=== PATIENT | female | born 1940 | race Caucasian/White ===

== ENCOUNTER 2018-09-08 11:47 | Day surgery (SDC) | payer MEDICARE ==
[~2018-09-08 11:47] MED LIST: Sodium Chloride 0.9% 1000 ML 1,000 ML IV SCH
[2018-09-08] MEDS ORDERED: VERSED 5 MG/5 ML IV ONE (11:48)
[2018-09-08] MEDS ORDERED: DEMEROL 50 MG IV ONE ×2 (11:48)
[2018-09-08] MEDS ORDERED: XYLOCAINE 1% HCL 20 ML MDV ONE (13:13)
--- NOTE | 2018-09-08 14:19 | HP ---
DATE OF SURGERY: 09/08/2018 ADMISSION DIAGNOSIS: Undesired port. ANTICIPATED PROCEDURE: Port removal. HISTORY OF PRESENT ILLNESS: The patient requiring port removal, was placed in [place]. PAST MEDICAL HISTORY: ALLERGIES: NONE. MEDICATIONS: See list. PAST SURGICAL HISTORY: Knee surgery. Elbow surgery. Hysterectomy. SOCIAL HISTORY: Negative. FAMILY HISTORY: Negative. REVIEW OF SYSTEMS: Chronic obstructive pulmonary disease. PHYSICAL EXAMINATION: VITAL SIGNS: Normal. CHEST: Clear. COR: Regular. IMPRESSION: Undesired port. PLAN: Port removal.
[2018-09-08 14:24] VITALS: BP 143/83; PULSE 75; O2SAT 90
--- NOTE | 2018-09-09 08:49 | OP ---
SURGERY DATE/TIME: 09/08/2018 1318 PREOPERATIVE DIAGNOSIS: Undesired port. POSTOPERATIVE DIAGNOSIS: Undesired port. PROCEDURE: Port removal. SURGEON: Ramsey Harp M.D. ANESTHESIA: Local IV sedation. COMPLICATIONS: None. CONDITION: Stable. INDICATION: A patient requiring port removal. DESCRIPTION OF PROCEDURE: Taken to surgery. Routine prep and drape. IV sedation was titrated. Oximetry was kept over 90%. Lidocaine 1%. The catheter port removed in toto, closed with 3-0 Vicryl, 4-0 Vicryl and Steri-Strips. The patient tolerated the procedure satisfactorily.
== END 2018-09-08 14:46 | disposition home or self-care (01) ==
LOC: SDC 11:47
PROVIDERS: ATTEND Surgery
DX: Z45.2 Encounter for adjustment and management of vascular access device (principal); J44.9 Chronic obstructive pulmonary disease, unspecified; Z79.899 Other long term (current) drug therapy
CPT/HCPCS: J2175; J2250

== ENCOUNTER 2024-11-01 12:50 | Observation (INO) | payer MEDICARE ==
[~2024-11-01 12:50] MED LIST changes: +DUONEB 0.5-3 MG/3 ml Neb IH SCH; -Sodium Chloride 0.9% 1000 ML 1,000 ML IV SCH
--- NOTE | 2024-11-01 13:10 | ERPHSYRPT ---
- History of Present Illness Time Seen by Provider: 11/01/24 13:10 Source: patient, family, old records Exam Limitations: clinical condition Physician History: This is a 4-year-old white female patient arrives by private vehicle and is a patient Dr. Ojeda with worsening shortness of breath over this past weekend. Today, the shortness of breath was worse and patient went to the primary care physician's office where her room air oxygen saturation level without oxygen was 80%. Patient arrived to the emergency department with a room air oxygen saturation of 85%. Patient normally wears 3.5 L of oxygen via nasal cannula only at nighttime. However over the weekend she has worn it /. When we placed her on her 3.5 L of oxygen via nasal cannula her oxygen sat duration level increased to 97%. Patient denies chest pain. She has a mild cough. She has not had a fever. Patient has a history of insomnia, hyperlipidemia, gastroesophageal reflux disease, hypothyroidism, coronary disease, COPD, asthma, DVT and is on Xarelto Activities at Onset: none Severity of Dyspnea-Max: moderate Severity of Dyspnea-Current: moderate Possible Cause: occasional episodes Modifying Factors: Improves With: coughing (Mild), exertion (Worsens), oxygen (Improves) Associated Symptoms: No chest pain/discomfort Allergies/Adverse Reactions: No Known Drug Allergies Allergy (Verified 09/08/18 12:00) Home Medications: Albuterol Sulfate 0.63 mg IH Q4HPRN PRN 09/08/18 [History] Ascorbic Acid [Vitamin C] 1,000 mg PO DAILY 09/08/18 [History] Celecoxib [Celebrex] 100 mg PO BID 09/08/18 [History] Cholecalciferol (Vitamin D3) [Vitamin D] 5,000 unit PO DAILY 09/08/18 [History] Escitalopram Oxalate [Lexapro] 10 mg PO DAILY 09/08/18 [History] Levothyroxine Sodium 150 mcg PO DAILY 09/08/18 [History] Multivitamin [Multivitamins] 1 each PO DAILY 09/08/18 [History] Oxybutynin Chloride [Oxybutynin Chloride ER] 10 mg PO DAILY 09/08/18 [History] PANTOPRAZOLE 40 mg Tablet [Protonix 40MG Tablet] 40 mg PO DAILY 09/08/18 [History] Rivaroxaban [Xarelto] 20 mg PO DAILY 09/08/18 [History] Simvastatin 40 mg PO DAILY 09/08/18 [History] Trazodone HCl [Desyrel] 100 mg PO HS 09/08/18 [History] Vitamin B Complex [Super B Complex] 1 each PO DAILY 09/08/18 [History] Travel Risk - International Travel Have you traveled outside of the country in past 3 weeks: No - Emerging Infectious Disease Are you exhibiting symptoms associated with any current EIDs: Yes Symptoms: Cough: New Onset, Shortness of Breath - Review of Systems Constitutional: No Symptoms Eyes: No Symptoms Ears, Nose, & Throat: No Symptoms Respiratory: Dyspnea, Dyspnea on 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) Cardiac: No Symptoms Abdominal/Gastrointestinal: No Symptoms Genitourinary Symptoms: No Symptoms Musculoskeletal: No Symptoms Skin: No Symptoms Neurological: No Symptoms Psychological: No Symptoms Endocrine: No Symptoms Hematologic/Lymphatic: No Symptoms Immunological/Allergic: No Symptoms All Other Systems: Reviewed and Negative - Past Medical History Pertinent Past Medical History: Yes Neurological History: No Pertinent History ENT History: No Pertinent History Cardiac History: Coronary Artery Disease, Deep Vein Thrombosis Respiratory History: Asthma, COPD, Sleep Apnea, Other Endocrine Medical History: No Pertinent History Musculoskeletal History: No Pertinent History GI Medical History: GERD History: No Pertinent History Psycho-Social History: Depression Female Reproductive Disorders: Breast Cancer - Past Surgical History Past Surgical History: Yes Neuro Surgical History: No Pertinent History Cardiac: No Pertinent History Respiratory: No Pertinent History Gastrointestinal: No Pertinent History Genitourinary: No Pertinent History Musculoskeletal: Orthopedic Surgery Female Surgical History: Hysterectomy Other Surgical History: port placement, 2 knee replacements, elbow, veins stripped. - Social History Smoking Status: Former smoker Exposure to second hand smoke: No Drug Use: none - Nursing Vital Signs Nursing Vital Signs: Initial Vital Signs Temperature 98.7 F 11/01/24 12:51 Pulse Rate 98 H 11/01/24 12:51 Respiratory Rate 26 H 11/01/24 12:51 Blood Pressure 147/94 11/01/24 12:51 O2 Sat by Pulse Oximetry 85 L 11/01/24 12:51 Pain Scale Pain Intensity 0 - Physical Exam General Appearance: mild distress, alert, anxiety, obese Eye Exam: PERRL/EOMI, eyes nml inspection Ears, Nose, Throat Exam: hearing grossly normal, normal ENT inspection, normal pharynx Neck Exam: normal inspection, non-tender, supple, full range of motion Respiratory Exam: respiratory distress, diminished breath sounds (I lateral bases), wheezing, No chest tenderness Cardiovascular/Chest Exam: normal heart sounds, regular rate/rhythm Abdominal/Gastrointestinal Exam: soft, normal bowel sounds, No tenderness Rectal Exam: not done Extremity Exam: non-tender, normal range of motion, normal inspection, pelvis stable Neurologic Exam: alert, oriented x 3, cooperative, business development coordinator II-XII nml as tested, nml cerebellar function, nml station & gait, sensation nml Skin Exam: normal color, warm, dry Lymphatic Exam: No adenopathy SpO2 Interpretation: normal O2 Delivery: Room Air - Course Nursing assessment & vital signs reviewed: Yes EKG Interpreted by Me: RATE, Sinus Rhythm, NORMAL AXIS, NORMAL QRS, Other (QTc 450. Prolonged DC interval. No acute ischemia on today's twelve-lead EKG.) Ordered Tests: Active Orders 24 hr Category Date Time Status Motorcycle Sales Associate STAT Care 11/01/24 13:13 Active EKG-ER Only STAT Care 11/01/24 13:12 Active IV Insertion STAT Care 11/01/24 13:12 Active Pulse Oximetry (ED) STAT Care 11/01/24 13:12 Active CHEST 1 VIEW (PORTABLE) Stat Exams 11/01/24 13:13 Completed BLOOD CULTURE Stat Lab 11/01/24 13:35 Received CBC W DIFF Stat Lab 11/01/24 13:35 Completed CMP Stat Lab 11/01/24 13:35 Completed Lactic Acid Stat Lab 11/01/24 13:12 Completed MAGNESIUM Stat Lab 11/01/24 13:35 Completed NT PRO BNPII Stat Lab 11/01/24 13:35 Completed TROPONIN Q4H Lab 11/01/24 13:35 Completed TROPONIN Q4H Lab 11/01/24 17:15 Ordered TROPONIN Q4H Lab 11/01/24 21:15 Ordered VENOUS BLOOD GAS Stat Lab 11/01/24 13:13 Completed Respiratory Therapy Assessment DAILY RT 11/01/24 14:11 Active Medication Summary Discontinued Medications Generic Name Dose Route Start Last Admin Trade Name Freq PRN Reason Stop Dose Admin Albuterol/Ipratropium Confirm 11/01/24 14:05 Ipratropium/Albuterol Sulfate 3 Ml Ampul.Neb Administered 11/01/24 14:06 Dose 3 ml IH .STK-MED ONE Albuterol/Ipratropium 3 ml 11/01/24 14:11 11/01/24 14:11 Ipratropium/Albuterol Sulfate 3 Ml Ampul.Neb IH 11/01/24 14:12 3 ml STAT ONE Administration Ceftriaxone Sodium 1 gm in 100 mls @ 200 mls/hr 11/01/24 13:51 11/01/24 13:56 Rocephin 1 Gm / 100 Ml Nacl IV 11/01/24 14:20 200 mls/hr STAT ONE 200 mls/hr Administration Ceftriaxone Sodium Confirm 11/01/24 13:54 Rocephin 1 Gm / 100 Ml Nacl Administered 11/01/24 13:55 Dose 1 gm in 100 mls @ ud IV .STK-MED ONE Lab/Rad Data: Laboratory Result Diagrams 11/01/24 13:35 11/01/24 13:35 Laboratory Results 11/01/24 11/01/24 11/01/24 Range/Units 13:35 13:35 13:35 WBC 7.7 (3.98-10.04) x10^3/uL RBC 3.77 L (3.93-5.22) x10^6/uL Hgb 12.1 (11.2-15.7) g/dL Hct 37.6 (34.1-44.9) % MCV 99.7 H (79.4-94.8) fL MCH 32.1 (25.6-32.2) pg MCHC 32.2 (32.2-35.5) g/dL RDW 12.5 (11.7-14.4) % Plt Count 239 (182-369) x10^3/uL MPV 9.0 L (9.4-12.3) fL Gran % 57.8 (34.0-71.1) % Immature Gran % (Auto) 0.3 (0.001-0.429) % Nucleat RBC Rel Count 0.0 (0.00-0.2) % Eos # (Auto) 1.18 H (0.04-0.36) x10^3/uL Immature Gran # (Auto) 0.02 (0.001-0.031) x10^3u/L Absolute Lymphs (auto) 1.24 (1.18-3.74) x10^3/uL Absolute Monos (auto) 0.69 (0.24-0.86) x10^3/uL Absolute Nucleated RBC 0.00 (0.00-0.012) x10^3u/L Lymphocytes % 16.0 L (19.3-51.7) % Monocytes % 8.9 (4.7-12.5) % Eosinophils % 15.3 H (0.7-5.8) % Basophils % 1.7 H (0.1-1.2) % Absolute Granulocytes 4.47 (1.56-6.13) x10^3/uL Basophils # 0.13 H (0.01-0.08) x10^3/uL pO2/FiO2 Ratio % VBG pH (7.32-7.42) VBG pCO2 at Pat Temp (42-55) mm/Hg VBG pO2 at Pat Temp (25-40) mm/Hg VBG HCO3 (22-28) meq/L VBG O2 Sat (Dominic) (95-100) VBG Base Excess (-2.0-2.0) VBG Hemoglobin VBG Carboxyhemoglobin (0.0-6.9) % T HGB POC Potassium (3.5-5.1) Sodium 138 (135-145) mmol/L Potassium 4.2 (3.5-5.1) mmol/L Chloride 99 (98-107) mmol/L Carbon Dioxide 30 (22-30) mmol/L Anion Gap 13.2 (5-15) MEQ/L BUN 23 H (7-17) mg/dL Creatinine 1.87 H (0.52-1.04) mg/dL Estimated GFR 26.5 ML/MIN Glucose 102 (74-106) mg/dL Lactic Acid (0.4-2.0) Calcium 11.1 H (8.4-10.2) mg/dL Magnesium 2.2 (1.6-2.3) mg/dL Total Bilirubin 0.30 (0.2-1.3) mg/dL AST 44 H (14-36) U/L ALT 37 H (0-35) U/L Alkaline Phosphatase 83 (38-126) U/L Troponin I < 0.012 (0.000-0.033) ng/mL NT-Pro-B Natriuret Pep 189 (<300) pg/mL Serum Total Protein 6.7 (6.3-8.2) g/dL Albumin 4.3 (3.5-5.0) g/dL Influenza Type A Ag (NEGATIVE) Influenza Type B Ag (NEGATIVE) RSV (PCR) (NEGATIVE) SARS-CoV-2 (PCR) (NEGATIVE) 11/01/24 11/01/24 11/01/24 Range/Units 13:30 13:13 13:12 WBC (3.98-10.04) x10^3/uL RBC (3.93-5.22) x10^6/uL Hgb (11.2-15.7) g/dL Hct (34.1-44.9) % MCV (79.4-94.8) fL MCH (25.6-32.2) pg MCHC (32.2-35.5) g/dL RDW (11.7-14.4) % Plt Count (182-369) x10^3/uL MPV (9.4-12.3) fL Gran % (34.0-71.1) % Immature Gran % (Auto) (0.001-0.429) % Nucleat RBC Rel Count (0.00-0.2) % Eos # (Auto) (0.04-0.36) x10^3/uL Immature Gran # (Auto) (0.001-0.031) x10^3u/L Absolute Lymphs (auto) (1.18-3.74) x10^3/uL Absolute Monos (auto) (0.24-0.86) x10^3/uL Absolute Nucleated RBC (0.00-0.012) x10^3u/L Lymphocytes % (19.3-51.7) % Monocytes % (4.7-12.5) % Eosinophils % (0.7-5.8) % Basophils % (0.1-1.2) % Absolute Granulocytes (1.56-6.13) x10^3/uL Basophils # (0.01-0.08) x10^3/uL pO2/FiO2 Ratio 21.0 % VBG pH 7.43 H (7.32-7.42) VBG pCO2 at Pat Temp 50 (42-55) mm/Hg VBG pO2 at Pat Temp 43 H (25-40) mm/Hg VBG HCO3 33.2 H* (22-28) meq/L VBG O2 Sat (Dominic) 77.6 L (95-100) VBG Base Excess 7.5 H (-2.0-2.0) VBG Hemoglobin 13.3 VBG Carboxyhemoglobin 6.6 (0.0-6.9) % T HGB POC Potassium 4.2 (3.5-5.1) Sodium (135-145) mmol/L Potassium (3.5-5.1) mmol/L Chloride (98-107) mmol/L Carbon Dioxide (22-30) mmol/L Anion Gap (5-15) MEQ/L BUN (7-17) mg/dL Creatinine (0.52-1.04) mg/dL Estimated GFR ML/MIN Glucose (74-106) mg/dL Lactic Acid 1.7 (0.4-2.0) Calcium (8.4-10.2) mg/dL Magnesium (1.6-2.3) mg/dL Total Bilirubin (0.2-1.3) mg/dL AST (14-36) U/L ALT (0-35) U/L Alkaline Phosphatase (38-126) U/L Troponin I (0.000-0.033) ng/mL NT-Pro-B Natriuret Pep (<300) pg/mL Serum Total Protein (6.3-8.2) g/dL Albumin (3.5-5.0) g/dL Influenza Type A Ag NEGATIVE (NEGATIVE) Influenza Type B Ag NEGATIVE (NEGATIVE) RSV (PCR) NEGATIVE (NEGATIVE) SARS-CoV-2 (PCR) NEGATIVE (NEGATIVE) - Progress Progress: improved, re-examined Air Movement: fair Progress Note: 11/01/24 14:26 My medical decision making and the assignment of high complexity of this patient's medical issue today is based on review of the patient's past medical history, review the patient's medication list, reviewed the patient's drug allergy list, history present notes and physical findings on examination. The workup in this patient includes placement of intravenous line, blood culture, CBC, CMP, lactic acid level, twelve-lead EKG, chest x-ray, BNP level, troponin level, PT/INR level. Differential diagnosis includes but is not limited to viral illness, pneumonia, upper respiratory infection, congestive heart failure, myocardial infarction, arrhythmia 11/01/24 14:52 Interpreted the patient's laboratory data results. Based on laboratory data results, the patient does have a GFR of 26. This is a chronic finding. She has mildly elevated transaminase levels. 11/01/24 14:53 I interpreted the patient's preliminary chest x-ray report. Patient has a right lower lobe infiltrate. No other significant findings present. The radiologist interpreted the patient's final chest x-ray report. The impression states bilateral lower lung interstitial opacities. Possible pneumonia/pneumonitis 11/01/24 15:[address] Justice, the telehospitalist on at this time. I reviewed the patient history, presenting complaint, workup performed and the results of the workup. He accepts the patient to be placed in observation. Will continue monitoring this patient and repeat twelve-lead EKG, provide the patient with oxygen, RT evaluation and intravenous antibiotics Blood Culture(s) Obtained: Yes Antibiotics given: Yes Counseled pt/family regarding: lab results, diagnosis, rad results Medical Desision Making - Independent Historian Additional History obtained from: Family - Diagnostic Testing Diagnostic test were ordered, analyzed, and reviewed by me: Yes Radiological Interpretation: Interpreted by me, Reviewed by me, Teleradiologist Report - Risk of complications The pt has a high risk of morbidity or mortality based on: Decision regarding hospitilization or escalation of hosp level of care - Departure Departure Disposition: Observation Clinical Impression: Shortness of breath, Hypoxia, Bilateral pneumonia Condition: Fair Critical Care Time: Yes Critical Care Time(excluding separately billable procedures): Critical 30-74 mins (65) Referrals: CLAIRE MAY MD [Primary Care Provider, [facility]] - Follow up/PCP as directed
--- NOTE | 2024-11-01 13:49 | XRAY ---
Indication: Short of breath. Comparison: None Portable chest demonstrates bilateral lower lung interstitial alveolar opacities, possible pneumonia/pneumonitis in right clinical setting. No consolidation/large effusion. Heart not enlarged with large hiatal hernia and intrathoracic stomach occupying left lung base. Bony thorax intact with osteopenia and degenerative changes.
[2024-11-01] MEDS ORDERED: ROCEPHIN 1 GM / 100 ML NaCl 1 GM/100 ML IVPB IV ONE (13:54)
[2024-11-01 13:56] LABS: BASOPHIL % 1.7 % (0.1-1.2); Basophil (Absolute #) 0.13 x10^3/uL (0.01-0.08); Eosinophil (Absolute #) 1.18 x10^3/uL (0.04-0.36); Hematocrit 37.6 % (34.1-44.9); Hemoglobin 12.1 g/dL (11.2-15.7); IMMATURE GRAN # 0.02 x10^3u/L (0.001-0.031); IMMATURE GRAN % 0.3 % (0.001-0.429); Lymphocyte (Absolute #) 1.24 x10^3/uL (1.18-3.74); Mean Corpuscular Hemoglobin 32.1 pg (25.6-32.2); Mean Corpuscular Hgb Concent. 32.2 g/dL (32.2-35.5); Monocyte (Absolute #) 0.69 x10^3/uL (0.24-0.86); NUCLEATED RBC # 0.00 x10^3u/L (0.00-0.012); NUCLEATED RBC % 0.0 % (0.00-0.2); Platelet Count 239 x10^3/uL (182-369); Red Blood Count 3.77 x10^6/uL (3.93-5.22); White Blood Count 7.7 x10^3/uL (3.98-10.04)
[2024-11-01] MEDS: ROCEPHIN 1 GM / 100 ML NaCl 1 GM/100 ML IVPB IV ONE (13:56)
[2024-11-01 14:05] LABS: VBG BASE EXCESS 7.5 (-2.0-2.0); VBG CARBOXYHEMOGLOBIN 6.6 % T HGB (0.0-6.9); VBG FIO2 21.0 %; VBG HCO3- 33.2 meq/L (22-28); VBG HEMOGLOBIN 13.3; VBG O2 SATURATION 77.6 (95-100); VBG PCO2 50.0 mm/Hg (42-55); VBG PO2 43.0 mm/Hg (25-40); VBG POTASSIUM 4.2 (3.5-5.1)
[2024-11-01] MEDS ORDERED: DUONEB 0.5-3 MG/3 ml Neb IH ONE (14:05)
[2024-11-01] MEDS: DUONEB 0.5-3 MG/3 ml Neb IH ONE (14:11)
[2024-11-01 14:24] LABS: Calcium 11.1 mg/dL (8.4-10.2); Carbon Dioxide 30.0 mmol/L (22-30); Creatinine 1 1.87 mg/dL (0.52-1.04); EST GLOMERULAR FILTRATION RATE 26.5 ML/MIN; Glucose 102.0 mg/dL (74-106); NT PRO BNPII 189.0 pg/mL (<300); Potassium 4.2 mmol/L (3.5-5.1); SGOT/AST 44.0 U/L (14-36); SGPT/ALT 37.0 U/L (0-35); Total Protein 6.7 g/dL (6.3-8.2)
[2024-11-01 14:46] LABS: INFLUENZA A NEGATIVE (NEGATIVE); INFLUENZA B NEGATIVE (NEGATIVE); RESPIRATORY SYNCTIAL VIRUS NEGATIVE (NEGATIVE); SARS-CoV-2 Xpert Express NEGATIVE (NEGATIVE)
[2024-11-01] MEDS ORDERED: Zofran 4 MG/2 ML VIAL IV PRN (16:47)
[2024-11-01] MEDS ORDERED: DUONEB 0.5-3 MG/3 ml Neb IH PRN (17:11)
--- NOTE | 2024-11-01 17:25 | PCM.HP ---
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 She presented to the emergency department on 11/01/24 with complaints of worsening shortness of breath that began over the weekend and acutely worsened on the day of presentation, when her primary care provider noted a room air oxygen saturation of 80%. She reports a productive cough with yellow/brown production and wheezing. She denies fever, CP, abdominal pain, N/V/D, headache or recent sick contacts. On arrival to the ED, she was hypoxic, tachycardic, and tachypneic, with room air oxygen saturation of 85%. She was placed on oxygen at 2L with spo2 recovered at 94% . EKG showed sinus rhythm without ischemic changes. Labs revealed creatinine 1.87 mg/dL (baseline1.38), AST 44 U/L and ALT 37 U/L (mild elevation from baseline), negative troponin on initial draw, and negative respiratory viral panel. Venous blood gas demonstrated pH 7.43, PO? 43 mmHg, NAK415.2 mmol/L, O? saturation 77.6%, and base excess +7.5, consistent with compensated metabolic alkalosis and hypoxemia. Chest X-ray revealed bilateral lower lung interstitial-alveolar opacities concerning for pneumonia, without kelly consolidation or effusion. The heart was not enlarged. Additional findings included a large hiatal hernia with intrathoracic stomach occupying the left lung base, contributing to reduced lung expansion. No acute pleural effusion was seen. In the ED, she received DuoNebs, ceftriaxone, and azithromycin. She was admitted for further management. - Review of Systems Constitutional: Weakness Eyes: No Symptoms Ears, Nose, & Throat: No Symptoms Respiratory: Cough, Short Of Breath, Wheezing Cardiac: No Symptoms Abdominal/Gastrointestinal: No Symptoms Genitourinary Symptoms: No Symptoms Musculoskeletal: No Symptoms Skin: No Symptoms Neurological: No Symptoms Psychological: No Symptoms Endocrine: No Symptoms Hematologic/Lymphatic: No Symptoms Immunological/Allergic: No Symptoms Medications & Allergies Home Medications: Home Medication List Allopurinol 300 mg [Zyloprim 300 mg] 300 mg PO DAILY 11/01/24 [History Confirmed 11/01/24] Amlodipine Besylate 5 mg [Norvasc 5 mg] 5 mg PO DAILY 11/01/24 [History Confirmed 11/01/24] Levothyroxine Sodium 112 Mcg [Synthroid 112 Mcg] 112 mcg PO DAILY 11/01/24 [History Confirmed 11/01/24] Multivit-Min/Iron/Folic/Lutein [Centrum Silver Women Tablet] 1 each PO DAILY 11/01/24 [History Confirmed 11/01/24] Pantoprazole Sodium [Protonix] 40 mg PO DAILY 11/01/24 [History Confirmed 11/01/24] Rivaroxaban [Xarelto] 20 mg PO HS 11/01/24 [History Confirmed 11/01/24] Simvastatin 40 mg PO HS 11/01/24 [History Confirmed 11/01/24] Spironolactone 25 mg PO DAILY 11/01/24 [History Confirmed 11/01/24] Torsemide 20 mg [Demadex 20 mg] 20 mg PO DAILY 11/01/24 [History Confirmed 11/01/24] Tramadol HCl 25 mg PO DAILY 11/01/24 [History Confirmed 11/01/24] Tramadol HCl 50 mg [Ultram 50 mg] 50 mg PO HS 11/01/24 [History Confirmed 11/01/24] Vilazodone HCl 20 mg PO DAILY 11/01/24 [History Confirmed 11/01/24] Allergies/Adverse Reactions: Allergies Allergy/AdvReac Type Severity Reaction Status Date / Time No Known Drug Allergies Allergy Verified 09/08/18 12:00 - Past Medical History Past Medical History: Yes Neurological History: No Pertinent History ENT History: No Pertinent History Cardiac History: Coronary Artery Disease, Deep Vein Thrombosis Respiratory History: Asthma, COPD, Sleep Apnea, Other Endocrine Medical History: No Pertinent History Musculoskelatal History: No Pertinent History GI Medical History: GERD History: No Pertinent History Pyscho-Social History: Depression Reproductive Disorders: Breast Cancer - Past Surgical History Past Surgical History: Yes Neuro Surgical History: No Pertinent History Cardiac History: No Pertinent History Respiratory Surgery: No Pertinent History GI Surgical History: No Pertinent History Genitourinary Surgical Hx: No Pertinent History Musculskeletal Surgical Hx: Orthopedic Surgery Female Surgical History: Hysterectomy Other Surgical History: Patient states. 2 knee replacements and veins stripped in legs - Social History Smoking Status: Former smoker Exposure to second hand smoke: No Alcohol: None Drug Use: none - Social Determinants of Health Will the patient participate in the screening: Declined to provide - Physical Exam Vital Signs: Vital Signs - 24 hr Temp Pulse Resp BP BP Pulse Ox 11/01/24 16:00 74 19 121/72 94 L 11/01/24 15:33 74 14 97/47 94 L 11/01/24 15:32 77 17 75/60 92 L 11/01/24 15:00 83 16 101/70 93 L 11/01/24 14:30 77 18 107/83 91 L 11/01/24 14:12 81 20 98 11/01/24 14:00 72 14 106/73 95 11/01/24 13:53 74 18 98/71 98 11/01/24 13:52 71 17 97 11/01/24 13:51 71 21 96 11/01/24 13:40 0 L 11 L 11/01/24 13:31 0 L 15 98 11/01/24 13:12 97 11/01/24 13:00 0 L 17 134/98 97 11/01/24 12:53 100 H 12 147/94 11/01/24 12:51 98.7 F 98 H 26 H 147/94 85 L General Appearance: no apparent distress Neurologic Exam: alert, oriented x 3, cooperative Eye Exam: PERRL/EOMI Ears, Nose, Throat Exam: normal ENT inspection Neck Exam: normal inspection Respiratory Exam: crackles/rales, wheezing Cardiovascular Exam: regular rate/rhythm, normal heart sounds Pelvic Exam: not done Rectal Exam: deferred Back Exam: normal inspection Extremity Exam: normal inspection Skin Exam: normal color Results - Labs Lab/Micro Results: Lab Results-Last 24 Hours 11/01/24 11/01/24 11/01/24 Range/Units 13:12 13:13 13:30 WBC (3.98-10.04) x10^3/uL RBC (3.93-5.22) x10^6/uL Hgb (11.2-15.7) g/dL Hct (34.1-44.9) % MCV (79.4-94.8) fL MCH (25.6-32.2) pg MCHC (32.2-35.5) g/dL RDW (11.7-14.4) % Plt Count (182-369) x10^3/uL MPV (9.4-12.3) fL Gran % (34.0-71.1) % Immature Gran % (Auto) (0.001-0.429) % Nucleat RBC Rel Count (0.00-0.2) % Eos # (Auto) (0.04-0.36) x10^3/uL Immature Gran # (Auto) (0.001-0.031) x10^3u/L Absolute Lymphs (auto) (1.18-3.74) x10^3/uL Absolute Monos (auto) (0.24-0.86) x10^3/uL Absolute Nucleated RBC (0.00-0.012) x10^3u/L Lymphocytes % (19.3-51.7) % Monocytes % (4.7-12.5) % Eosinophils % (0.7-5.8) % Basophils % (0.1-1.2) % Absolute Granulocytes (1.56-6.13) x10^3/uL Basophils # (0.01-0.08) x10^3/uL pO2/FiO2 Ratio 21.0 % VBG pH 7.43 H (7.32-7.42) VBG pCO2 at Pat Temp 50 (42-55) mm/Hg VBG pO2 at Pat Temp 43 H (25-40) mm/Hg VBG HCO3 33.2 H* (22-28) meq/L VBG O2 Sat (Dominic) 77.6 L (95-100) VBG Base Excess 7.5 H (-2.0-2.0) VBG Hemoglobin 13.3 VBG Carboxyhemoglobin 6.6 (0.0-6.9) % T HGB POC Potassium 4.2 (3.5-5.1) Sodium (135-145) mmol/L Potassium (3.5-5.1) mmol/L Chloride (98-107) mmol/L Carbon Dioxide (22-30) mmol/L Anion Gap (5-15) MEQ/L BUN (7-17) mg/dL Creatinine (0.52-1.04) mg/dL Estimated GFR ML/MIN Glucose (74-106) mg/dL Lactic Acid 1.7 (0.4-2.0) Calcium (8.4-10.2) mg/dL Magnesium (1.6-2.3) mg/dL Total Bilirubin (0.2-1.3) mg/dL AST (14-36) U/L ALT (0-35) U/L Alkaline Phosphatase (38-126) U/L Troponin I (0.000-0.033) ng/mL NT-Pro-B Natriuret Pep (<300) pg/mL Serum Total Protein (6.3-8.2) g/dL Albumin (3.5-5.0) g/dL Influenza Type A Ag NEGATIVE (NEGATIVE) Influenza Type B Ag NEGATIVE (NEGATIVE) RSV (PCR) NEGATIVE (NEGATIVE) SARS-CoV-2 (PCR) NEGATIVE (NEGATIVE) 11/01/24 11/01/24 11/01/24 Range/Units 13:35 13:35 13:35 WBC 7.7 (3.98-10.04) x10^3/uL RBC 3.77 L (3.93-5.22) x10^6/uL Hgb 12.1 (11.2-15.7) g/dL Hct 37.6 (34.1-44.9) % MCV 99.7 H (79.4-94.8) fL MCH 32.1 (25.6-32.2) pg MCHC 32.2 (32.2-35.5) g/dL RDW 12.5 (11.7-14.4) % Plt Count 239 (182-369) x10^3/uL MPV 9.0 L (9.4-12.3) fL Gran % 57.8 (34.0-71.1) % Immature Gran % (Auto) 0.3 (0.001-0.429) % Nucleat RBC Rel Count 0.0 (0.00-0.2) % Eos # (Auto) 1.18 H (0.04-0.36) x10^3/uL Immature Gran # (Auto) 0.02 (0.001-0.031) x10^3u/L Absolute Lymphs (auto) 1.24 (1.18-3.74) x10^3/uL Absolute Monos (auto) 0.69 (0.24-0.86) x10^3/uL Absolute Nucleated RBC 0.00 (0.00-0.012) x10^3u/L Lymphocytes % 16.0 L (19.3-51.7) % Monocytes % 8.9 (4.7-12.5) % Eosinophils % 15.3 H (0.7-5.8) % Basophils % 1.7 H (0.1-1.2) % Absolute Granulocytes 4.47 (1.56-6.13) x10^3/uL Basophils # 0.13 H (0.01-0.08) x10^3/uL pO2/FiO2 Ratio % VBG pH (7.32-7.42) VBG pCO2 at Pat Temp (42-55) mm/Hg VBG pO2 at Pat Temp (25-40) mm/Hg VBG HCO3 (22-28) meq/L VBG O2 Sat (Dominic) (95-100) VBG Base Excess (-2.0-2.0) VBG Hemoglobin VBG Carboxyhemoglobin (0.0-6.9) % T HGB POC Potassium (3.5-5.1) Sodium 138 (135-145) mmol/L Potassium 4.2 (3.5-5.1) mmol/L Chloride 99 (98-107) mmol/L Carbon Dioxide 30 (22-30) mmol/L Anion Gap 13.2 (5-15) MEQ/L BUN 23 H (7-17) mg/dL Creatinine 1.87 H (0.52-1.04) mg/dL Estimated GFR 26.5 ML/MIN Glucose 102 (74-106) mg/dL Lactic Acid (0.4-2.0) Calcium 11.1 H (8.4-10.2) mg/dL Magnesium 2.2 (1.6-2.3) mg/dL Total Bilirubin 0.30 (0.2-1.3) mg/dL AST 44 H (14-36) U/L ALT 37 H (0-35) U/L Alkaline Phosphatase 83 (38-126) U/L Troponin I < 0.012 (0.000-0.033) ng/mL NT-Pro-B Natriuret Pep 189 (<300) pg/mL Serum Total Protein 6.7 (6.3-8.2) g/dL Albumin 4.3 (3.5-5.0) g/dL Influenza Type A Ag (NEGATIVE) Influenza Type B Ag (NEGATIVE) RSV (PCR) (NEGATIVE) SARS-CoV-2 (PCR) (NEGATIVE) - Radiology Impressions Radiology Exams & Impressions: Radiology Procedures Category Date Time Status CHEST 1 VIEW (PORTABLE) Stat Exams 11/01/24 13:13 Completed - Other Procedures and Tests Respiratory Therapy 11/01/24 16:47 EKG REPEAT IN AM Oxygen Nasal Cannula 3.5 lpm Respiratory Therapy Consult ONCE 11/01/24 17:11 Respiratory MDI UD 11/01/24 17:12 BiPap/CPAP ROUTINE Respiratory Therapy Assessment DAILY Assessment/Plan (1) Acute respiratory failure with hypoxia Current Visit: Yes Status: Acute Assessment & Plan: -secondary to community-acquired pneumonia in the setting of COPD - CXR demonstrating pneumonia -Continue ceftriaxone and azithromycin -Add Solu-Medrol 40 mg IV q12h -Continue DuoNebs scheduled and PRN -Continue home inhalers -CPAP at night with 3 L O2 -Supplemental oxygen to maintain SpO2> 90% -Flutter therapy and incentive spirometer for pulmonary hygiene -RT evaluation for ongoing therapy and optimization of airway clearance -Monitor for clinical improvement and repeat imaging if deterioration occurs -check DDimer- CTA if elevated with h/o multiple clots and previous failure of anticoag Code(s): J96.01 - ACUTE RESPIRATORY FAILURE WITH HYPOXIA (2) MALIK (acute kidney injury) Current Visit: Yes Status: Acute Assessment & Plan: -Monitor renal function and electrolytes -Avoid nephrotoxic agents -Adjust antibiotic dosing if renal function worsens -baseline creat at 1.38 - reviewed at 1.87 -gentle hydration Code(s): N17.9 - ACUTE KIDNEY FAILURE, UNSPECIFIED (3) Pneumonia Current Visit: Yes Status: Acute Assessment & Plan: -see ARF Code(s): J18.9 - PNEUMONIA, UNSPECIFIED ORGANISM (4) COPD exacerbation Current Visit: Yes Status: Acute Assessment & Plan: -see ARF Code(s): J44.1 - CHRONIC OBSTRUCTIVE PULMONARY DISEASE W (ACUTE) EXACERBATION (5) Hypothyroid Current Visit: Yes Status: Acute Assessment & Plan: -Continue levothyroxine Code(s): E03.9 - HYPOTHYROIDISM, UNSPECIFIED (6) History of pulmonary embolism Current Visit: Yes Status: Acute Assessment & Plan: -continue xarelto Code(s): Z86.711 - PERSONAL HISTORY OF PULMONARY EMBOLISM (7) History of DVT (deep vein thrombosis) Current Visit: Yes Status: Acute Assessment & Plan: -continue xarelto Code(s): Z86.718 - PERSONAL HISTORY OF OTHER VENOUS THROMBOSIS AND EMBOLISM (8) CAD (coronary artery disease) Current Visit: Yes Status: Acute Assessment & Plan: -continue home meds Code(s): I25.10 - ATHSCL HEART DISEASE OF [place] CORONARY ARTERY W/O ANG PCTRS (9) HLD (hyperlipidemia) Current Visit: Yes Status: Acute Assessment & Plan: -continue statin Code(s): E78.5 - HYPERLIPIDEMIA, UNSPECIFIED (10) History of breast cancer Current Visit: Yes Status: Acute Assessment & Plan: -s/p chemo/radiation/lumpectomy - 8 years ago VTE: Xarelto PPI: protonix Dispo: 1-3 days Code status: Full Code Plan of care time spent 45 minutes Code(s): Z85.3 - PERSONAL HISTORY OF MALIGNANT NEOPLASM OF BREAST Telemedicine Encounter - Telemedicine Encounter Telemedicine Encounter: "The entirety of this encounter was performed via Telemedicine" This visit was performed using real-time audio and video connection between my location and thepatients locationwith the assistance of a surrogateat the patients location. Written or verbal consent was obtained from the patient/guardian to perform this [facility]. Any patient questions regarding the telemedicine interaction were answered.
[2024-11-01] MEDS: Advair Hfa 115/21 Common canister IH SCH (17:40)
[2024-11-01] MEDS: DUONEB 0.5-3 MG/3 ml Neb IH SCH (17:41)
[2024-11-01] MEDS: ZITHROMAX IV*** 500 MG in Sodium Chloride 0.9% 250 ML 250 ML IV SCH (19:04)
[2024-11-01] MEDS ORDERED: XARELTO 10 MG TABLET ONE (22:30)
[2024-11-01] MEDS ORDERED: ZOCOR 20MG ONE (22:31)
[2024-11-01] MEDS ORDERED: Sterile H2O 10 ml IJ ONE (22:31)
[2024-11-01] MEDS: solu-MEDROL 40 MG, Sterile H2O 10 ml 1 ML IV SCH (22:43)
[2024-11-01] MEDS: NON-FORMULARY ITEM (Rivaroxaban [Xarelto] 20 MG Tablet) PO SCH (22:44)
[2024-11-01] MEDS: TYLENOL EXTRA STRENGTH 500 MG PO SCH (22:44)
[2024-11-01] MEDS: ULTRAM 50 MG PO SCH (22:45)
[2024-11-01] MEDS: NON-FORMULARY ITEM (Simvastatin [Simvastatin] 40 MG Tablet) PO SCH (22:45)
[2024-11-01] MEDS: BENADRYL 25 MG CAPSULE PO PRN (22:45)
--- NOTE | 2024-11-02 05:17 | PCM.NOTE ---
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 She presented to the emergency department on 11/01/24 with complaints of worsening shortness of breath that began over the weekend and acutely worsened on the day of presentation, when her primary care provider noted a room air oxygen saturation of 80%. She reports a productive cough with yellow/brown production and wheezing. She denies fever, CP, abdominal pain, N/V/D, headache or recent sick contacts. On arrival to the ED, she was hypoxic, tachycardic, and tachypneic, with room air oxygen saturation of 85%. She was placed on oxygen at 2L with spo2 recovered at 94% . EKG showed sinus rhythm without ischemic changes. Labs revealed creatinine 1.87 mg/dL (baseline1.38), AST 44 U/L and ALT 37 U/L (mild elevation from baseline), negative troponin on initial draw, and negative respiratory viral panel. Venous blood gas demonstrated pH 7.43, PO? 43 mmHg, NLU139.2 mmol/L, O? saturation 77.6%, and base excess +7.5, consistent with compensated metabolic alkalosis and hypoxemia. Chest X-ray revealed bilateral lower lung interstitial-alveolar opacities concerning for pneumonia, without kelly consolidation or effusion. The heart was not enlarged. Additional findings included a large hiatal hernia with intrathoracic stomach occupying the left lung base, contributing to reduced lung expansion. No acute pleural effusion was seen. In the ED, she received DuoNebs, ceftriaxone, and azithromycin. She was admitted for further management. 11/02/24: Met with patient bedside. Endorses significant improvement in dyspnea. Lung sounds with wheezing throughout and remains at 3L oxygen. Labs with noted improvement to creat now at 1.78 from 1.87 with 1.4 baseline. Plan for continued abx/steroids/ IVF. Most likely can dc home tomorrow pending clinical response. Will attempt to titrate oxygen. - Review of Systems Constitutional: No Symptoms Eyes: No Symptoms Ears, Nose, & Throat: No Symptoms Respiratory: Cough, Short Of Breath, Wheezing Cardiac: No Symptoms Abdominal/Gastrointestinal: No Symptoms Genitourinary Symptoms: No Symptoms Musculoskeletal: No Symptoms Skin: No Symptoms Neurological: No Symptoms Psychological: No Symptoms Endocrine: No Symptoms Hematologic/Lymphatic: No Symptoms Immunological/Allergic: No Symptoms Objective Exam General Appearance: no apparent distress Neurologic Exam: alert, oriented x 3, cooperative Skin Exam: normal color Eye Exam: PERRL Ears, Nose, Throat Exam: TM abnormal (R) Neck Exam: normal inspection Respiratory Exam: diminished breath sounds, wheezing Cardiovascular Exam: regular rate/rhythm, normal heart sounds Gastrointestinal/Abdomen Exam: soft, normal bowel sounds Extremity Exam: normal inspection Back Exam: normal inspection Pelvic Exam: deferred Rectal Exam: deferred Objective Data Vital Signs: Vital Signs - 24 hr Temp Pulse Resp BP BP Pulse Ox 11/02/24 03:00 97.8 F 78 20 139/66 93 L 11/02/24 01:04 68 20 91 L 11/01/24 23:00 98.3 F 72 18 104/61 94 L 11/01/24 19:00 97.7 F 69 20 111/56 95 11/01/24 17:52 96 11/01/24 17:44 81 20 96 11/01/24 16:00 74 19 121/72 94 L 11/01/24 15:33 74 14 97/47 94 L 11/01/24 15:32 77 17 75/60 92 L 11/01/24 15:00 83 16 101/70 93 L 11/01/24 14:30 77 18 107/83 91 L 11/01/24 14:12 81 20 98 11/01/24 14:00 72 14 106/73 95 11/01/24 13:53 74 18 98/71 98 11/01/24 13:52 71 17 97 11/01/24 13:51 71 21 96 11/01/24 13:40 0 L 11 L 11/01/24 13:31 0 L 15 98 11/01/24 13:12 97 11/01/24 13:00 0 L 17 134/98 97 11/01/24 12:53 100 H 12 147/94 11/01/24 12:51 98.7 F 98 H 26 H 147/94 85 L Pain Assessment - Last Documented Pain Intensity 0 Intake and Output: Intake & Output 10/30/24 10/31/24 11/01/24 11/02/24 11:59 11:59 11:59 11:59 Intake Total 100 Balance 100 Weight 120.8 kg Lab Results: Lab Results-Last 24 Hours 11/01/24 11/01/24 11/01/24 Range/Units 13:12 13:13 13:30 WBC (3.98-10.04) x10^3/uL RBC (3.93-5.22) x10^6/uL Hgb (11.2-15.7) g/dL Hct (34.1-44.9) % MCV (79.4-94.8) fL MCH (25.6-32.2) pg MCHC (32.2-35.5) g/dL RDW (11.7-14.4) % Plt Count (182-369) x10^3/uL MPV (9.4-12.3) fL Gran % (34.0-71.1) % Immature Gran % (Auto) (0.001-0.429) % Nucleat RBC Rel Count (0.00-0.2) % Eos # (Auto) (0.04-0.36) x10^3/uL Immature Gran # (Auto) (0.001-0.031) x10^3u/L Absolute Lymphs (auto) (1.18-3.74) x10^3/uL Absolute Monos (auto) (0.24-0.86) x10^3/uL Absolute Nucleated RBC (0.00-0.012) x10^3u/L Lymphocytes % (19.3-51.7) % Monocytes % (4.7-12.5) % Eosinophils % (0.7-5.8) % Basophils % (0.1-1.2) % Absolute Granulocytes (1.56-6.13) x10^3/uL Basophils # (0.01-0.08) x10^3/uL D-Dimer (0.0-0.50) mg/L pO2/FiO2 Ratio 21.0 % VBG pH 7.43 H (7.32-7.42) VBG pCO2 at Pat Temp 50 (42-55) mm/Hg VBG pO2 at Pat Temp 43 H (25-40) mm/Hg VBG HCO3 33.2 H* (22-28) meq/L VBG O2 Sat (Dominic) 77.6 L (95-100) VBG Base Excess 7.5 H (-2.0-2.0) VBG Hemoglobin 13.3 VBG Carboxyhemoglobin 6.6 (0.0-6.9) % T HGB POC Potassium 4.2 (3.5-5.1) Sodium (135-145) mmol/L Potassium (3.5-5.1) mmol/L Chloride (98-107) mmol/L Carbon Dioxide (22-30) mmol/L Anion Gap (5-15) MEQ/L BUN (7-17) mg/dL Creatinine (0.52-1.04) mg/dL Estimated GFR ML/MIN Glucose (74-106) mg/dL Lactic Acid 1.7 (0.4-2.0) Calcium (8.4-10.2) mg/dL Magnesium (1.6-2.3) mg/dL Total Bilirubin (0.2-1.3) mg/dL AST (14-36) U/L ALT (0-35) U/L Alkaline Phosphatase (38-126) U/L Troponin I (0.000-0.033) ng/mL NT-Pro-B Natriuret Pep (<300) pg/mL Serum Total Protein (6.3-8.2) g/dL Albumin (3.5-5.0) g/dL Influenza Type A Ag NEGATIVE (NEGATIVE) Influenza Type B Ag NEGATIVE (NEGATIVE) RSV (PCR) NEGATIVE (NEGATIVE) SARS-CoV-2 (PCR) NEGATIVE (NEGATIVE) 11/01/24 11/01/24 11/01/24 Range/Units 13:35 13:35 13:35 WBC 7.7 (3.98-10.04) x10^3/uL RBC 3.77 L (3.93-5.22) x10^6/uL Hgb 12.1 (11.2-15.7) g/dL Hct 37.6 (34.1-44.9) % MCV 99.7 H (79.4-94.8) fL MCH 32.1 (25.6-32.2) pg MCHC 32.2 (32.2-35.5) g/dL RDW 12.5 (11.7-14.4) % Plt Count 239 (182-369) x10^3/uL MPV 9.0 L (9.4-12.3) fL Gran % 57.8 (34.0-71.1) % Immature Gran % (Auto) 0.3 (0.001-0.429) % Nucleat RBC Rel Count 0.0 (0.00-0.2) % Eos # (Auto) 1.18 H (0.04-0.36) x10^3/uL Immature Gran # (Auto) 0.02 (0.001-0.031) x10^3u/L Absolute Lymphs (auto) 1.24 (1.18-3.74) x10^3/uL Absolute Monos (auto) 0.69 (0.24-0.86) x10^3/uL Absolute Nucleated RBC 0.00 (0.00-0.012) x10^3u/L Lymphocytes % 16.0 L (19.3-51.7) % Monocytes % 8.9 (4.7-12.5) % Eosinophils % 15.3 H (0.7-5.8) % Basophils % 1.7 H (0.1-1.2) % Absolute Granulocytes 4.47 (1.56-6.13) x10^3/uL Basophils # 0.13 H (0.01-0.08) x10^3/uL D-Dimer (0.0-0.50) mg/L pO2/FiO2 Ratio % VBG pH (7.32-7.42) VBG pCO2 at Pat Temp (42-55) mm/Hg VBG pO2 at Pat Temp (25-40) mm/Hg VBG HCO3 (22-28) meq/L VBG O2 Sat (Dominic) (95-100) VBG Base Excess (-2.0-2.0) VBG Hemoglobin VBG Carboxyhemoglobin (0.0-6.9) % T HGB POC Potassium (3.5-5.1) Sodium 138 (135-145) mmol/L Potassium 4.2 (3.5-5.1) mmol/L Chloride 99 (98-107) mmol/L Carbon Dioxide 30 (22-30) mmol/L Anion Gap 13.2 (5-15) MEQ/L BUN 23 H (7-17) mg/dL Creatinine 1.87 H (0.52-1.04) mg/dL Estimated GFR 26.5 ML/MIN Glucose 102 (74-106) mg/dL Lactic Acid (0.4-2.0) Calcium 11.1 H (8.4-10.2) mg/dL Magnesium 2.2 (1.6-2.3) mg/dL Total Bilirubin 0.30 (0.2-1.3) mg/dL AST 44 H (14-36) U/L ALT 37 H (0-35) U/L Alkaline Phosphatase 83 (38-126) U/L Troponin I < 0.012 (0.000-0.033) ng/mL NT-Pro-B Natriuret Pep 189 (<300) pg/mL Serum Total Protein 6.7 (6.3-8.2) g/dL Albumin 4.3 (3.5-5.0) g/dL Influenza Type A Ag (NEGATIVE) Influenza Type B Ag (NEGATIVE) RSV (PCR) (NEGATIVE) SARS-CoV-2 (PCR) (NEGATIVE) 11/01/24 11/01/24 11/01/24 Range/Units 17:01 21:45 21:45 WBC (3.98-10.04) x10^3/uL RBC (3.93-5.22) x10^6/uL Hgb (11.2-15.7) g/dL Hct (34.1-44.9) % MCV (79.4-94.8) fL MCH (25.6-32.2) pg MCHC (32.2-35.5) g/dL RDW (11.7-14.4) % Plt Count (182-369) x10^3/uL MPV (9.4-12.3) fL Gran % (34.0-71.1) % Immature Gran % (Auto) (0.001-0.429) % Nucleat RBC Rel Count (0.00-0.2) % Eos # (Auto) (0.04-0.36) x10^3/uL Immature Gran # (Auto) (0.001-0.031) x10^3u/L Absolute Lymphs (auto) (1.18-3.74) x10^3/uL Absolute Monos (auto) (0.24-0.86) x10^3/uL Absolute Nucleated RBC (0.00-0.012) x10^3u/L Lymphocytes % (19.3-51.7) % Monocytes % (4.7-12.5) % Eosinophils % (0.7-5.8) % Basophils % (0.1-1.2) % Absolute Granulocytes (1.56-6.13) x10^3/uL Basophils # (0.01-0.08) x10^3/uL D-Dimer < 0.19 (0.0-0.50) mg/L pO2/FiO2 Ratio % VBG pH (7.32-7.42) VBG pCO2 at Pat Temp (42-55) mm/Hg VBG pO2 at Pat Temp (25-40) mm/Hg VBG HCO3 (22-28) meq/L VBG O2 Sat (Dominic) (95-100) VBG Base Excess (-2.0-2.0) VBG Hemoglobin VBG Carboxyhemoglobin (0.0-6.9) % T HGB POC Potassium (3.5-5.1) Sodium (135-145) mmol/L Potassium (3.5-5.1) mmol/L Chloride (98-107) mmol/L Carbon Dioxide (22-30) mmol/L Anion Gap (5-15) MEQ/L BUN (7-17) mg/dL Creatinine (0.52-1.04) mg/dL Estimated GFR ML/MIN Glucose (74-106) mg/dL Lactic Acid (0.4-2.0) Calcium (8.4-10.2) mg/dL Magnesium (1.6-2.3) mg/dL Total Bilirubin (0.2-1.3) mg/dL AST (14-36) U/L ALT (0-35) U/L Alkaline Phosphatase (38-126) U/L Troponin I < 0.012 < 0.012 (0.000-0.033) ng/mL NT-Pro-B Natriuret Pep (<300) pg/mL Serum Total Protein (6.3-8.2) g/dL Albumin (3.5-5.0) g/dL Influenza Type A Ag (NEGATIVE) Influenza Type B Ag (NEGATIVE) RSV (PCR) (NEGATIVE) SARS-CoV-2 (PCR) (NEGATIVE) Radiology Exams: Radiology Procedures Category Date Time Status CHEST 1 VIEW (PORTABLE) Stat Exams 11/01/24 13:13 Completed Medications: Medications Generic Name Dose Route Start Last Admin Trade Name Freq PRN Reason Stop Dose Admin Acetaminophen 650 mg 11/01/24 16:47 Acetaminophen 325 Mg Tablet PO 12/01/24 16:46 Q4H PRN PRN PAIN, FEVER, HEADACHE Acetaminophen 500 mg 11/01/24 22:00 11/01/24 22:44 Acetaminophen 500 Mg Tablet PO 12/01/24 21:59 500 mg HS THI Administration Albuterol/Ipratropium 3 ml 11/01/24 17:11 Ipratropium/Albuterol Sulfate 3 Ml Ampul.[facility] 12/01/24 17:10 Q4HPRN PRN SHORTNESS OF BREATH/WHEEZING Albuterol/Ipratropium 3 ml 11/01/24 19:00 11/02/24 01:04 Ipratropium/Albuterol Sulfate 3 Ml Ampul.[facility] 12/01/24 18:59 3 ml Q6HRT THI Administration Amlodipine Besylate 5 mg 11/02/24 10:00 Amlodipine Besylate 5 Mg Tablet PO 12/02/24 09:59 DAILY THI Methylprednisolone Sodium 0 mg 11/01/24 22:00 11/01/24 22:43 Succinate 40 mg/ Sterile Water IV 12/01/24 21:59 40 mg 1 ml Q8HT THI Administration Diphenhydramine HCl 25 mg 11/01/24 22:22 11/01/24 22:45 Diphenhydramine Hcl 25 Mg Capsule PO 12/01/24 22:21 25 mg HS PRN PRN Administration INSOMNIA Ceftriaxone Sodium 1 gm in 100 mls @ 200 mls/hr 11/02/24 10:00 Rocephin 1 Gm / 100 Ml Nacl IV 12/02/24 09:59 Q24H10 THI Azithromycin 500 mg/ Sodium 250 mls @ 250 mls/hr 11/01/24 18:00 11/01/24 19:04 Chloride IV 12/01/24 17:59 250 mls/hr Q24H10 THI Administration Sodium Chloride 1,000 mls @ 50 mls/hr 11/01/24 17:45 11/01/24 19:02 Sodium Chloride 0.9% 1000 Ml IV 12/01/24 17:44 50 mls/hr .Q20H THI Administration Levothyroxine Sodium 112 mcg 11/02/24 10:00 Levothyroxine Sodium 112 Mcg Tablet PO 12/02/24 09:59 DAILY THI Non-Formulary Medication 1 each 11/02/24 10:00 Multivit-Min/Iron/Folic/Lutein [Centrum Silver Women Tablet] PO 12/02/24 09:59 DAILY THI Non-Formulary Medication 40 mg 11/01/24 22:00 11/01/24 22:45 Simvastatin [Simvastatin] PO 12/01/24 21:59 40 mg HS THI Administration Non-Formulary Medication 25 mg 11/02/24 10:00 Tramadol Hcl [Tramadol Hcl] PO 12/02/24 09:59 DAILY THI Non-Formulary Medication 20 mg 11/02/24 10:00 Vilazodone Hcl [Vilazodone Hcl] PO 12/02/24 09:59 DAILY THI Non-Formulary Medication 20 mg 11/01/24 22:00 11/01/24 22:44 Rivaroxaban [Xarelto] PO 12/01/24 21:59 20 mg HS THI Administration Ondansetron HCl 4 mg 11/01/24 16:47 Ondansetron Hcl 4 Mg/2 Ml Vial IV 12/01/24 16:46 Q6H PRN PRN NAUSEA/VOMITING Pantoprazole Sodium 40 mg 11/02/24 10:00 Protonix (Pantoprazole) 40 Mg Tablet PO 12/02/24 09:59 DAILY THI Fluticasone/Salmeterol 2 puff 11/01/24 19:00 11/01/24 17:40 Fluticasone/Salmeterol 115/21 60 Puff Aer.W.Adap IH 12/01/24 18:59 2 puff BIDRT THI Administration Tramadol HCl 50 mg 11/01/24 22:00 11/01/24 22:45 Tramadol Hcl 50 Mg Tablet PO 12/01/24 21:59 50 mg HS THI Administration Discontinued Medications Generic Name Dose Route Start Last Admin Trade Name Freq PRN Reason Stop Dose Admin Albuterol/Ipratropium Confirm 11/01/24 14:05 Ipratropium/Albuterol Sulfate 3 Ml Ampul.Neb Administered 11/01/24 14:06 Dose 3 ml IH .STK-MED ONE Albuterol/Ipratropium 3 ml 11/01/24 14:11 11/01/24 14:11 Ipratropium/Albuterol Sulfate 3 Ml Ampul.Neb IH 11/01/24 14:12 3 ml STAT ONE Administration Ceftriaxone Sodium 1 gm in 100 mls @ 200 mls/hr 11/01/24 13:51 11/01/24 14:40 Rocephin 1 Gm / 100 Ml Nacl IV 11/01/24 14:20 Infused STAT ONE Infusion Ceftriaxone Sodium Confirm 11/01/24 13:54 Rocephin 1 Gm / 100 Ml Nacl Administered 11/01/24 13:55 Dose 1 gm in 100 mls @ ud IV .STK-MED ONE Methylprednisolone Sodium Succinate Confirm 11/01/24 22:29 Methylprednisolone Sod Suc 40m 40 Mg/Ml Vial Administered 11/01/24 22:30 Dose 40 mg .ROUTE .STK-MED ONE Rivaroxaban Confirm 11/01/24 22:30 Rivaroxaban 10 Mg Tablet Administered 11/01/24 22:31 Dose 20 mg .ROUTE .STK-MED ONE Simvastatin Confirm 11/01/24 22:31 Simvastatin 20 Mg Tablet Administered 11/01/24 22:32 Dose 40 mg .ROUTE .STK-MED ONE Sterile Water Confirm 11/01/24 22:31 Water For Injection,Sterile 10 Ml Vial Administered 11/01/24 22:32 Dose 10 ml IJ .STK-MED ONE Assessment/Plan (1) Acute respiratory failure with hypoxia Current Visit: Yes Status: Acute Assessment & Plan: -secondary to community-acquired pneumonia in the setting of COPD - CXR demonstrating pneumonia -Continue ceftriaxone and azithromycin -Add Solu-Medrol 40 mg IV q12h -Continue DuoNebs scheduled and PRN -Continue home inhalers -CPAP at night with 3 L O2 -Supplemental oxygen to maintain SpO2> 90% -Flutter therapy and incentive spirometer for pulmonary hygiene -RT evaluation for ongoing therapy and optimization of airway clearance -Monitor for clinical improvement and repeat imaging if deterioration occurs -check DDimer- CTA if elevated with h/o multiple clots and previous failure of anticoag 11/02: -DDimer WNL -Continue ceftriaxone/azithromycin/solumedrol/nebs/INH -Titrate oxygen as tolerated Code(s): J96.01 - ACUTE RESPIRATORY FAILURE WITH HYPOXIA (2) MALIK (acute kidney injury) Current Visit: Yes Status: Acute Assessment & Plan: -Monitor renal function and electrolytes -Avoid nephrotoxic agents -Adjust antibiotic dosing if renal function worsens -baseline creat at 1.38 - reviewed at 1.87 -gentle hydration 11/02: -Creat improved at 1.78- baseline around 1.38- continue IVF Code(s): N17.9 - ACUTE KIDNEY FAILURE, UNSPECIFIED (3) Pneumonia Current Visit: Yes Status: Acute Assessment & Plan: -see ARF Code(s): J18.9 - PNEUMONIA, UNSPECIFIED ORGANISM (4) COPD exacerbation Current Visit: Yes Status: Acute Assessment & Plan: -see ARF Code(s): J44.1 - CHRONIC OBSTRUCTIVE PULMONARY DISEASE W (ACUTE) EXACERBATION (5) Hypothyroid Current Visit: Yes Status: Acute Assessment & Plan: -Continue levothyroxine Code(s): E03.9 - HYPOTHYROIDISM, UNSPECIFIED (6) History of pulmonary embolism Current Visit: Yes Status: Acute Assessment & Plan: -continue xarelto Code(s): Z86.711 - PERSONAL HISTORY OF PULMONARY EMBOLISM (7) History of DVT (deep vein thrombosis) Current Visit: Yes Status: Acute Assessment & Plan: -continue xarelto Code(s): Z86.718 - PERSONAL HISTORY OF OTHER VENOUS THROMBOSIS AND EMBOLISM (8) CAD (coronary artery disease) Current Visit: Yes Status: Acute Assessment & Plan: -continue home meds Code(s): I25.10 - ATHSCL HEART DISEASE OF [place] CORONARY ARTERY W/O ANG PCTRS (9) HLD (hyperlipidemia) Current Visit: Yes Status: Acute Assessment & Plan: -continue statin Code(s): E78.5 - HYPERLIPIDEMIA, UNSPECIFIED (10) History of breast cancer Current Visit: Yes Status: Acute Assessment & Plan: -s/p chemo/radiation/lumpectomy - 8 years ago VTE: Xarelto PPI: protonix Dispo: 1-3 days Code status: Full Code Plan of care time spent 40 minutes Code(s): J96.01 - ACUTE RESPIRATORY FAILURE WITH HYPOXIA (2) MALIK (acute kidney injury) Current Visit: Yes Status: Acute Code(s): N17.9 - ACUTE KIDNEY FAILURE, UNSPECIFIED (3) Pneumonia Current Visit: Yes Status: Acute Code(s): J18.9 - PNEUMONIA, UNSPECIFIED ORGANISM (4) COPD exacerbation Current Visit: Yes Status: Acute Code(s): J44.1 - CHRONIC OBSTRUCTIVE PULMONARY DISEASE W (ACUTE) EXACERBATION (5) Hypothyroid Current Visit: Yes Status: Acute Code(s): E03.9 - HYPOTHYROIDISM, UNSPECIFIED (6) History of pulmonary embolism Current Visit: Yes Status: Acute Code(s): Z86.711 - PERSONAL HISTORY OF PULMONARY EMBOLISM (7) History of DVT (deep vein thrombosis) Current Visit: Yes Status: Acute Code(s): Z86.718 - PERSONAL HISTORY OF OTHER VENOUS THROMBOSIS AND EMBOLISM (8) CAD (coronary artery disease) Current Visit: Yes Status: Acute Code(s): I25.10 - ATHSCL HEART DISEASE OF [place] CORONARY ARTERY W/O ANG PCTRS (9) HLD (hyperlipidemia) Current Visit: Yes Status: Acute Code(s): E78.5 - HYPERLIPIDEMIA, UNSPECIFIED (10) History of breast cancer Current Visit: Yes Status: Acute Code(s): Z85.3 - PERSONAL HISTORY OF MALIGNANT NEOPLASM OF BREAST
[2024-11-02 05:28] LABS: BASOPHIL % 1.0 % (0.1-1.2); Basophil (Absolute #) 0.05 x10^3/uL (0.01-0.08); Eosinophil (Absolute #) 0.05 x10^3/uL (0.04-0.36); Hematocrit 35.4 % (34.1-44.9); Hemoglobin 11.4 g/dL (11.2-15.7); IMMATURE GRAN # 0.02 x10^3u/L (0.001-0.031); IMMATURE GRAN % 0.4 % (0.001-0.429); Lymphocyte (Absolute #) 0.82 x10^3/uL (1.18-3.74); Mean Corpuscular Hemoglobin 32.1 pg (25.6-32.2); Mean Corpuscular Hgb Concent. 32.2 g/dL (32.2-35.5); Monocyte (Absolute #) 0.09 x10^3/uL (0.24-0.86); NUCLEATED RBC # 0.00 x10^3u/L (0.00-0.012); NUCLEATED RBC % 0.0 % (0.00-0.2); Platelet Count 220 x10^3/uL (182-369); Red Blood Count 3.55 x10^6/uL (3.93-5.22); White Blood Count 5.0 x10^3/uL (3.98-10.04)
[2024-11-02 06:11] LABS: Calcium 10.6 mg/dL (8.4-10.2); Carbon Dioxide 28.0 mmol/L (22-30); Creatinine 1 1.78 mg/dL (0.52-1.04); EST GLOMERULAR FILTRATION RATE 28.2 ML/MIN; Glucose 170.0 mg/dL (74-106); NT PRO BNPII 273.0 pg/mL (<300); Potassium 4.4 mmol/L (3.5-5.1); SGOT/AST 45.0 U/L (14-36); SGPT/ALT 39.0 U/L (0-35); Total Protein 6.8 g/dL (6.3-8.2)
[2024-11-02] MEDS ORDERED: MEDICATION INTERVENTION MC SCH (08:15)
[2024-11-02] MEDS: NORVASC 5 MG PO SCH (08:51)
[2024-11-02] MEDS: Protonix 40MG Tablet PO SCH (08:51)
[2024-11-02] MEDS: ULTRAM 50 MG PO SCH (08:51)
[2024-11-02] MEDS: THERAGRAN MULTIVITAMIN PO SCH (08:51)
[2024-11-02] MEDS: SYNTHROID 112 MCG PO SCH (08:52)
[2024-11-02] MEDS: ROCEPHIN 1 GM / 100 ML NaCl 1 GM/100 ML IVPB IV SCH (08:54)
[2024-11-02] MEDS ORDERED: TRAMADOL HCL 25 MG PO SCH (10:00)
[2024-11-02] MEDS ORDERED: NON-FORMULARY ITEM (Multivit-Min/Iron/Folic/Lutein [Centrum Silver Women Tablet] 1 EACH Ta PO SCH (10:00)
[2024-11-02] MEDS ORDERED: NON-FORMULARY ITEM (Vilazodone Hcl [Vilazodone Hcl] 20 MG Tablet) PO SCH (10:00)
[2024-11-02] MEDS: TYLENOL 325 MG PO PRN (18:17)
[2024-11-02] MEDS: ZOCOR 20MG PO SCH (21:30)
[2024-11-02] MEDS: XARELTO 10 MG TABLET PO SCH (21:30)
[2024-11-03 05:23] LABS: BASOPHIL % 0.2 % (0.1-1.2); Basophil (Absolute #) 0.02 x10^3/uL (0.01-0.08); Eosinophil (Absolute #) 0 x10^3/uL (0.04-0.36); Hematocrit 32.5 % (34.1-44.9); Hemoglobin 10.3 g/dL (11.2-15.7); IMMATURE GRAN # 0.06 x10^3u/L (0.001-0.031); IMMATURE GRAN % 0.6 % (0.001-0.429); Lymphocyte (Absolute #) 0.82 x10^3/uL (1.18-3.74); Mean Corpuscular Hemoglobin 31.7 pg (25.6-32.2); Mean Corpuscular Hgb Concent. 31.7 g/dL (32.2-35.5); Monocyte (Absolute #) 0.28 x10^3/uL (0.24-0.86); NUCLEATED RBC # 0.00 x10^3u/L (0.00-0.012); NUCLEATED RBC % 0.0 % (0.00-0.2); Platelet Count 208 x10^3/uL (182-369); Red Blood Count 3.25 x10^6/uL (3.93-5.22); White Blood Count 9.3 x10^3/uL (3.98-10.04)
--- NOTE | 2024-11-03 05:33 | PCM.NOTE ---
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 She presented to the emergency department on 11/01/24 with complaints of worsening shortness of breath that began over the weekend and acutely worsened on the day of presentation, when her primary care provider noted a room air oxygen saturation of 80%. She reports a productive cough with yellow/brown production and wheezing. She denies fever, CP, abdominal pain, N/V/D, headache or recent sick contacts. On arrival to the ED, she was hypoxic, tachycardic, and tachypneic, with room air oxygen saturation of 85%. She was placed on oxygen at 2L with spo2 recovered at 94% . EKG showed sinus rhythm without ischemic changes. Labs revealed creatinine 1.87 mg/dL (baseline1.38), AST 44 U/L and ALT 37 U/L (mild elevation from baseline), negative troponin on initial draw, and negative respiratory viral panel. Venous blood gas demonstrated pH 7.43, PO? 43 mmHg, XTL038.2 mmol/L, O? saturation 77.6%, and base excess +7.5, consistent with compensated metabolic alkalosis and hypoxemia. Chest X-ray revealed bilateral lower lung interstitial-alveolar opacities concerning for pneumonia, without kelly consolidation or effusion. The heart was not enlarged. Additional findings included a large hiatal hernia with intrathoracic stomach occupying the left lung base, contributing to reduced lung expansion. No acute pleural effusion was seen. In the ED, she received DuoNebs, ceftriaxone, and azithromycin. She was admitted for further management. 11/02/24: Met with patient bedside. Endorses significant improvement in dyspnea. Lung sounds with wheezing throughout and remains at 3L oxygen. Labs with noted improvement to creat now at 1.78 from 1.87 with 1.4 baseline. Plan for continued abx/steroids/ IVF. Most likely can dc home tomorrow pending clinical response. Will attempt to titrate oxygen. Objective Data Vital Signs: Vital Signs - 24 hr Temp Pulse Resp BP Pulse Ox 11/03/24 03:00 97.7 F 71 18 111/55 91 L 11/03/24 01:18 65 18 95 11/02/24 23:00 97.9 F 78 18 112/55 94 L 11/02/24 19:18 77 20 95 11/02/24 19:00 98 F 77 18 123/60 91 L 11/02/24 15:00 98 F 75 20 127/60 93 L 11/02/24 13:05 78 16 95 11/02/24 11:00 97.2 F 94 H 18 122/69 97 11/02/24 07:20 69 18 96 11/02/24 07:00 97.9 F 69 16 101/50 94 L 11/02/24 05:48 66 14 94 L Pain Assessment - Last Documented Pain Intensity 9 Pain Scale Used 0-10 Pain Scale Intake and Output: Intake & Output 10/31/24 11/01/24 11/02/24 11/03/24 11:59 11:59 11:59 11:59 Intake Total 340 3475 Output Total 400 Balance 340 3075 Weight 121.2 kg Lab Results: Lab Results-Last 24 Hours 11/02/24 11/02/24 11/03/24 Range/Units 05:10 05:10 04:37 WBC 5.0 9.3 (3.98-10.04) x10^3/uL RBC 3.55 L 3.25 L (3.93-5.22) x10^6/uL Hgb 11.4 10.3 L (11.2-15.7) g/dL Hct 35.4 32.5 L (34.1-44.9) % MCV 99.7 H 100.0 H (79.4-94.8) fL MCH 32.1 31.7 (25.6-32.2) pg MCHC 32.2 31.7 L (32.2-35.5) g/dL RDW 12.6 12.6 (11.7-14.4) % Plt Count 220 208 (182-369) x10^3/uL MPV 9.2 L 9.7 (9.4-12.3) fL Gran % 79.5 H 87.3 H (34.0-71.1) % Immature Gran % (Auto) 0.4 0.6 H (0.001-0.429) % Nucleat RBC Rel Count 0.0 0.0 (0.00-0.2) % Eos # (Auto) 0.05 0 L (0.04-0.36) x10^3/uL Immature Gran # (Auto) 0.02 0.06 H (0.001-0.031) x10^3u/L Absolute Lymphs (auto) 0.82 L 0.82 L (1.18-3.74) x10^3/uL Absolute Monos (auto) 0.09 L 0.28 (0.24-0.86) x10^3/uL Absolute Nucleated RBC 0.00 0.00 (0.00-0.012) x10^3u/L Lymphocytes % 16.3 L 8.9 L (19.3-51.7) % Monocytes % 1.8 L 3.0 L (4.7-12.5) % Eosinophils % 1.0 0.0 L (0.7-5.8) % Basophils % 1.0 0.2 (0.1-1.2) % Absolute Granulocytes 4.00 8.08 H (1.56-6.13) x10^3/uL Basophils # 0.05 0.02 (0.01-0.08) x10^3/uL Sodium 139 (135-145) mmol/L Potassium 4.4 (3.5-5.1) mmol/L Chloride 100 (98-107) mmol/L Carbon Dioxide 28 (22-30) mmol/L Anion Gap 14.5 (5-15) MEQ/L BUN 23 H (7-17) mg/dL Creatinine 1.78 H (0.52-1.04) mg/dL Estimated GFR 28.2 ML/MIN Glucose 170 H (74-106) mg/dL Calcium 10.6 H (8.4-10.2) mg/dL Total Bilirubin 0.10 L (0.2-1.3) mg/dL AST 45 H (14-36) U/L ALT 39 H (0-35) U/L Alkaline Phosphatase 74 (38-126) U/L NT-Pro-B Natriuret Pep 273 (<300) pg/mL Serum Total Protein 6.8 (6.3-8.2) g/dL Albumin 4.2 (3.5-5.0) g/dL Radiology Exams: Radiology Procedures Category Date Time Status CHEST 1 VIEW (PORTABLE) Stat Exams 11/01/24 13:13 Completed Medications: Medications Generic Name Dose Route Start Last Admin Trade Name Freq PRN Reason Stop Dose Admin Acetaminophen 650 mg 11/01/24 16:47 11/02/24 18:17 Acetaminophen 325 Mg Tablet PO 12/01/24 16:46 650 mg Q4H PRN PRN Administration PAIN, FEVER, HEADACHE Acetaminophen 500 mg 11/01/24 22:00 11/02/24 21:30 Acetaminophen 500 Mg Tablet PO 12/01/24 21:59 500 mg HS THI Administration Albuterol/Ipratropium 3 ml 11/01/24 17:11 Ipratropium/Albuterol Sulfate 3 Ml Ampul.[facility] 12/01/24 17:10 Q4HPRN PRN SHORTNESS OF BREATH/WHEEZING Albuterol/Ipratropium 3 ml 11/01/24 19:00 11/03/24 01:18 Ipratropium/Albuterol Sulfate 3 Ml Ampul.[facility] 12/01/24 18:59 3 ml Q6HRT THI Administration Amlodipine Besylate 5 mg 11/02/24 10:00 11/02/24 08:51 Amlodipine Besylate 5 Mg Tablet PO 12/02/24 09:59 5 mg DAILY THI Administration Methylprednisolone Sodium 0 mg 11/01/24 22:00 11/02/24 21:30 Succinate 40 mg/ Sterile Water IV 12/01/24 21:59 40 mg 1 ml Q8HT THI Administration Diphenhydramine HCl 25 mg 11/01/24 22:22 11/02/24 21:29 Diphenhydramine Hcl 25 Mg Capsule PO 12/01/24 22:21 25 mg HS PRN PRN Administration INSOMNIA Ceftriaxone Sodium 1 gm in 100 mls @ 200 mls/hr 11/02/24 10:00 11/02/24 08:54 Rocephin 1 Gm / 100 Ml Nacl IV 12/02/24 09:59 200 mls/hr Q24H10 HTI Administration Azithromycin 500 mg/ Sodium 250 mls @ 250 mls/hr 11/01/24 18:00 11/02/24 09:23 Chloride IV 12/01/24 17:59 250 mls/hr Q24H10 THI Administration Sodium Chloride 1,000 mls @ 100 mls/hr 11/01/24 17:45 11/02/24 22:11 Sodium Chloride 0.9% 1000 Ml IV 12/01/24 17:44 100 mls/hr .Q10H THI Administration Levothyroxine Sodium 112 mcg 11/02/24 10:00 11/02/24 08:52 Levothyroxine Sodium 112 Mcg Tablet PO 12/02/24 09:59 112 mcg DAILY THI Administration Miscellaneous Information 1 each 11/02/24 08:15 Medication Intervention 1 Each Each 12/02/24 08:14 .RN TO CHECK THI Multivitamins Therapeutic 1 tab 11/02/24 10:00 11/02/24 08:51 Multivitamins,Therapeutic 1 Tab Tab PO 12/02/24 09:59 1 tab DAILY THI Administration Ondansetron HCl 4 mg 11/01/24 16:47 Ondansetron Hcl 4 Mg/2 Ml Vial IV 12/01/24 16:46 Q6H PRN PRN NAUSEA/VOMITING Pantoprazole Sodium 40 mg 11/02/24 10:00 11/02/24 08:51 Protonix (Pantoprazole) 40 Mg Tablet PO 12/02/24 09:59 40 mg DAILY THI Administration Rivaroxaban 20 mg 11/02/24 22:00 11/02/24 21:30 Rivaroxaban 10 Mg Tablet PO 12/02/24 21:59 20 mg HS THI Administration Fluticasone/Salmeterol 2 puff 11/01/24 19:00 11/02/24 19:17 Fluticasone/Salmeterol 115/21 60 Puff Aer.W.Adap IH 12/01/24 18:59 2 puff BIDRT THI Administration Simvastatin 40 mg 11/02/24 22:00 11/02/24 21:30 Simvastatin 20 Mg Tablet PO 12/02/24 21:59 40 mg HS THI Administration Tramadol HCl 50 mg 11/01/24 22:00 11/02/24 21:29 Tramadol Hcl 50 Mg Tablet PO 12/01/24 21:59 50 mg HS THI Administration Tramadol HCl 25 mg 11/02/24 10:00 11/02/24 08:51 Tramadol Hcl 50 Mg Tablet PO 12/02/24 09:59 25 mg DAILY THI Administration Discontinued Medications Generic Name Dose Route Start Last Admin Trade Name Marley PRN Reason Stop Dose Admin Albuterol/Ipratropium Confirm 11/01/24 14:05 Ipratropium/Albuterol Sulfate 3 Ml Ampul.Neb Administered 11/01/24 14:06 Dose 3 ml IH .STK-MED ONE Albuterol/Ipratropium 3 ml 11/01/24 14:11 11/01/24 14:11 Ipratropium/Albuterol Sulfate 3 Ml Ampul.Neb IH 11/01/24 14:12 3 ml STAT ONE Administration Ceftriaxone Sodium 1 gm in 100 mls @ 200 mls/hr 11/01/24 13:51 11/01/24 14:40 Rocephin 1 Gm / 100 Ml Nacl IV 11/01/24 14:20 Infused STAT ONE Infusion Ceftriaxone Sodium Confirm 11/01/24 13:54 Rocephin 1 Gm / 100 Ml Nacl Administered 11/01/24 13:55 Dose 1 gm in 100 mls @ ud IV .STK-MED ONE Methylprednisolone Sodium Succinate Confirm 11/01/24 22:29 Methylprednisolone Sod Suc 40m 40 Mg/Ml Vial Administered 11/01/24 22:30 Dose 40 mg .ROUTE .STK-MED ONE Methylprednisolone Sodium Succinate Confirm 11/02/24 06:27 Methylprednisolone Sod Suc 40m 40 Mg/Ml Vial Administered 11/02/24 06:28 Dose 40 mg .ROUTE .STK-MED ONE Non-Formulary Medication 40 mg 11/01/24 22:00 11/01/24 22:45 Simvastatin [Simvastatin] PO 12/01/24 21:59 40 mg HS THI Administration Non-Formulary Medication 20 mg 11/01/24 22:00 11/01/24 22:44 Rivaroxaban [Xarelto] PO 12/01/24 21:59 20 mg HS THI Administration Rivaroxaban Confirm 11/01/24 22:30 Rivaroxaban 10 Mg Tablet Administered 11/01/24 22:31 Dose 20 mg .ROUTE .STK-MED ONE Simvastatin Confirm 11/01/24 22:31 Simvastatin 20 Mg Tablet Administered 11/01/24 22:32 Dose 40 mg .ROUTE .STK-MED ONE Sterile Water Confirm 11/01/24 22:31 Water For Injection,Sterile 10 Ml Vial Administered 11/01/24 22:32 Dose 10 ml IJ .STK-MED ONE Assessment/Plan (1) Acute respiratory failure with hypoxia Current Visit: Yes Status: Acute Assessment & Plan: -secondary to community-acquired pneumonia in the setting of COPD - CXR demonstrating pneumonia -Continue ceftriaxone and azithromycin -Add Solu-Medrol 40 mg IV q12h -Continue DuoNebs scheduled and PRN -Continue home inhalers -CPAP at night with 3 L O2 -Supplemental oxygen to maintain SpO2> 90% -Flutter therapy and incentive spirometer for pulmonary hygiene -RT evaluation for ongoing therapy and optimization of airway clearance -Monitor for clinical improvement and repeat imaging if deterioration occurs -check DDimer- CTA if elevated with h/o multiple clots and previous failure of anticoag 11/02: -DDimer WNL -Continue ceftriaxone/azithromycin/solumedrol/nebs/INH -Titrate oxygen as tolerated Code(s): J96.01 - ACUTE RESPIRATORY FAILURE WITH HYPOXIA (2) MALIK (acute kidney injury) Current Visit: Yes Status: Acute Assessment & Plan: -Monitor renal function and electrolytes -Avoid nephrotoxic agents -Adjust antibiotic dosing if renal function worsens -baseline creat at 1.38 - reviewed at 1.87 -gentle hydration 11/02: -Creat improved at 1.78- baseline around 1.38- continue IVF 11/03: -creat 1.29 (baseline around 1.38) Code(s): N17.9 - ACUTE KIDNEY FAILURE, UNSPECIFIED (3) Pneumonia Current Visit: Yes Status: Acute Assessment & Plan: -see ARF Code(s): J18.9 - PNEUMONIA, UNSPECIFIED ORGANISM (4) COPD exacerbation Current Visit: Yes Status: Acute Assessment & Plan: -see ARF Code(s): J44.1 - CHRONIC OBSTRUCTIVE PULMONARY DISEASE W (ACUTE) EXACERBATION (5) Hypothyroid Current Visit: Yes Status: Acute Assessment & Plan: -Continue levothyroxine Code(s): E03.9 - HYPOTHYROIDISM, UNSPECIFIED (6) History of pulmonary embolism Current Visit: Yes Status: Acute Assessment & Plan: -continue xarelto Code(s): Z86.711 - PERSONAL HISTORY OF PULMONARY EMBOLISM (7) History of DVT (deep vein thrombosis) Current Visit: Yes Status: Acute Assessment & Plan: -continue xarelto Code(s): Z86.718 - PERSONAL HISTORY OF OTHER VENOUS THROMBOSIS AND EMBOLISM (8) CAD (coronary artery disease) Current Visit: Yes Status: Acute Assessment & Plan: -continue home meds Code(s): I25.10 - ATHSCL HEART DISEASE OF [place] CORONARY ARTERY W/O ANG PCTRS (9) HLD (hyperlipidemia) Current Visit: Yes Status: Acute Assessment & Plan: -continue statin Code(s): E78.5 - HYPERLIPIDEMIA, UNSPECIFIED (10) History of breast cancer Current Visit: Yes Status: Acute Assessment & Plan: -s/p chemo/radiation/lumpectomy - 8 years ago VTE: Xarelto PPI: protonix Dispo: 1-3 days Code status: Full Code Plan of care time spent 35 minutes Code(s): J96.01 - ACUTE RESPIRATORY FAILURE WITH HYPOXIA (2) MALIK (acute kidney injury) Current Visit: Yes Status: Acute Code(s): N17.9 - ACUTE KIDNEY FAILURE, UNSPECIFIED (3) Pneumonia Current Visit: Yes Status: Acute Code(s): J18.9 - PNEUMONIA, UNSPECIFIED ORGANISM (4) COPD exacerbation Current Visit: Yes Status: Acute Code(s): J44.1 - CHRONIC OBSTRUCTIVE PULMONARY DISEASE W (ACUTE) EXACERBATION (5) Hypothyroid Current Visit: Yes Status: Acute Code(s): E03.9 - HYPOTHYROIDISM, UNSPECIFIED (6) History of pulmonary embolism Current Visit: Yes Status: Acute Code(s): Z86.711 - PERSONAL HISTORY OF PULMONARY EMBOLISM (7) History of DVT (deep vein thrombosis) Current Visit: Yes Status: Acute Code(s): Z86.718 - PERSONAL HISTORY OF OTHER VENOUS THROMBOSIS AND EMBOLISM (8) CAD (coronary artery disease) Current Visit: Yes Status: Acute Code(s): I25.10 - ATHSCL HEART DISEASE OF [place] CORONARY ARTERY W/O ANG PCTRS (9) HLD (hyperlipidemia) Current Visit: Yes Status: Acute Code(s): E78.5 - HYPERLIPIDEMIA, UNSPECIFIED (10) History of breast cancer Current Visit: Yes Status: Acute Code(s): Z85.3 - PERSONAL HISTORY OF MALIGNANT NEOPLASM OF BREAST
[2024-11-03 05:41] LABS: Calcium 10.2 mg/dL (8.4-10.2); Carbon Dioxide 27 mmol/L (22-30); Creatinine 1 1.29 mg/dL (0.52-1.04); EST GLOMERULAR FILTRATION RATE 41.4 ML/MIN; Glucose 159 mg/dL (74-106); Potassium 4.5 mmol/L (3.5-5.1); SGOT/AST 32 U/L (14-36); SGPT/ALT 33 U/L (0-35); Total Protein 6.3 g/dL (6.3-8.2)
[2024-11-03] MEDS: DELTASONE 20 MG PO SCH (09:38)
[2024-11-03 11:38] VITALS: BP 107/55; PULSE 77; RESP 18; TEMP 98.6; O2SAT 98
--- NOTE | 2024-11-03 12:26 | PCM.DS ---
Discharge Summary Date of Admission: 11/01/24 16:42 Date of Discharge: 11/03/24 Admitting Physician: MANAN MELÉNDEZ MD Primary Care Provider: CLAIRE MAY MD Allergies Allergies No Known Drug Allergies Allergy (Verified 09/08/18 12:00) Hospital Summary - Hospital Course Hospital Course: Ms. 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 She presented on 11/01/24 with progressive shortness of breath that worsened acutely on the day of presentation, at which time her PCP recorded a room air oxygen saturation of 80%. She also endorsed productive cough with yellow-brown sputum and wheezing. She denied fever, chest pain, gastrointestinal or neurological symptoms, or sick contacts. On arrival to the ED, she was hypoxic (SpO2 85% RA), tachycardic, and tachypneic. Her saturation improved to 94% on 2 L oxygen. EKG demonstrated sinus rhythm without ischemic changes. Initial labs were notable for creatinine 1.87 mg/dL (baseline 1.38), AST 44 / ALT 37 U/L, negative troponin, and negative respiratory viral panel. Venous blood gas showed pH 7.43, PO2 43 mmHg, HCO? 33.2 mmol/L, O2 saturation 77.6%, and base excess +7.5, consistent with compensated metabolic alkalosis with hypoxemia. Chest X-ray revealed bilateral interstitial-alveolar opacities concerning for pneumonia, large hiatal hernia with intrathoracic stomach limiting lung expansion, but no kelly consolidation or effusion. She was initiated on DuoNebs, ceftriaxone, and azithromycin in the ED and admitted for further management. During hospitalization, she received antibiotics, steroids, nebulizer therapy, and supplemental oxygen. Creatinine improved to 1.29 mg/dL, returning to baseline with gentle IV hydration. By 11/02, she reported significant improvement in dyspnea, and by 11/03 she was stable at her baseline oxygen requirement of 3 L via CPAP at night and daytime supplementation as needed. She remained clinically stable for discharge. - Vitals & Intake/Output Vital Signs: Vital Signs Temperature 98.6 F 11/03/24 11:00 Pulse Rate 77 11/03/24 11:00 Respiratory Rate 18 11/03/24 11:00 Blood Pressure 107/55 11/03/24 11:00 O2 Sat by Pulse Oximetry 98 11/03/24 11:00 Intake & Output: Intake & Output 11/01/24 11/02/24 11/03/24 11/04/24 11:59 11:59 11:59 11:59 Intake Total 340 3715 Output Total 400 Balance 340 3315 Weight 121.2 kg - Lab Result Diagrams: 11/03/24 04:37 11/03/24 04:37 Lab Results-Last 24 Hrs: Lab Results-Last 24 Hours 11/03/24 11/03/24 Range/Units 04:37 04:37 WBC 9.3 (3.98-10.04) x10^3/uL RBC 3.25 L (3.93-5.22) x10^6/uL Hgb 10.3 L (11.2-15.7) g/dL Hct 32.5 L (34.1-44.9) % MCV 100.0 H (79.4-94.8) fL MCH 31.7 (25.6-32.2) pg MCHC 31.7 L (32.2-35.5) g/dL RDW 12.6 (11.7-14.4) % Plt Count 208 (182-369) x10^3/uL MPV 9.7 (9.4-12.3) fL Gran % 87.3 H (34.0-71.1) % Immature Gran % (Auto) 0.6 H (0.001-0.429) % Nucleat RBC Rel Count 0.0 (0.00-0.2) % Eos # (Auto) 0 L (0.04-0.36) x10^3/uL Immature Gran # (Auto) 0.06 H (0.001-0.031) x10^3u/L Absolute Lymphs (auto) 0.82 L (1.18-3.74) x10^3/uL Absolute Monos (auto) 0.28 (0.24-0.86) x10^3/uL Absolute Nucleated RBC 0.00 (0.00-0.012) x10^3u/L Lymphocytes % 8.9 L (19.3-51.7) % Monocytes % 3.0 L (4.7-12.5) % Eosinophils % 0.0 L (0.7-5.8) % Basophils % 0.2 (0.1-1.2) % Absolute Granulocytes 8.08 H (1.56-6.13) x10^3/uL Basophils # 0.02 (0.01-0.08) x10^3/uL Sodium 137 (135-145) mmol/L Potassium 4.5 (3.5-5.1) mmol/L Chloride 102 (98-107) mmol/L Carbon Dioxide 27 (22-30) mmol/L Anion Gap 13.1 (5-15) MEQ/L BUN 25 H (7-17) mg/dL Creatinine 1.29 H (0.52-1.04) mg/dL Estimated GFR 41.4 ML/MIN Glucose 159 H (74-106) mg/dL Calcium 10.2 (8.4-10.2) mg/dL Total Bilirubin < 0.10 L (0.2-1.3) mg/dL AST 32 (14-36) U/L ALT 33 (0-35) U/L Alkaline Phosphatase 61 (38-126) U/L Serum Total Protein 6.3 (6.3-8.2) g/dL Albumin 3.8 (3.5-5.0) g/dL Micro Results-Entire Visit: Microbiology 11/01/24 13:50 Blood Culture - Preliminary Blood 11/01/24 13:35 Blood Culture - Preliminary Blood - Radiology Exams Ordered Rad Exams-Entire Visit: Radiology Procedures Category Date Time Status CHEST 1 VIEW (PORTABLE) Stat Exams 11/01/24 13:13 Completed - Procedures and Test Procedures and Tests throughout Hospitalization: Therapy Orders & Screens 11/01/24 14:11 Respiratory Therapy Assessment DAILY Comment: 11/01/24 16:47 EKG REPEAT IN AM Comment: Oxygen Nasal Cannula 3.5 lpm Comment: Respiratory Therapy Consult ONCE Comment: Reason For Exam: 11/01/24 17:11 Respiratory MDI UD Comment: 11/01/24 17:12 BiPap/CPAP ROUTINE Comment: Respiratory Therapy Assessment DAILY Comment: 11/01/24 17:33 Incentive Spirometry UD Comment: Diagnosis: pneumonia copd exac 11/03/24 07:43 Qualify for Home Oxygen TODAY Comment: Diagnosis: pneumonia copd exac Discharge Exam General Appearance: no apparent distress Neurologic Exam: alert, oriented x 3, cooperative Eye Exam: PERRL Ears, Nose, Throat Exam: normal ENT inspection Neck Exam: normal inspection Respiratory Exam: wheezing Cardiovascular Exam: regular rate/rhythm, normal heart sounds Gastrointestinal/Abdomen Exam: soft, normal bowel sounds Pelvic Exam: deferred Rectal Exam: deferred Back Exam: normal inspection Extremity Exam: normal inspection Skin Exam: normal color Final Diagnosis/Problem List - Final Discharge Diagnosis/Problem (1) Acute respiratory failure with hypoxia Current Visit: Yes Status: Acute Assessment & Plan: Secondary to community-acquired pneumonia in the setting of COPD exacerbation Discharge on cefuroxime 500 mg BID x 7 days Prednisone 20 mg PO BID x 5 days Continue DuoNebs (scheduled and PRN) Continue home inhalers as prescribed CPAP with 3 L O2 nightly; supplemental O2 PRN to maintain SpO2 >90% Flutter valve and incentive spirometer for pulmonary hygiene Outpatient follow-up with PCP within 1 week Repeat imaging or evaluation if symptoms worsen Code(s): J96.01 - ACUTE RESPIRATORY FAILURE WITH HYPOXIA (2) MALIK (acute kidney injury) Current Visit: Yes Status: Acute Assessment & Plan: Likely prerenal from hypovolemia/illness; resolved with hydration Monitor renal function as outpatient Encourage adequate hydration Avoid nephrotoxic medications Adjust medications for renal dosing if needed Code(s): N17.9 - ACUTE KIDNEY FAILURE, UNSPECIFIED (3) Pneumonia Current Visit: Yes Status: Acute Assessment & Plan: Continue cefuroxime as above Close monitoring for worsening symptoms Outpatient chest X-ray in 68 weeks to ensure resolution Code(s): J18.9 - PNEUMONIA, UNSPECIFIED ORGANISM (4) COPD exacerbation Current Visit: Yes Status: Acute Assessment & Plan: see above Code(s): J44.1 - CHRONIC OBSTRUCTIVE PULMONARY DISEASE W (ACUTE) EXACERBATION (5) Hypothyroid Current Visit: Yes Status: Acute Code(s): E03.9 - HYPOTHYROIDISM, UNSPECIFIED (6) History of pulmonary embolism Current Visit: Yes Status: Acute Code(s): Z86.711 - PERSONAL HISTORY OF PULMONARY EMBOLISM (7) History of DVT (deep vein thrombosis) Current Visit: Yes Status: Acute Code(s): Z86.718 - PERSONAL HISTORY OF OTHER VENOUS THROMBOSIS AND EMBOLISM (8) CAD (coronary artery disease) Current Visit: Yes Status: Acute Code(s): I25.10 - ATHSCL HEART DISEASE OF [place] CORONARY ARTERY W/O ANG PCTRS (9) HLD (hyperlipidemia) Current Visit: Yes Status: Acute Code(s): E78.5 - HYPERLIPIDEMIA, UNSPECIFIED (10) History of breast cancer Current Visit: Yes Status: Acute Code(s): Z85.3 - PERSONAL HISTORY OF MALIGNANT NEOPLASM OF BREAST - Discharge Discharge Date: 11/03/24 Disposition: Home, Self-Care Condition: Stable Prescriptions: New cefuroxime axetiL [Cefuroxime] 500 mg PO BID 7 Days #14 tablet Prednisone 20 mg [Deltasone 20 mg] 20 mg PO BID 5 Days #10 tablet Continue Levothyroxine Sodium 112 Mcg [Synthroid 112 Mcg] 112 mcg PO DAILY Amlodipine Besylate 5 mg [Norvasc 5 mg] 5 mg PO DAILY Torsemide 20 mg [Demadex 20 mg] 20 mg PO DAILY Allopurinol 300 mg [Zyloprim 300 mg] 300 mg PO DAILY Vilazodone HCl 20 mg PO DAILY Tramadol HCl 50 mg [Ultram 50 mg] 50 mg PO HS Tramadol HCl 25 mg PO DAILY Spironolactone 25 mg PO DAILY Simvastatin 40 mg PO HS Rivaroxaban [Xarelto] 20 mg PO HS Pantoprazole Sodium [Protonix] 40 mg PO DAILY Multivit-Min/Iron/Folic/Lutein [Centrum Silver Women Tablet] 1 each PO DAILY Instructions: Pneumonia in adults - Discharge instructions Follow up with: CLAIRE MAY MD [Primary Care Provider, [facility]] Forms: Discharge Instructions
== END 2024-11-03 13:15 | disposition home or self-care (01) ==
LOC: ED 12:50 → MED SURG 16:42
PROVIDERS: ADMIT Internal Medicine; ATTEND Internal Medicine
DX: J96.01 Acute respiratory failure with hypoxia (principal); N17.9 Acute kidney failure, unspecified; J18.9 Pneumonia, unspecified organism; J44.1 Chronic obstructive pulmonary disease with (acute) exacerbation; E03.9 Hypothyroidism, unspecified; Z86.711 Personal history of pulmonary embolism; Z86.718 Personal history of other venous thrombosis and embolism; I25.10 Atherosclerotic heart disease of native coronary artery without angina pectoris; E78.5 Hyperlipidemia, unspecified; Z85.3 Personal history of malignant neoplasm of breast; Z79.01 Long term (current) use of anticoagulants; Z79.899 Other long term (current) drug therapy
CPT/HCPCS: 36415; 71045; 80053; 82805; 83605; 83735; 83880; 84484; 85025; 85379; 87040; 87637; 93005; 93041; 93268; 94640; 94660; 94760; 96365; 99291; G0378; Q3014

== ENCOUNTER 2024-11-22 16:41 | Observation (INO) | payer MEDICARE ==
--- NOTE | 2024-11-22 17:03 | ERPHSYRPT ---
- History of Present Illness Time Seen by Provider: 11/22/24 16:48 Source: patient Physician History: 10-year-old female history of DVT recent admission for bilateral pneumonia and COPD exacerbation presents for 5 days of recurrent cough with productive phlegm. She states that she felt well after the steroid and antibiotic treatment. She reports 5 days ago she started coughing up yellow to brown phlegm. Denies chest pain. Denies fever. Reports cough is thick and productive. States that she is short of breath with activity and wheezing. Reports her breathing feels worse than her last admission. Allergies/Adverse Reactions: No Known Drug Allergies Allergy (Verified 09/08/18 12:00) Home Medications: Allopurinol 300 mg [Zyloprim 300 mg] 300 mg PO DAILY 11/01/24 [History] Amlodipine Besylate 5 mg [Norvasc 5 mg] 5 mg PO DAILY 11/01/24 [History] Levothyroxine Sodium 112 Mcg [Synthroid 112 Mcg] 112 mcg PO DAILY 11/01/24 [History] Multivit-Min/Iron/Folic/Lutein [Centrum Silver Women Tablet] 1 each PO DAILY 11/01/24 [History] Pantoprazole Sodium [Protonix] 40 mg PO DAILY 11/01/24 [History] Rivaroxaban [Xarelto] 20 mg PO HS 11/01/24 [History] Simvastatin 40 mg PO HS 11/01/24 [History] Spironolactone 25 mg PO DAILY 11/01/24 [History] Torsemide 20 mg [Demadex 20 mg] 20 mg PO DAILY 11/01/24 [History] Tramadol HCl 25 mg PO DAILY 11/01/24 [History] Tramadol HCl 50 mg [Ultram 50 mg] 50 mg PO HS 11/01/24 [History] Vilazodone HCl 20 mg PO DAILY 11/01/24 [History] Hx Tetanus, Diphtheria Vaccination/Date Given: Yes Hx Influenza Vaccination/Date Given: Yes Hx Pneumococcal Vaccination/Date Given: Yes Travel Risk - Emerging Infectious Disease Are you exhibiting symptoms associated with any current EIDs: Yes Symptoms: Cough: New Onset, Shortness of Breath - Review of Systems Constitutional: No Fever, No Chills Eyes: No Symptoms Ears, Nose, & Throat: No Symptoms Respiratory: Cough, Wheezing, No Dyspnea Cardiac: No Chest Pain, No Edema, No Syncope Abdominal/Gastrointestinal: No Abdominal Pain, No Nausea, No Vomiting, No Diarrhea Genitourinary Symptoms: No Dysuria Musculoskeletal: No Back Pain, No Neck Pain Skin: No Rash Neurological: No Dizziness, No Focal Weakness, No Sensory Changes Psychological: No Symptoms Endocrine: No Symptoms All Other Systems: Reviewed and Negative - Past Medical History Pertinent Past Medical History: Yes Neurological History: No Pertinent History ENT History: No Pertinent History Cardiac History: Coronary Artery Disease, Deep Vein Thrombosis Respiratory History: Asthma, COPD, Sleep Apnea, Other Endocrine Medical History: No Pertinent History Musculoskeletal History: No Pertinent History GI Medical History: GERD History: No Pertinent History Psycho-Social History: Depression Female Reproductive Disorders: Breast Cancer - Past Surgical History Past Surgical History: Yes Neuro Surgical History: No Pertinent History Cardiac: No Pertinent History Respiratory: No Pertinent History Gastrointestinal: No Pertinent History Genitourinary: No Pertinent History Musculoskeletal: Orthopedic Surgery Female Surgical History: Hysterectomy Other Surgical History: Patient states. 2 knee replacements and veins stripped in legs - Social History Smoking Status: Former smoker Exposure to second hand smoke: No Drug Use: none - Social Determinants of Health Will the patient participate in the screening: Declined to provide - Nursing Vital Signs Nursing Vital Signs: Initial Vital Signs Temperature 97.6 F 11/22/24 16:42 Pulse Rate 72 11/22/24 16:42 Respiratory Rate 23 11/22/24 16:42 Blood Pressure 145/63 11/22/24 16:42 O2 Sat by Pulse Oximetry 94 L 11/22/24 16:42 Pain Scale Pain Intensity 0 - Physical Exam General Appearance: alert, other (Slightly tachypneic at rest, mild retractions, bilateral wheezing) Neck Exam: normal inspection Respiratory Exam: other (Bilateral wheezing, mild retraction, minimally labored) Cardiovascular Exam: regular rate/rhythm, normal heart sounds Gastrointestinal/Abdomen Exam: soft, No tenderness Extremity Exam: normal inspection Neurologic Exam: alert, oriented x 3 Skin Exam: normal color SpO2 Interpretation: normal O2 Delivery: Room Air Ordered Tests: Active Orders 24 hr Category Date Time Status Bisque Grader STAT Care 11/22/24 16:52 Active EKG-ER Only STAT Care 11/22/24 16:51 Active CHEST 1 VIEW (PORTABLE) Stat Exams 11/22/24 16:52 Taken BLOOD CULTURE Stat Lab 11/22/24 17:21 Received BMP Stat Lab 11/22/24 17:28 Completed CBC W DIFF Stat Lab 11/22/24 17:28 Completed Lactic Acid Stat Lab 11/22/24 16:51 Completed NT PRO BNPII Stat Lab 11/22/24 17:28 Completed TROPONIN Q4H Lab 11/22/24 17:28 Completed TROPONIN Q4H Lab 11/22/24 21:00 Ordered TROPONIN Q4H Lab 11/23/24 01:00 Ordered Respiratory Therapy Assessment DAILY RT 11/22/24 17:09 Active Transfer Order Routine Transfer 11/22/24 Ordered Medication Summary Discontinued Medications Generic Name Dose Route Start Last Admin Trade Name Freq PRN Reason Stop Dose Admin Albuterol/Ipratropium 6 ml 11/22/24 16:58 11/22/24 17:05 Ipratropium/Albuterol Sulfate 3 Ml Ampul.Neb IH 11/22/24 16:59 6 ml STAT ONE Administration Albuterol/Ipratropium Confirm 11/22/24 17:04 Ipratropium/Albuterol Sulfate 3 Ml Ampul.Neb Administered 11/22/24 17:05 Dose 3 ml IH .STK-MED ONE Albuterol/Ipratropium Confirm 11/22/24 17:06 Ipratropium/Albuterol Sulfate 3 Ml Ampul.Neb Administered 11/22/24 17:07 Dose 3 ml IH .STK-MED ONE Methylprednisolone Sodium 0 mg 11/22/24 16:58 11/22/24 17:15 Succinate 125 mg/ Sterile IV 11/22/24 16:59 125 mg Water 2 ml STAT ONE Administration Methylprednisolone Sodium Succinate Confirm 11/22/24 17:11 Methylprednis Sod Succ 125 Mg/2 Ml Vial Administered 11/22/24 17:12 Dose 125 mg .ROUTE .STK-MED ONE Sterile Water Confirm 11/22/24 17:10 Water For Injection,Sterile 10 Ml Vial Administered 11/22/24 17:11 Dose 10 ml IJ .STK-MED ONE Lab/Rad Data: Laboratory Result Diagrams 11/22/24 17:28 11/22/24 17:28 Laboratory Results 11/22/24 11/22/24 11/22/24 Range/Units 17:28 17:28 17:28 WBC 7.6 (3.98-10.04) x10^3/uL RBC 3.65 L (3.93-5.22) x10^6/uL Hgb 11.5 (11.2-15.7) g/dL Hct 36.6 (34.1-44.9) % MCV 100.3 H (79.4-94.8) fL MCH 31.5 (25.6-32.2) pg MCHC 31.4 L (32.2-35.5) g/dL RDW 13.0 (11.7-14.4) % Plt Count 206 (182-369) x10^3/uL MPV 9.3 L (9.4-12.3) fL Gran % 57.8 (34.0-71.1) % Immature Gran % (Auto) 0.3 (0.001-0.429) % Nucleat RBC Rel Count 0.0 (0.00-0.2) % Eos # (Auto) 1.08 H (0.04-0.36) x10^3/uL Immature Gran # (Auto) 0.02 (0.001-0.031) x10^3u/L Absolute Lymphs (auto) 1.43 (1.18-3.74) x10^3/uL Absolute Monos (auto) 0.59 (0.24-0.86) x10^3/uL Absolute Nucleated RBC 0.00 (0.00-0.012) x10^3u/L Lymphocytes % 18.8 L (19.3-51.7) % Monocytes % 7.8 (4.7-12.5) % Eosinophils % 14.2 H (0.7-5.8) % Basophils % 1.1 (0.1-1.2) % Absolute Granulocytes 4.41 (1.56-6.13) x10^3/uL Basophils # 0.08 (0.01-0.08) x10^3/uL Sodium 139 (135-145) mmol/L Potassium 4.3 (3.5-5.1) mmol/L Chloride 101 (98-107) mmol/L Carbon Dioxide 32 H (22-30) mmol/L Anion Gap 10.3 (5-15) MEQ/L BUN 21 H (7-17) mg/dL Creatinine 2.11 H (0.52-1.04) mg/dL Estimated GFR 23.0 ML/MIN Glucose 94 (74-106) mg/dL Lactic Acid (0.4-2.0) Calcium 10.6 H (8.4-10.2) mg/dL Troponin I < 0.012 (0.000-0.033) ng/mL NT-Pro-B Natriuret Pep 276 (<300) pg/mL 11/22/24 Range/Units 16:51 WBC (3.98-10.04) x10^3/uL RBC (3.93-5.22) x10^6/uL Hgb (11.2-15.7) g/dL Hct (34.1-44.9) % MCV (79.4-94.8) fL MCH (25.6-32.2) pg MCHC (32.2-35.5) g/dL RDW (11.7-14.4) % Plt Count (182-369) x10^3/uL MPV (9.4-12.3) fL Gran % (34.0-71.1) % Immature Gran % (Auto) (0.001-0.429) % Nucleat RBC Rel Count (0.00-0.2) % Eos # (Auto) (0.04-0.36) x10^3/uL Immature Gran # (Auto) (0.001-0.031) x10^3u/L Absolute Lymphs (auto) (1.18-3.74) x10^3/uL Absolute Monos (auto) (0.24-0.86) x10^3/uL Absolute Nucleated RBC (0.00-0.012) x10^3u/L Lymphocytes % (19.3-51.7) % Monocytes % (4.7-12.5) % Eosinophils % (0.7-5.8) % Basophils % (0.1-1.2) % Absolute Granulocytes (1.56-6.13) x10^3/uL Basophils # (0.01-0.08) x10^3/uL Sodium (135-145) mmol/L Potassium (3.5-5.1) mmol/L Chloride (98-107) mmol/L Carbon Dioxide (22-30) mmol/L Anion Gap (5-15) MEQ/L BUN (7-17) mg/dL Creatinine (0.52-1.04) mg/dL Estimated GFR ML/MIN Glucose (74-106) mg/dL Lactic Acid 1.2 (0.4-2.0) Calcium (8.4-10.2) mg/dL Troponin I (0.000-0.033) ng/mL NT-Pro-B Natriuret Pep (<300) pg/mL - Progress Progress: improved Progress Note: 11/22/24 17:02 EKG independently reviewed sinus rhythm no ST or T wave abnormality rate 76 Patient with wheezing on exam increased productive cough after recent admission. Symptomatic at rest. DuoNebs and IV steroids ordered. EKG chest x-ray cardiac markers electrolytes. 11/22/24 18:54 The patient. Her respiratory rate and work of breathing is improved but she still has wheezing and some mild tachypnea at rest. She has bilateral infiltrates. I am not sure the etiology of these. She also has worsening renal function with a creatinine is bumped to 2.1. Discussed the case with the hospitalist will be admitted by Dr. Pagan for further management Discussed with Dr.: Leonel Will see patient in: hospital (observation), hospital (full admit) - Departure Departure Disposition: Observation Clinical Impression: Acute kidney injury, COPD with exacerbation, Pulmonary infiltrate on chest x- ray Condition: Stable Critical Care Time: No Referrals: CLAIRE MAY MD [Primary Care Provider, [facility]] - Follow up/PCP as directed Instructions: Chronic Obstructive Pulmonary Disease
[2024-11-22] MEDS ORDERED: DUONEB 0.5-3 MG/3 ml Neb IH ONE ×2 (17:04→17:06)
[2024-11-22] MEDS: DUONEB 0.5-3 MG/3 ml Neb IH ONE (17:05)
[2024-11-22] MEDS ORDERED: Sterile H2O 10 ml IJ ONE ×2 (17:10→22:26)
[2024-11-22] MEDS: solu-MEDROL 125 MG, Sterile H2O 10 ml 2 ML IV ONE (17:15)
[2024-11-22 18:06] LABS: NT PRO BNPII 276 pg/mL (<300); TROPONIN < 0.012 ng/mL (0.000-0.033)
[2024-11-22 18:07] LABS: BASOPHIL % 1.1 % (0.1-1.2); Basophil (Absolute #) 0.08 x10^3/uL (0.01-0.08); Eosinophil (Absolute #) 1.08 x10^3/uL (0.04-0.36); Hematocrit 36.6 % (34.1-44.9); Hemoglobin 11.5 g/dL (11.2-15.7); IMMATURE GRAN # 0.02 x10^3u/L (0.001-0.031); IMMATURE GRAN % 0.3 % (0.001-0.429); Lymphocyte (Absolute #) 1.43 x10^3/uL (1.18-3.74); Mean Corpuscular Hemoglobin 31.5 pg (25.6-32.2); Mean Corpuscular Hgb Concent. 31.4 g/dL (32.2-35.5); Monocyte (Absolute #) 0.59 x10^3/uL (0.24-0.86); NUCLEATED RBC # 0.00 x10^3u/L (0.00-0.012); NUCLEATED RBC % 0.0 % (0.00-0.2); Platelet Count 206 x10^3/uL (182-369); Red Blood Count 3.65 x10^6/uL (3.93-5.22); White Blood Count 7.6 x10^3/uL (3.98-10.04)
[2024-11-22 18:16] LABS: Calcium 10.6 mg/dL (8.4-10.2); Carbon Dioxide 32.0 mmol/L (22-30); Creatinine 1 2.11 mg/dL (0.52-1.04); EST GLOMERULAR FILTRATION RATE 23.0 ML/MIN; Glucose 94.0 mg/dL (74-106); Potassium 4.3 mmol/L (3.5-5.1)
[2024-11-22] MEDS ORDERED: PHARMACY RENAL DOSING MC ONE (20:22)
[2024-11-22] MEDS ORDERED: Zofran 4 MG/2 ML VIAL IV PRN (20:24)
[2024-11-22] MEDS ORDERED: PROVENTIL 2.5 MG/3 ML NEB IH PRN (20:29)
--- NOTE | 2024-11-22 20:43 | PCM.HP ---
History of Present Illness - Chief Complaint Chief Complaint: dyspnea Date: 11/22/24 History of Present Illness: is a 84 year old female with a history of DVT, mild CKD, COPD, HTN, and a recent admission for bilateral pneumonia and COPD exacerbation, who prese nted to the ED for 5 days of recurrent cough with productive phlegm. She states that she felt well after the steroid and antibiotic treatment, but then 5 days ago she started coughing up yellow to brown phlegm. Denies chest pain and fever. She has been short of breath with activity with wheezing. In fact, she reports that her breathing feels worse than her last admission. The patient's granddaughter is at bedside during my assessment. - Review of Systems Constitutional: No Symptoms Eyes: No Symptoms Ears, Nose, & Throat: No Symptoms Respiratory: Cough, Short Of Breath, Wheezing, No Orthopnea, No Stridor Cardiac: No Symptoms Abdominal/Gastrointestinal: No Symptoms Genitourinary Symptoms: No Symptoms Musculoskeletal: No Symptoms Skin: No Symptoms Neurological: No Symptoms Psychological: No Symptoms Endocrine: No Symptoms Hematologic/Lymphatic: No Symptoms Immunological/Allergic: No Symptoms All Other Systems: Reviewed and Negative Medications & Allergies Home Medications: Home Medication List Allopurinol 300 mg [Zyloprim 300 mg] 300 mg PO DAILY 11/01/24 [History Confirmed 11/22/24] Amlodipine Besylate 5 mg [Norvasc 5 mg] 5 mg PO DAILY 11/01/24 [History Confirmed 11/22/24] Levothyroxine Sodium 112 Mcg [Synthroid 112 Mcg] 112 mcg PO DAILY 11/01/24 [History Confirmed 11/22/24] Multivit-Min/Iron/Folic/Lutein [Centrum Silver Women Tablet] 1 each PO DAILY 11/01/24 [History Confirmed 11/22/24] Pantoprazole Sodium [Protonix] 40 mg PO DAILY 11/01/24 [History Confirmed 11/22/24] Rivaroxaban [Xarelto] 20 mg PO HS 11/01/24 [History Confirmed 11/22/24] Simvastatin 40 mg PO HS 11/01/24 [History Confirmed 11/22/24] Spironolactone 25 mg PO DAILY 11/01/24 [History Confirmed 11/22/24] Torsemide 20 mg [Demadex 20 mg] 20 mg PO DAILY 11/01/24 [History Confirmed 11/22/24] Tramadol HCl 25 mg PO DAILY 11/01/24 [History Confirmed 11/22/24] Tramadol HCl 50 mg [Ultram 50 mg] 50 mg PO HS 11/01/24 [History Confirmed 11/22/24] Vilazodone HCl 20 mg PO DAILY 11/01/24 [History Confirmed 11/22/24] Prednisone 20 mg [Deltasone 20 mg] 20 mg PO BID 5 Days #10 tablet 11/03/24 [Rx Confirmed 11/22/24] Allergies/Adverse Reactions: Allergies Allergy/AdvReac Type Severity Reaction Status Date / Time No Known Drug Allergies Allergy Verified 09/08/18 12:00 - Past Medical History Past Medical History: Yes Neurological History: No Pertinent History ENT History: No Pertinent History Cardiac History: Coronary Artery Disease, Deep Vein Thrombosis Respiratory History: Asthma, COPD, Sleep Apnea, Other Endocrine Medical History: No Pertinent History Musculoskelatal History: No Pertinent History GI Medical History: GERD History: No Pertinent History Pyscho-Social History: Depression Reproductive Disorders: Breast Cancer - Past Surgical History Past Surgical History: Yes Neuro Surgical History: No Pertinent History Cardiac History: No Pertinent History Respiratory Surgery: No Pertinent History GI Surgical History: No Pertinent History Genitourinary Surgical Hx: No Pertinent History Musculskeletal Surgical Hx: Orthopedic Surgery Female Surgical History: Hysterectomy Other Surgical History: Patient states. 2 knee replacements and veins stripped in legs Significant Family History: no pertinent family hx - Social History Smoking Status: Former smoker Exposure to second hand smoke: No Alcohol: None Drug Use: none - Social Determinants of Health Will the patient participate in the screening: Declined to provide - Physical Exam Vital Signs: Vital Signs - 24 hr Temp Pulse Resp BP BP Pulse Ox 11/22/24 19:32 90 155/90 93 L 11/22/24 19:00 98 H 19 107/56 93 L 11/22/24 18:30 76 18 106/65 93 L 11/22/24 18:01 87 18 126/79 92 L 11/22/24 18:00 94 H 22 91 L 11/22/24 17:50 78 23 94 L 11/22/24 17:40 91 H 21 09/24/25 17:32 85 19 94 L 11/22/24 17:10 72 18 93 L 11/22/24 17:00 86 19 126/74 98 11/22/24 16:52 79 22 145/63 93 L 11/22/24 16:42 97.6 F 72 21 145/63 94 L General Appearance: mild distress, alert Neurologic Exam: alert, oriented x 3, cooperative, 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 tested, normal mood/affect, nml cerebellar function, sensation nml, No motor deficits, No sensory deficit Eye Exam: PERRL/EOMI, eyes nml inspection, No scleral icterus, No pale conjun ctivae, No photophobia Ears, Nose, Throat Exam: normal ENT inspection Neck Exam: normal inspection, non-tender, supple, full range of motion, No menin gismus Respiratory Exam: respiratory distress, airway intact, diminished breath sounds, accessory muscle use (patient had just ambulated to the restroom prior to my evaluation.), prolonged expirations, wheezing, No chest tenderness Cardiovascular Exam: regular rate/rhythm, normal heart sounds, No murmur, No friction rub, No gallop Gastrointestinal/Abdomen Exam: soft, normal bowel sounds, No tenderness, No distention, No mass, No guarding Back Exam: normal range of motion Extremity Exam: normal range of motion, pedal edema (trace bilateral ankle edema (nonpitting)), No rodas, No contusions, No calf tenderness, No deformities, No lacerations Skin Exam: normal color, No rash, No petechiae, No jaundice, No abrasion Results - Labs Lab/Micro Results: Lab Results-Last 24 Hours 11/22/24 11/22/24 11/22/24 Range/Units 16:51 17:28 17:28 WBC 7.6 (3.98-10.04) x10^3/uL RBC 3.65 L (3.93-5.22) x10^6/uL Hgb 11.5 (11.2-15.7) g/dL Hct 36.6 (34.1-44.9) % MCV 100.3 H (79.4-94.8) fL MCH 31.5 (25.6-32.2) pg MCHC 31.4 L (32.2-35.5) g/dL RDW 13.0 (11.7-14.4) % Plt Count 206 (182-369) x10^3/uL MPV 9.3 L (9.4-12.3) fL Gran % 57.8 (34.0-71.1) % Immature Gran % (Auto) 0.3 (0.001-0.429) % Nucleat RBC Rel Count 0.0 (0.00-0.2) % Eos # (Auto) 1.08 H (0.04-0.36) x10^3/uL Immature Gran # (Auto) 0.02 (0.001-0.031) x10^3u/L Absolute Lymphs (auto) 1.43 (1.18-3.74) x10^3/uL Absolute Monos (auto) 0.59 (0.24-0.86) x10^3/uL Absolute Nucleated RBC 0.00 (0.00-0.012) x10^3u/L Lymphocytes % 18.8 L (19.3-51.7) % Monocytes % 7.8 (4.7-12.5) % Eosinophils % 14.2 H (0.7-5.8) % Basophils % 1.1 (0.1-1.2) % Absolute Granulocytes 4.41 (1.56-6.13) x10^3/uL Basophils # 0.08 (0.01-0.08) x10^3/uL Sodium 139 (135-145) mmol/L Potassium 4.3 (3.5-5.1) mmol/L Chloride 101 (98-107) mmol/L Carbon Dioxide 32 H (22-30) mmol/L Anion Gap 10.3 (5-15) MEQ/L BUN 21 H (7-17) mg/dL Creatinine 2.11 H (0.52-1.04) mg/dL Estimated GFR 23.0 ML/MIN Glucose 94 (74-106) mg/dL Lactic Acid 1.2 (0.4-2.0) Calcium 10.6 H (8.4-10.2) mg/dL Troponin I (0.000-0.033) ng/mL NT-Pro-B Natriuret Pep (<300) pg/mL 11/22/ Range/Units 17:28 WBC (3.98-10.04) x10^3/uL RBC (3.93-5.22) x10^6/uL Hgb (11.2-15.7) g/dL Hct (34.1-44.9) % MCV (79.4-94.8) fL MCH (25.6-32.2) pg MCHC (32.2-35.5) g/dL RDW (11.7-14.4) % Plt Count (182-369) x10^3/uL MPV (9.4-12.3) fL Gran % (34.0-71.1) % Immature Gran % (Auto) (0.001-0.429) % Nucleat RBC Rel Count (0.00-0.2) % Eos # (Auto) (0.04-0.36) x10^3/uL Immature Gran # (Auto) (0.001-0.031) x10^3u/L Absolute Lymphs (auto) (1.18-3.74) x10^3/uL Absolute Monos (auto) (0.24-0.86) x10^3/uL Absolute Nucleated RBC (0.00-0.012) x10^3u/L Lymphocytes % (19.3-51.7) % Monocytes % (4.7-12.5) % Eosinophils % (0.7-5.8) % Basophils % (0.1-1.2) % Absolute Granulocytes (1.56-6.13) x10^3/uL Basophils # (0.01-0.08) x10^3/uL Sodium (135-145) mmol/L Potassium (3.5-5.1) mmol/L Chloride (98-107) mmol/L Carbon Dioxide (22-30) mmol/L Anion Gap (5-15) MEQ/L BUN (7-17) mg/dL Creatinine (0.52-1.04) mg/dL Estimated GFR ML/MIN Glucose (74-106) mg/dL Lactic Acid (0.4-2.0) Calcium (8.4-10.2) mg/dL Troponin I < 0.012 (0.000-0.033) ng/mL NT-Pro-B Natriuret Pep 276 (<300) pg/mL - Radiology Impressions Radiology Exams & Impressions: Radiology Procedures Category Date Time Status CHEST 1 VIEW (PORTABLE) Stat Exams 11/22/24 16:52 Taken - Other Procedures and Tests Respiratory Therapy 11/22/24 17:09 Respiratory Therapy Assessment DAILY 11/22/24 20:19 BiPap/CPAP ROUTINE Oxygen Nasal Cannula 3 lpm 11/22/24 20:31 Respiratory Therapy Consult ONCE Assessment/Plan (1) COPD exacerbation Current Visit: No Status: Acute Assessment & Plan: IV steroids, nebs, wean O2 as tolerated. May need to contact Dr. Lr's office for recommendations (may need longer steroid taper at discharge). Code(s): J44.1 - CHRONIC OBSTRUCTIVE PULMONARY DISEASE W (ACUTE) EXACERBATION (2) Hypoxia Current Visit: No Status: Acute Assessment & Plan: PT eval for ambulatory O2 assessment. Code(s): R09.02 - HYPOXEMIA (3) Bilateral pneumonia Current Visit: No Status: Acute Assessment & Plan: Unclear if infiltrates are simply unresolved from recent pneumonia, but clinically the infection is persistent due to the mucopurulent productive cough. Will placed on IV Zosyn for now. Mucinex. Request sputum collection. Code(s): J18.9 - PNEUMONIA, UNSPECIFIED ORGANISM (4) MALIK (acute kidney injury) Current Visit: Yes Status: Acute Assessment & Plan: Hold diuretics and will administer gentle IV fluids and monitor. 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 Code(s): N17.9 - ACUTE KIDNEY FAILURE, UNSPECIFIED Telemedicine Encounter - Telemedicine Encounter Telemedicine Encounter: "The entirety of this encounter was performed via Telemedicine" This visit was performed using real-time audio and video connection between my location and thepatients locationwith the assistance of a surrogateat the patients location. Written or verbal consent was obtained from the patient/guardian to perform this visit [email or web address] technology. Any patient questions regarding the telemedicine interaction were answered. Please note that this admission required 49 minutes to complete.
[2024-11-22] MEDS: DUONEB 0.5-3 MG/3 ml Neb IH SCH (22:23)
[2024-11-22] MEDS ORDERED: XARELTO 10 MG TABLET ONE (22:26)
[2024-11-22] MEDS ORDERED: ZOCOR 20MG ONE (22:26)
[2024-11-22] MEDS: solu-MEDROL 40 MG, Sterile H2O 10 ml 1 ML IV SCH (22:35)
[2024-11-22] MEDS: XARELTO 10 MG TABLET PO SCH (22:35)
[2024-11-22] MEDS: MELATONIN PO PRN (22:36)
[2024-11-22] MEDS: ZOCOR 20MG PO SCH (22:36)
[2024-11-22] MEDS: ULTRAM 50 MG PO SCH (22:37)
[2024-11-22] MEDS: Mucinex 600MG ER Tabs PO SCH (22:37)
[2024-11-22] MEDS ORDERED: PIPERACILLIN/TAZOBACTAM IV ONE (22:47)
[2024-11-23 01:42] LABS: BASOPHIL % 0.3 % (0.1-1.2); Basophil (Absolute #) 0.02 x10^3/uL (0.01-0.08); Eosinophil (Absolute #) 0.01 x10^3/uL (0.04-0.36); Hematocrit 33.5 % (34.1-44.9); Hemoglobin 10.8 g/dL (11.2-15.7); IMMATURE GRAN # 0.03 x10^3u/L (0.001-0.031); IMMATURE GRAN % 0.5 % (0.001-0.429); Lymphocyte (Absolute #) 0.50 x10^3/uL (1.18-3.74); Mean Corpuscular Hemoglobin 31.5 pg (25.6-32.2); Mean Corpuscular Hgb Concent. 32.2 g/dL (32.2-35.5); Monocyte (Absolute #) 0.04 x10^3/uL (0.24-0.86); NUCLEATED RBC # 0.00 x10^3u/L (0.00-0.012); NUCLEATED RBC % 0.0 % (0.00-0.2); Platelet Count 178 x10^3/uL (182-369); Red Blood Count 3.43 x10^6/uL (3.93-5.22); White Blood Count 6.3 x10^3/uL (3.98-10.04)
[2024-11-23 02:05] LABS: Calcium 10.3 mg/dL (8.4-10.2); Carbon Dioxide 29.0 mmol/L (22-30); Creatinine 1 2.06 mg/dL (0.52-1.04); EST GLOMERULAR FILTRATION RATE 23.6 ML/MIN; Glucose 213.0 mg/dL (74-106); Potassium 4.2 mmol/L (3.5-5.1)
[2024-11-23 03:08] LABS: Slide Review 1 YES
[2024-11-23] MEDS ORDERED: PIPERACILLIN/TAZOBACTAM IV ONE (05:17)
[2024-11-23] MEDS ORDERED: Sterile H2O 10 ml IJ ONE (05:17)
[2024-11-23] MEDS ORDERED: MEDICATION INTERVENTION MC SCH (07:30)
[2024-11-23] MEDS: NON-FORMULARY ITEM (Simvastatin [Simvastatin] 40 MG Tablet) PO SCH (07:39)
[2024-11-23] MEDS: NON-FORMULARY ITEM (Rivaroxaban [Xarelto] 20 MG Tablet) PO SCH (07:39)
--- NOTE | 2024-11-23 08:43 | XRAY ---
Indication: Dyspnea. Comparison: November 01, 2024 Portable chest unchanged again demonstrating bilateral lower lung interstitial alveolar opacities again without consolidation/large effusion. Heart not enlarged again with large hiatal hernia and intrathoracic stomach. No new cardiopulmonary abnormalities.
[2024-11-23] MEDS ORDERED: HUMALOG SQ PRN (09:48)
--- NOTE | 2024-11-23 09:58 | PCM.NOTE ---
Date and Time: 11/23/24 0945 Subjective Assessment: is a 84-year-old female with a past medical history of deep vein thrombosis, mild chronic kidney disease, chronic obstructive pulmonary disease, hypertension, and a recent admission for bilateral pneumonia with COPD exacerbation presented to the ED on 11/23 with a 5-day history of recurrent cough productive of yellow to brown sputum. She reported initially improving after prior steroid and antibiotic therapy but noted worsening shortness of breath with wheezing, describing her breathing as worse than during her last admission. She denied chest pain or fever. On 11/23, she reported some improvement in symptoms overall, though she continued to experience shortness of breath following meals. Sputum culture is pending. Morning glucose was elevated, and hemoglobin A1C was 5.72, consistent with a new diagnosis of prediabetes; sliding scale Humalog with AC/HS accuchecks was initiated. Her acute kidney injury is improving, and IV fluids were increased to 75 mL/hr. She remains on IV antibiotics for COPD exacerbation with close monitoring of respiratory status. - Review of Systems Constitutional: No Fever, No Chills Eyes: No Symptoms Ears, Nose, & Throat: No Symptoms Respiratory: Cough, Short Of Breath Cardiac: No Chest Pain, No Edema, No Syncope Abdominal/Gastrointestinal: No Abdominal Pain, No Nausea, No Vomiting, No Nehal rrhea Genitourinary Symptoms: No Dysuria Musculoskeletal: No Back Pain, No Neck Pain Skin: No Rash Neurological: No Dizziness, No Focal Weakness, No Sensory Changes Psychological: No Symptoms Endocrine: No Symptoms Hematologic/Lymphatic: No Symptoms Immunological/Allergic: No Symptoms Objective Exam General Appearance: no apparent distress, alert, obese Neurologic Exam: alert, oriented x 3, cooperative, normal mood/affect, nml cerebellar function, sensation nml, No motor deficits Skin Exam: normal color, warm, dry Eye Exam: PERRL, EOMI, eyes nml inspection Ears, Nose, Throat Exam: normal ENT inspection, pharynx normal, moist mucous membranes Neck Exam: normal inspection, non-tender, supple, full range of motion Respiratory Exam: normal breath sounds, lungs clear, No respiratory distress Cardiovascular Exam: regular rate/rhythm, normal heart sounds Gastrointestinal/Abdomen Exam: soft, No tenderness, No mass Extremity Exam: normal inspection, normal range of motion Back Exam: normal inspection, normal range of motion, No CVA tenderness, No vertebral tenderness Pelvic Exam: deferred Rectal Exam: deferred Objective Data Vital Signs: Vital Signs - 24 hr Temp Pulse Resp BP BP BP Pulse Ox 11/23/24 07:18 97.6 F 86 18 142/83 93 L 11/23/24 04:00 98.1 F 87 20 112/57 96 11/22/24 23:29 96.9 F 106 H 22 114/51 97 11/22/24 22:23 90 20 92 L 11/22/24 20:49 98.3 F 102 H 20 119/55 92 L 11/22/24 20:17 98.3 F 92 H 20 119/55 119/55 99 11/22/24 19:32 90 155/90 93 L 11/22/24 19:00 98 H 19 107/56 93 L 11/22/24 18:30 76 18 106/65 93 L 11/22/24 18:01 87 18 126/79 92 L 11/22/24 18:00 94 H 22 91 L 11/22/24 17:50 78 23 94 L 11/22/24 17:40 91 H 21 11/22/24 17:32 85 19 94 L 11/22/24 17:10 72 18 93 L 11/22/24 17:00 86 19 126/74 98 11/22/24 16:52 79 22 145/63 93 L 11/22/24 16:42 97.6 F 72 21 145/63 94 L Pain Assessment - Last Documented Pain Intensity 0 Intake and Output: Intake & Output 11/20/24 11/21/24 11/22/24 11/23/24 11:59 11:59 11:59 11:59 Intake Total 1012 Output Total 800 Balance 212 Weight 120.6 kg Lab Results: Lab Results-Last 24 Hours 11/22/24 11/22/24 11/22/24 Range/Units 16:51 17:28 17:28 WBC 7.6 (3.98-10.04) x10^3/uL RBC 3.65 L (3.93-5.22) x10^6/uL Hgb 11.5 (11.2-15.7) g/dL Hct 36.6 (34.1-44.9) % MCV 100.3 H (79.4-94.8) fL MCH 31.5 (25.6-32.2) pg MCHC 31.4 L (32.2-35.5) g/dL RDW 13.0 (11.7-14.4) % Plt Count 206 (182-369) x10^3/uL MPV 9.3 L (9.4-12.3) fL Gran % 57.8 (34.0-71.1) % Immature Gran % (Auto) 0.3 (0.001-0.429) % Nucleat RBC Rel Count 0.0 (0.00-0.2) % Eos # (Auto) 1.08 H (0.04-0.36) x10^3/uL Immature Gran # (Auto) 0.02 (0.001-0.031) x10^3u/L Absolute Lymphs (auto) 1.43 (1.18-3.74) x10^3/uL Absolute Monos (auto) 0.59 (0.24-0.86) x10^3/uL Absolute Nucleated RBC 0.00 (0.00-0.012) x10^3u/L Lymphocytes % 18.8 L (19.3-51.7) % Monocytes % 7.8 (4.7-12.5) % Eosinophils % 14.2 H (0.7-5.8) % Basophils % 1.1 (0.1-1.2) % Absolute Granulocytes 4.41 (1.56-6.13) x10^3/uL Basophils # 0.08 (0.01-0.08) x10^3/uL Sodium 139 (135-145) mmol/L Potassium 4.3 (3.5-5.1) mmol/L Chloride 101 (98-107) mmol/L Carbon Dioxide 32 H (22-30) mmol/L Anion Gap 10.3 (5-15) MEQ/L BUN 21 H (7-17) mg/dL Creatinine 2.11 H (0.52-1.04) mg/dL Estimated GFR 23.0 ML/MIN Glucose 94 (74-106) mg/dL Hemoglobin A1c (4.5-6.0) % Lactic Acid 1.2 (0.4-2.0) Calcium 10.6 H (8.4-10.2) mg/dL Troponin I (0.000-0.033) ng/mL NT-Pro-B Natriuret Pep (<300) pg/mL Slides for Path Review 11/22/24 11/22/24 11/23/24 Range/Units 17:28 21:00 01:35 WBC (3.98-10.04) x10^3/uL RBC (3.93-5.22) x10^6/uL Hgb (11.2-15.7) g/dL Hct (34.1-44.9) % MCV (79.4-94.8) fL MCH (25.6-32.2) pg MCHC (32.2-35.5) g/dL RDW (11.7-14.4) % Plt Count (182-369) x10^3/uL MPV (9.4-12.3) fL Gran % (34.0-71.1) % Immature Gran % (Auto) (0.001-0.429) % Nucleat RBC Rel Count (0.00-0.2) % Eos # (Auto) (0.04-0.36) x10^3/uL Immature Gran # (Auto) (0.001-0.031) x10^3u/L Absolute Lymphs (auto) (1.18-3.74) x10^3/uL Absolute Monos (auto) (0.24-0.86) x10^3/uL Absolute Nucleated RBC (0.00-0.012) x10^3u/L Lymphocytes % (19.3-51.7) % Monocytes % (4.7-12.5) % Eosinophils % (0.7-5.8) % Basophils % (0.1-1.2) % Absolute Granulocytes (1.56-6.13) x10^3/uL Basophils # (0.01-0.08) x10^3/uL Sodium (135-145) mmol/L Potassium (3.5-5.1) mmol/L Chloride (98-107) mmol/L Carbon Dioxide (22-30) mmol/L Anion Gap (5-15) MEQ/L BUN (7-17) mg/dL Creatinine (0.52-1.04) mg/dL Estimated GFR ML/MIN Glucose (74-106) mg/dL Hemoglobin A1c (4.5-6.0) % Lactic Acid (0.4-2.0) Calcium (8.4-10.2) mg/dL Troponin I < 0.012 < 0.012 < 0.012 (0.000-0.033) ng/mL NT-Pro-B Natriuret Pep 276 (<300) pg/mL Slides for Path Review 11/23/24 11/23/24 11/23/24 Range/Units 01:35 01:35 05:20 WBC 6.3 (3.98-10.04) x10^3/uL RBC 3.43 L (3.93-5.22) x10^6/uL Hgb 10.8 L (11.2-15.7) g/dL Hct 33.5 L (34.1-44.9) % MCV 97.7 H (79.4-94.8) fL MCH 31.5 (25.6-32.2) pg MCHC 32.2 (32.2-35.5) g/dL RDW 13.0 (11.7-14.4) % Plt Count 178 L (182-369) x10^3/uL MPV 9.1 L (9.4-12.3) fL Gran % 90.5 H (34.0-71.1) % Immature Gran % (Auto) 0.5 H (0.001-0.429) % Nucleat RBC Rel Count 0.0 (0.00-0.2) % Eos # (Auto) 0.01 L (0.04-0.36) x10^3/uL Immature Gran # (Auto) 0.03 (0.001-0.031) x10^3u/L Absolute Lymphs (auto) 0.50 L (1.18-3.74) x10^3/uL Absolute Monos (auto) 0.04 L (0.24-0.86) x10^3/uL Absolute Nucleated RBC 0.00 (0.00-0.012) x10^3u/L Lymphocytes % 7.9 L (19.3-51.7) % Monocytes % 0.6 L (4.7-12.5) % Eosinophils % 0.2 L (0.7-5.8) % Basophils % 0.3 (0.1-1.2) % Absolute Granulocytes 5.71 (1.56-6.13) x10^3/uL Basophils # 0.02 (0.01-0.08) x10^3/uL Sodium 136 (135-145) mmol/L Potassium 4.2 (3.5-5.1) mmol/L Chloride 99 (98-107) mmol/L Carbon Dioxide 29 (22-30) mmol/L Anion Gap 12.5 (5-15) MEQ/L BUN 25 H (7-17) mg/dL Creatinine 2.06 H (0.52-1.04) mg/dL Estimated GFR 23.6 ML/MIN Glucose 213 H (74-106) mg/dL Hemoglobin A1c 5.72 (4.5-6.0) % Lactic Acid (0.4-2.0) Calcium 10.3 H (8.4-10.2) mg/dL Troponin I (0.000-0.033) ng/mL NT-Pro-B Natriuret Pep (<300) pg/mL Slides for Path Review YES Radiology Exams: Radiology Procedures Category Date Time Status CHEST 1 VIEW (PORTABLE) Stat Exams 11/22/24 16:52 Completed Medications: Medications Generic Name Dose Route Start Last Admin Trade Name Freq PRN Reason Stop Dose Admin Acetaminophen 325 mg 11/22/24 20:24 Acetaminophen 325 Mg Tablet PO 12/22/24 20:23 Q4H PRN PRN PAIN, FEVER, HEADACHE Albuterol Sulfate 2.5 mg 11/22/24 20:29 Albuterol Sulfate 2.5 Mg/3 Ml Neb IH 12/22/24 20:28 Q4H PRN PRN SHORTNESS OF BREATH/WHEEZING Albuterol/Ipratropium 3 ml 11/23/24 01:00 11/23/24 07:16 Ipratropium/Albuterol Sulfate 3 Ml Ampul.Neb IH 12/23/24 00:59 3 ml Q6HRT THI Administration Allopurinol 100 mg 11/23/24 10:00 Allopurinol 100 Mg Tablet PO 12/23/24 09:59 DAILY [facility] Amlodipine Besylate 5 mg 11/23/24 10:00 Amlodipine Besylate 5 Mg Tablet PO 12/23/24 09:59 DAILY [facility] Methylprednisolone Sodium 0 mg 11/22/24 22:00 11/23/24 05:37 Succinate 40 mg/ Sterile Water IV 10/24/25 21:59 40 mg 1 ml Q8HT THI Administration Guaifenesin 600 mg 11/22/24 22:00 11/22/24 22:37 Guaifenesin 600 Mg Tablet Er PO 12/22/24 21:59 600 mg BID THI Administration Sodium Chloride 1,000 mls @ 50 mls/hr 11/22/24 20:30 11/22/24 22:35 Sodium Chloride 0.9% 1000 Ml IV 12/22/24 20:29 50 mls/hr .Q20H THI Administration Piperacillin Sod/Tazobactam 100 mls @ 200 mls/hr 11/23/24 12:00 Sod 3.375 gm/ Sodium Chloride IV 11/26/24 11:59 Q6HT THI Lactobacillus Acidophilus 1 tab 11/23/24 10:00 Lactobacillus Acidophilus 1 Tab Tablet PO 12/23/24 09:59 DAILY [facility] Levothyroxine Sodium 112 mcg 11/23/24 10:00 Levothyroxine Sodium 112 Mcg Tablet PO 12/23/24 09:59 DAILY [facility] Melatonin 3 mg 11/22/24 21:26 11/22/24 22:36 Melatonin 3 Mg Tablet PO 12/22/24 21:25 3 mg HS PRN PRN Administration INSOMNIA Miscellaneous Information 1 each 11/23/24 07:30 Medication Intervention 1 Each Each 12/23/24 07:29 .RN TO CHECK [facility] Multivitamins Therapeutic 1 tab 11/23/24 10:00 Multivitamins,Therapeutic 1 Tab Tab PO 12/23/24 09:59 DAILY [facility] Ondansetron HCl 4 mg 11/22/24 20:24 Ondansetron Hcl 4 Mg/2 Ml Vial IV 12/22/24 20:23 Q6H PRN PRN NAUSEA/VOMITING Pantoprazole Sodium 40 mg 11/23/24 10:00 Protonix (Pantoprazole) 40 Mg Tablet PO 12/23/24 09:59 DAILY [facility] Rivaroxaban 15 mg 11/23/24 22:00 Rivaroxaban 10 Mg Tablet PO 12/23/24 21:59 HS THI Simvastatin 40 mg 11/23/24 22:00 11/22/24 22:36 Simvastatin 20 Mg Tablet PO 12/23/24 21:59 40 mg HS THI Administration Tramadol HCl 25 mg 11/23/24 10:00 Tramadol Hcl 50 Mg Tablet PO 12/23/24 09:59 DAILY [facility] Tramadol HCl 50 mg 11/22/24 22:00 11/22/24 22:37 Tramadol Hcl 50 Mg Tablet PO 12/22/24 21:59 50 mg HS THI Administration Discontinued Medications Generic Name Dose Route Start Last Admin Trade Name Marley PRN Reason Stop Dose Admin Albuterol/Ipratropium 6 ml 11/22/24 16:58 11/22/24 17:05 Ipratropium/Albuterol Sulfate 3 Ml Ampul.Neb IH 11/22/24 16:59 6 ml STAT ONE Administration Albuterol/Ipratropium Confirm 11/22/24 17:04 Ipratropium/Albuterol Sulfate 3 Ml Ampul.Neb Administered 11/22/24 17:05 Dose 3 ml IH .STK-MED ONE Albuterol/Ipratropium Confirm 11/22/24 17:06 Ipratropium/Albuterol Sulfate 3 Ml Ampul.Neb Administered 11/22/24 17:07 Dose 3 ml IH .STK-MED ONE Allopurinol 300 mg 11/23/24 10:00 Allopurinol 300 Mg Tablet PO 12/23/24 09:59 DAILY [facility] Methylprednisolone Sodium 0 mg 11/22/24 16:58 11/22/24 17:15 Succinate 125 mg/ Sterile IV 11/22/24 16:59 125 mg Water 2 ml STAT ONE Administration Piperacillin Sod/Tazobactam 100 mls @ 200 mls/hr 11/23/24 00:00 11/23/24 05:37 Sod 3.375 gm/ Sodium Chloride IV 11/26/24 00:00 200 mls/hr Q6HT THI Administration Sodium Chloride Confirm 11/22/24 22:48 Sodium Chloride 0.9% Administered 11/22/24 22:49 Dose 100 mls @ ud .ROUTE .STK-MED ONE Sodium Chloride Confirm 11/23/24 05:18 Sodium Chloride 0.9% Administered 11/23/24 05:19 Dose 100 mls @ ud .ROUTE .STK-MED ONE Piperacillin Sod/Tazobactam 100 mls @ 200 mls/hr 11/23/24 12:00 Sod 2.25 gm/ Sodium Chloride IV 12/23/24 11:59 Q6HT THI Methylprednisolone Sodium Succinate Confirm 11/22/24 17:11 Methylprednis Sod Succ 125 Mg/2 Ml Vial Administered 11/22/24 17:12 Dose 125 mg .ROUTE .STK-MED ONE Methylprednisolone Sodium Succinate Confirm 11/22/24 22:25 Methylprednisolone Sod Suc 40m 40 Mg/Ml Vial Administered 11/22/24 22:26 Dose 40 mg .ROUTE .STK-MED ONE Methylprednisolone Sodium Succinate Confirm 11/23/24 05:17 Methylprednisolone Sod Suc 40m 40 Mg/Ml Vial Administered 11/23/24 05:18 Dose 40 mg .ROUTE .STK-MED ONE Non-Formulary Medication 40 mg 11/22/24 22:00 11/23/24 07:39 Simvastatin [Simvastatin] PO 12/22/24 21:59 Not Given HS THI Non-Formulary Medication 20 mg 11/22/24 22:00 11/23/24 07:39 Rivaroxaban [Xarelto] PO 12/22/24 21:59 Not Given HS THI Non-Formulary Medication 1 each 11/22/24 20:22 Pharmacy Dosing Request 11/22/24 20:23 STAT ONE Piperacillin Sod/Tazobactam Sod Confirm 11/22/24 22:47 Piperacillin/Tazobactam Sodium 3.375 Gm Vial Administered 11/22/24 22:48 Dose 3.375 gm IV .STK-MED ONE Piperacillin Sod/Tazobactam Sod Confirm 11/23/24 05:17 Piperacillin/Tazobactam Sodium 3.375 Gm Vial Administered 11/23/24 05:18 Dose 3.375 gm IV .STK-MED ONE Rivaroxaban Confirm 11/22/24 22:26 Rivaroxaban 10 Mg Tablet Administered 11/22/24 22:27 Dose 20 mg .ROUTE .STK-MED ONE Rivaroxaban 20 mg 11/23/24 22:00 11/22/24 22:35 Rivaroxaban 10 Mg Tablet PO 12/23/24 21:59 20 mg QHS THI Administration Simvastatin Confirm 11/22/24 22:26 Simvastatin 20 Mg Tablet Administered 11/22/24 22:27 Dose 40 mg .ROUTE .STK-MED ONE Sterile Water Confirm 11/22/24 17:10 Water For Injection,Sterile 10 Ml Vial Administered 11/22/24 17:11 Dose 10 ml IJ .STK-MED ONE Sterile Water Confirm 11/22/24 22:26 Water For Injection,Sterile 10 Ml Vial Administered 11/22/24 22:27 Dose 10 ml IJ .STK-MED ONE Sterile Water Confirm 11/23/24 05:17 Water For Injection,Sterile 10 Ml Vial Administered 11/23/24 05:18 Dose 10 ml IJ .STK-MED ONE Multi-Disciplinary Progress Notes: Multi-Disciplinary Progress Notes 11/23/24 07:39 Pharmacy Note by Vlad Mancia Renal dosing consult: Estimated crcl is 19.5ml/min based on creat 2.06. Zosyn dose decreased to 2.25gm. Allopurinol decreased to 100mg. Xarelto decreased to 15mg dose. All other meds ok at this point. Initialized on 11/23/24 07:39 - END OF NOTE Assessment/Plan (1) COPD with exacerbation Current Visit: Yes Status: Acute Assessment & Plan: - CXR: Portable chest unchanged again demonstrating bilateral lower lung interstitial alveolar opacities again without consolidation/large effusion. Heart not enlarged again with large hiatal hernia and intrathoracic stomach. No new cardiopulmonary abnormalities. - Continue Zosyn, solumedrol, duonebs, proventil - CBC, CMP reviewed - RA 93% - Sputum culture pending - BC x2 pending Code(s): J44.1 - CHRONIC OBSTRUCTIVE PULMONARY DISEASE W (ACUTE) EXACERBATION (2) MALIK (acute kidney injury) Current Visit: Yes Status: Acute Assessment & Plan: - Creat 2.06, baseline 1.29 - Increased IVF to 75ml/hr Code(s): N17.9 - ACUTE KIDNEY FAILURE, UNSPECIFIED (3) Pre-diabetes Current Visit: Yes Status: Acute Assessment & Plan: - A1C 5.72 - Humalog s/s- low dose - Accuchecks ac/hs - BMI > 35 - Advised lifestyle changes- including diet and exercise. Code(s): R73.03 - PREDIABETES (4) HLD (hyperlipidemia) Current Visit: No Status: Chronic Assessment & Plan: - Continue statin Code(s): E78.5 - HYPERLIPIDEMIA, UNSPECIFIED (5) History of breast cancer Current Visit: No Status: Acute Assessment & Plan: - noted - no IV sticks in affected side Code(s): Z85.3 - PERSONAL HISTORY OF MALIGNANT NEOPLASM OF BREAST (6) History of pulmonary embolism Current Visit: No Status: Chronic Assessment & Plan: - Xarelto - D-dimer pending Code(s): Z86.711 - PERSONAL HISTORY OF PULMONARY EMBOLISM (7) Morbid obesity with BMI of 40.0-44.9, adult Current Visit: Yes Status: Chronic Assessment & Plan: - Advised ADA diet and exercise control Code(s): E66.01 - MORBID (SEVERE) OBESITY DUE TO EXCESS CALORIES; Z68.41 - BODY MASS INDEX [BMI] 40.0-44.9, ADULT (8) Hypothyroid Current Visit: No Status: Chronic Assessment & Plan: - Continue synthroid VTE: Xarelto PPI: Protonix Next of KIN: Child- Angi Lara [phone] D/C plan: tomorrow Code status: Full Plan of care time > 40 minutes Code(s): E03.9 - HYPOTHYROIDISM, UNSPECIFIED
[2024-11-23] MEDS ORDERED: NON-FORMULARY ITEM (Vilazodone Hcl [Vilazodone Hcl] 20 MG Tablet) PO SCH (10:00)
[2024-11-23] MEDS ORDERED: ZYLOPRIM 300 MG PO SCH (10:00)
[2024-11-23] MEDS: NORVASC 5 MG PO SCH (10:08)
[2024-11-23] MEDS: THERAGRAN MULTIVITAMIN PO SCH (10:08)
[2024-11-23] MEDS: Acidophilus TABLET PO SCH (10:09)
[2024-11-23] MEDS: ULTRAM 50 MG PO SCH (10:09)
[2024-11-23] MEDS: Protonix 40MG Tablet PO SCH (10:09)
[2024-11-23] MEDS: ZYLOPRIM 100 MG PO SCH (10:09)
[2024-11-23] MEDS: SYNTHROID 112 MCG PO SCH (10:10)
[2024-11-23] MEDS: TYLENOL 325 MG PO PRN (10:12)
[2024-11-23] MEDS ORDERED: Piperacillin/Tazobactam 2.25 GM 2.25 GM in Sodium Chloride 0.9% 100 ML IV SCH (12:00)
[2024-11-23] MEDS: XARELTO 10 MG TABLET PO SCH (21:52)
[2024-11-24 04:59] LABS: Hematocrit 31.3 % (34.1-44.9); Hemoglobin 10.0 g/dL (11.2-15.7); Mean Corpuscular Hemoglobin 31.6 pg (25.6-32.2); Mean Corpuscular Hgb Concent. 31.9 g/dL (32.2-35.5); Platelet Count 169 x10^3/uL (182-369); Red Blood Count 3.16 x10^6/uL (3.93-5.22); White Blood Count 13.8 x10^3/uL (3.98-10.04)
[2024-11-24 05:25] LABS: Calcium 9.6 mg/dL (8.4-10.2); Carbon Dioxide 26.0 mmol/L (22-30); Creatinine 1 1.63 mg/dL (0.52-1.04); EST GLOMERULAR FILTRATION RATE 31.3 ML/MIN; Glucose 165.0 mg/dL (74-106); Potassium 4.3 mmol/L (3.5-5.1); SGOT/AST 37.0 U/L (14-36); SGPT/ALT 35.0 U/L (0-35); Total Protein 6.5 g/dL (6.3-8.2)
[2024-11-24 07:37] VITALS: BP 110/57; PULSE 69; RESP 19; TEMP 97.1; O2SAT 93
--- NOTE | 2024-11-24 08:44 | PCM.DS ---
Discharge Summary Date of Admission: 11/22/24 20:16 Date of Discharge: 11/24/24 Admitting Physician: YANCI VILLAFANA MD Primary Care Provider: CLAIRE MAY MD Allergies Allergies No Known Drug Allergies Allergy (Verified 09/08/18 12:00) Hospital Summary - Hospital Course Hospital Course: is a 84-year-old female with a past medical history of deep vein thrombosis, mild chronic kidney disease, chronic obstructive pulmonary disease, hypertension, and a recent admission for bilateral pneumonia with COPD exacerbation presented to the ED on 11/23 with a 5-day history of recurrent cough productive of yellow to brown sputum. She reported initially improving after prior steroid and antibiotic therapy but noted worsening shortness of breath with wheezing, describing her breathing as worse than during her last admission. She denied chest pain or fever. On 11/23, she reported some improvement in symptoms overall, though she continued to experience shortness of breath following meals. Sputum culture is pending. Morning glucose was elevated, and hemoglobin A1C was 5.72, consistent with a new diagnosis of prediabetes; sliding scale Humalog with AC/HS accuchecks was initiated. Her acute kidney injury is improving, and IV fluids were increased to 75 mL/hr. She remains on IV antibiotics for COPD exacerbation with close monitoring of respiratory status. 11/24 Pt sitting up in bed. She states she feels fine and would like to d/c today. Discussed labs and kidney function. MALIK imported but not at baseline. She is willing to have repeat labs OP with PCP. Encourage oral fluid intake at home. She denies any further concerns at this time. Will d/c with antibiotic and steroid for COPD exacerbation. - Vitals & Intake/Output Vital Signs: Vital Signs Temperature 97.1 F 11/24/24 07:36 Pulse Rate 69 11/24/24 07:36 Respiratory Rate 19 11/24/24 07:36 Blood Pressure 110/57 11/24/24 07:36 O2 Sat by Pulse Oximetry 93 L 11/24/24 07:36 Intake & Output: Intake & Output 11/21/24 11/22/24 11/23/24 11/24/24 11:59 11:59 11:59 11:59 Intake Total 1012 3297 Output Total 800 2700 Balance 212 597 Weight 120.6 kg - Lab Result Diagrams: 11/24/24 04:52 11/24/24 04:52 Lab Results-Last 24 Hrs: Lab Results-Last 24 Hours 11/23/24 11/24/24 11/24/24 Range/Units 10:05 04:52 04:52 WBC 13.8 H (3.98-10.04) x10^3/uL RBC 3.16 L (3.93-5.22) x10^6/uL Hgb 10.0 L (11.2-15.7) g/dL Hct 31.3 L (34.1-44.9) % MCV 99.1 H (79.4-94.8) fL MCH 31.6 (25.6-32.2) pg MCHC 31.9 L (32.2-35.5) g/dL RDW 13.0 (11.7-14.4) % Plt Count 169 L (182-369) x10^3/uL MPV 8.9 L (9.4-12.3) fL D-Dimer < 0.19 (0.0-0.50) mg/L Sodium 138 (135-145) mmol/L Potassium 4.3 (3.5-5.1) mmol/L Chloride 103 (98-107) mmol/L Carbon Dioxide 26 (22-30) mmol/L Anion Gap 13.6 (5-15) MEQ/L BUN 29 H (7-17) mg/dL Creatinine 1.63 H (0.52-1.04) mg/dL Estimated GFR 31.3 ML/MIN Glucose 165 H (74-106) mg/dL POC Glucometer (74 to 106) mg/dL Calcium 9.6 (8.4-10.2) mg/dL Total Bilirubin 0.20 (0.2-1.3) mg/dL AST 37 H (14-36) U/L ALT 35 (0-35) U/L Alkaline Phosphatase 55 (38-126) U/L Serum Total Protein 6.5 (6.3-8.2) g/dL Albumin 4.0 (3.5-5.0) g/dL 11/24/24 Range/Units 07:30 WBC (3.98-10.04) x10^3/uL RBC (3.93-5.22) x10^6/uL Hgb (11.2-15.7) g/dL Hct (34.1-44.9) % MCV (79.4-94.8) fL MCH (25.6-32.2) pg MCHC (32.2-35.5) g/dL RDW (11.7-14.4) % Plt Count (182-369) x10^3/uL MPV (9.4-12.3) fL D-Dimer (0.0-0.50) mg/L Sodium (135-145) mmol/L Potassium (3.5-5.1) mmol/L Chloride (98-107) mmol/L Carbon Dioxide (22-30) mmol/L Anion Gap (5-15) MEQ/L BUN (7-17) mg/dL Creatinine (0.52-1.04) mg/dL Estimated GFR ML/MIN Glucose (74-106) mg/dL POC Glucometer 170 H (74 to 106) mg/dL Calcium (8.4-10.2) mg/dL Total Bilirubin (0.2-1.3) mg/dL AST (14-36) U/L ALT (0-35) U/L Alkaline Phosphatase (38-126) U/L Serum Total Protein (6.3-8.2) g/dL Albumin (3.5-5.0) g/dL Micro Results-Entire Visit: Microbiology 11/22/24 17:28 Blood Culture - Preliminary Blood 11/22/24 17:21 Blood Culture - Preliminary Blood Accuchecks Date 11/24/24 Time 07:36 - Radiology Exams Ordered Rad Exams-Entire Visit: Radiology Procedures Category Date Time Status CHEST 1 VIEW (PORTABLE) Stat Exams 11/22/24 16:52 Completed - Procedures and Test Procedures and Tests throughout Hospitalization: Therapy Orders & Screens 11/22/24 17:09 Respiratory Therapy Assessment DAILY Comment: 11/22/24 20:19 BiPap/CPAP ROUTINE Comment: cpap as per home Oxygen Nasal Cannula 3 lpm Comment: with cpap at [facility] 11/22/24 20:24 PT Eval & Treat ( Order) ONCE Reason for Eval:: COPD Diagnosis: COPD OT Eval and Treat ( Order) ONCE Comment: Physician Instructions: Reason For Exam: Evaluate: Yes Treat: Yes Diagnosis: COPD 11/22/24 20:31 Respiratory Therapy Consult ONCE Comment: Reason For Exam: 11/22/24 21:10 ST Screen per Nursing Assess ONCE Comment: Protocol Order Physician Instructions: Greater than [address] Admission Screening Reason For Exam: Triggered on Admission Diagnosis: dyspnea, SOB, MALIK, Pulmonary Infiltrates CVA/Dysphagia/Aphasia: No Cognitive Deficits: No Dehydration/Nutrition Deficit: Yes Reflux: No Oral-Motor Difficulties: No Pneumonia: No Penitentiary Resident: No Total Points: 5 Discharge Exam General Appearance: no apparent distress, alert, obese Neurologic Exam: alert, oriented x 3, cooperative, normal mood/affect, nml cerebellar function, sensation nml, No motor deficits Eye Exam: PERRL, EOMI, eyes nml inspection Ears, Nose, Throat Exam: normal ENT inspection, pharynx normal, moist mucous membranes Neck Exam: normal inspection, non-tender, supple, full range of motion Respiratory Exam: normal breath sounds, lungs clear, No respiratory distress Cardiovascular Exam: regular rate/rhythm, normal heart sounds Gastrointestinal/Abdomen Exam: soft, No tenderness, No mass Pelvic Exam: deferred Rectal Exam: deferred Back Exam: normal inspection, normal range of motion, No CVA tenderness, No vertebral tenderness Extremity Exam: normal inspection, normal range of motion Skin Exam: normal color, warm, dry Final Diagnosis/Problem List - Final Discharge Diagnosis/Problem (1) COPD with exacerbation Current Visit: Yes Status: Acute Code(s): J44.1 - CHRONIC OBSTRUCTIVE PULMONARY DISEASE W (ACUTE) EXACERBATION (2) MALIK (acute kidney injury) Current Visit: Yes Status: Acute Code(s): N17.9 - ACUTE KIDNEY FAILURE, UNSPECIFIED (3) Pre-diabetes Current Visit: Yes Status: Acute Code(s): R73.03 - PREDIABETES (4) HLD (hyperlipidemia) Current Visit: No Status: Chronic Code(s): E78.5 - HYPERLIPIDEMIA, UNSPECIFIED (5) History of breast cancer Current Visit: No Status: Acute Code(s): Z85.3 - PERSONAL HISTORY OF MALIGNANT NEOPLASM OF BREAST (6) History of pulmonary embolism Current Visit: No Status: Chronic Code(s): Z86.711 - PERSONAL HISTORY OF PULMONARY EMBOLISM (7) Morbid obesity with BMI of 40.0-44.9, adult Current Visit: Yes Status: Chronic Code(s): E66.01 - MORBID (SEVERE) OBESITY DUE TO EXCESS CALORIES; Z68.41 - BODY MASS INDEX [BMI] 40.0-44.9, ADULT (8) Hypothyroid Current Visit: No Status: Chronic Assessment & Plan: (1) COPD with exacerbation Current Visit: Yes Status: Acute Assessment & Plan: - CXR: Portable chest unchanged again demonstrating bilateral lower lung interstitial alveolar opacities again without consolidation/large effusion. Heart not enlarged again with large hiatal hernia and intrathoracic stomach. No new cardiopulmonary abnormalities. - Continue Zosyn, solumedrol, duonebs, proventil - CBC, CMP reviewed - RA 93% - Sputum culture pending- will continue to follow OP - BC x2 negative - D/C with steroid and antibiotic Code(s): J44.1 - CHRONIC OBSTRUCTIVE PULMONARY DISEASE W (ACUTE) EXACERBATION (2) MALIK (acute kidney injury) Current Visit: Yes Status: Acute Assessment & Plan: - Creat 2.06, baseline 1.29 - Increased IVF to 75ml/hr 11/24 - Creat 1.63- improving - F/U OP for repeat labs with PCP Code(s): N17.9 - ACUTE KIDNEY FAILURE, UNSPECIFIED (3) Pre-diabetes Current Visit: Yes Status: Acute Assessment & Plan: - A1C 5.72 - Humalog s/s- low dose - Accuchecks ac/hs - BMI > 35 - Advised lifestyle changes- including diet and exercise. Code(s): R73.03 - PREDIABETES (4) HLD (hyperlipidemia) Current Visit: No Status: Chronic Assessment & Plan: - Continue statin Code(s): E78.5 - HYPERLIPIDEMIA, UNSPECIFIED (5) History of breast cancer Current Visit: No Status: Acute Assessment & Plan: - noted - no IV sticks in affected side Code(s): Z85.3 - PERSONAL HISTORY OF MALIGNANT NEOPLASM OF BREAST (6) History of pulmonary embolism Current Visit: No Status: Chronic Assessment & Plan: - Xarelto - D-dimer < 0.19 Code(s): Z86.711 - PERSONAL HISTORY OF PULMONARY EMBOLISM (7) Morbid obesity with BMI of 40.0-44.9, adult Current Visit: Yes Status: Chronic Assessment & Plan: - Advised ADA diet and exercise control Code(s): E66.01 - MORBID (SEVERE) OBESITY DUE TO EXCESS CALORIES; Z68.41 - BODY MASS INDEX [BMI] 40.0-44.9, ADULT (8) Hypothyroid Current Visit: No Status: Chronic Assessment & Plan: - Continue synthroid D/C plan of care time > 37 minutes D/C meds: Prednisone, doxycycline Code(s): E03.9 - HYPOTHYROIDISM, UNSPECIFIED - Discharge Discharge Date: 11/24/24 Disposition: HOME HEALTH SERVICE Condition: Stable Prescriptions: New Prednisone 20 mg [Deltasone 20 mg] 20 mg PO BID 5 Days #10 tablet Continue Levothyroxine Sodium 112 Mcg [Synthroid 112 Mcg] 112 mcg PO DAILY Torsemide 20 mg [Demadex 20 mg] 20 mg PO DAILY Allopurinol 300 mg [Zyloprim 300 mg] 300 mg PO DAILY Vilazodone HCl 20 mg PO DAILY Tramadol HCl 50 mg [Ultram 50 mg] 50 mg PO HS Tramadol HCl 25 mg PO DAILY Spironolactone 25 mg PO DAILY Simvastatin 40 mg PO HS Rivaroxaban [Xarelto] 20 mg PO HS Pantoprazole Sodium [Protonix] 40 mg PO DAILY Multivit-Min/Iron/Folic/Lutein [Centrum Silver Women Tablet] 1 each PO DAILY Instructions: Acute kidney injury, Lowering your risk of prediabetes and type 2 diabetes, COPD exacerbation - Discharge instructions, Obesity, Adult Additional Instructions: [facility] HAS BEEN SET UP FOR YOU. THEY WILL CALL YOU TO ARRANGE A TIME TO COME SEE YOU. THEIR PHONE NUMBER IS [phone] IF YOU SHOULD NEED ANYTHING PRIOR TO THEIR PHONE CALL Follow up with: NIGEL JONES [ACTIVE STAFF, PULMONARY MEDICINE] - 11/29/24 2:45 pm CLAIRE MAY MD [Primary Care Provider, FAMILY PRACTICE] - 12/01/24 11:00 am
== END 2024-11-24 10:35 | disposition home health service (06) ==
LOC: ED 16:41 → MED SURG 20:16
PROVIDERS: ADMIT Internal Medicine; ATTEND Internal Medicine
DX: J44.1 Chronic obstructive pulmonary disease with (acute) exacerbation (principal); N17.9 Acute kidney failure, unspecified; R73.03 Prediabetes; E78.5 Hyperlipidemia, unspecified; Z85.3 Personal history of malignant neoplasm of breast; Z86.711 Personal history of pulmonary embolism; E66.01 Morbid (severe) obesity due to excess calories; Z68.41 Body mass index [BMI] 40.0-44.9, adult; E03.9 Hypothyroidism, unspecified; I12.9 Hypertensive chronic kidney disease with stage 1 through stage 4 chronic kidney disease, or unspecified chronic kidney disease; N18.9 Chronic kidney disease, unspecified; Z79.01 Long term (current) use of anticoagulants; Z79.899 Other long term (current) drug therapy
CPT/HCPCS: 36415; 71045; 80048; 80053; 82947; 83036; 83605; 83880; 84484; 85025; 85027; 85379; 87040; 93005; 93041; 94640; 94660; 94760; 96374; 97161; 99285; G0378

== ENCOUNTER 2025-01-10 18:36 | Observation (INO) | payer MEDICARE ==
[2025-01-10] MEDS ORDERED: DUONEB 0.5-3 MG/3 ml Neb IH ONE (18:51)
--- NOTE | 2025-01-10 19:17 | ERPHSYRPT ---
- History of Present Illness Time Seen by Provider: 01/10/25 19:07 Source: patient Exam Limitations: no limitations Patient Subjective Stated Complaint: sob Triage Nursing Assessment: patient presents to ed via private vehicle, patient wheeled into ed and able to transfer over to ed bed with minimal assist, patient's oxygen saturation upon arrival 91% on room air, patient placed on 2 L oxygen via nasal cannula with oxygen saturation now at 98%, patient afebrile, wheezing heard throughout all verdugo, skin pwd Physician History: Patient is a 84-year-old female history of coronary artery disease DVT COPD obstructive sleep apnea depression breast cancer presents to our ED for evaluation of shortness of breath. Patient on Xarelto. Patient uses home O2. She reports she ran out of her home oxygen. Upon arrival to our ED patient was hypoxic at 91%. Patient started on 2 L nasal cannula. O2 sat increased to 98%. No chest pain. Auditory wheezing observed. Mild respiratory distress. No nausea vomiting or diaphoresis. Patient voices no other complaints or concerns at this time. Portions of this note were created with voice recognition technology. There may be grammatical, spelling, punctuation or sound alike errors Timing/Duration: today Activities at Onset: none Severity of Dyspnea-Max: moderate Severity of Dyspnea-Current: mild Possible Cause: occasional episodes Modifying Factors: Improves With: activity Associated Symptoms: denies symptoms Allergies/Adverse Reactions: No Known Drug Allergies Allergy (Verified 01/10/25 18:57) Home Medications: Allopurinol 300 mg [Zyloprim 300 mg] 300 mg PO DAILY 11/01/24 [History] Levothyroxine Sodium 112 Mcg [Synthroid 112 Mcg] 112 mcg PO DAILY 11/01/24 [History] Multivit-Min/Iron/Folic/Lutein [Centrum Silver Women Tablet] 1 each PO DAILY 11/01/24 [History] Pantoprazole Sodium [Protonix] 40 mg PO DAILY 11/01/24 [History] Rivaroxaban [Xarelto] 20 mg PO HS 11/01/24 [History] Simvastatin 40 mg PO HS 11/01/24 [History] Spironolactone 25 mg PO DAILY 11/01/24 [History] Torsemide 20 mg [Demadex 20 mg] 20 mg PO DAILY 09/03/25 [History] Tramadol HCl 25 mg PO DAILY 11/01/24 [History] Tramadol HCl 50 mg [Ultram 50 mg] 50 mg PO HS 11/01/24 [History] Vilazodone HCl 20 mg PO DAILY 11/01/24 [History] Hx Tetanus, Diphtheria Vaccination/Date Given: Yes Hx Influenza Vaccination/Date Given: Yes Hx Pneumococcal Vaccination/Date Given: Yes Travel Risk - International Travel Have you traveled outside of the country in past 3 weeks: No - Emerging Infectious Disease Are you exhibiting symptoms associated with any current EIDs: No Symptoms: Cough: New Onset, Shortness of Breath - Review of Systems All Other Systems: Reviewed and Negative - Past Medical History Pertinent Past Medical History: Yes Neurological History: No Pertinent History ENT History: No Pertinent History Cardiac History: Coronary Artery Disease, Deep Vein Thrombosis Respiratory History: COPD, Sleep Apnea, Other Endocrine Medical History: No Pertinent History Musculoskeletal History: No Pertinent History GI Medical History: GERD History: No Pertinent History Psycho-Social History: Depression Female Reproductive Disorders: Breast Cancer - Past Surgical History Past Surgical History: Yes Neuro Surgical History: No Pertinent History Cardiac: No Pertinent History Respiratory: No Pertinent History Gastrointestinal: No Pertinent History Genitourinary: No Pertinent History Musculoskeletal: Orthopedic Surgery Female Surgical History: Hysterectomy Other Surgical History: Patient states. 2 knee replacements and veins stripped in legs, left elbow broken in 2018 Significant Family History: no pertinent family hx - Social History Smoking Status: Former smoker Exposure to second hand smoke: No Drug Use: none - Social Determinants of Health Will the patient participate in the screening: Yes Do you worry about a steady place to live?: No Do you have any problems with any of the following?: No known problems In the past 12 months,have you had to go without utilities?: No Transportation Issues: No Has anyone in your support network made you feel unsafe?: No Have you or anyone in your house had to go w/o enough food: No - Nursing Vital Signs Nursing Vital Signs: Initial Vital Signs Pulse Rate 74 01/10/25 18:31 Respiratory Rate 18 01/10/25 18:31 Blood Pressure 139/73 01/10/25 18:31 O2 Sat by Pulse Oximetry 100 01/10/25 18:31 Pain Scale Pain Intensity 0 - Physical Exam General Appearance: no apparent distress, alert Eye Exam: PERRL/EOMI Neck Exam: normal inspection, supple Respiratory Exam: wheezing Cardiovascular/Chest Exam: normal heart sounds, regular rate/rhythm Abdominal/Gastrointestinal Exam: soft, No tenderness, No distention, No mass Extremity Exam: non-tender, normal range of motion, normal inspection Neurologic Exam: alert, oriented x 3, cooperative, conservation coordinator II-XII nml as tested, sensation nml, No motor deficits Skin Exam: normal color, warm, No dry Lymphatic Exam: No adenopathy SpO2 Interpretation: normal SpO2: 96 O2 Delivery: Room Air - Course Nursing assessment & vital signs reviewed: Yes EKG Interpreted by Me: RATE (91), Sinus Rhythm, NORMAL AXIS, NORMAL INTERVALS, NORMAL QRS - Radiology Exams Chest X-ray Interpretation: Interpreted by me (No acute changes) Ordered Tests: Active Orders 24 hr Category Date Time Status Sample Supervisor STAT Care 01/10/25 18:54 Active EKG-ER Only STAT Care 01/10/25 18:53 Active IV Insertion STAT Care 01/10/25 18:53 Active Pulse Oximetry (ED) STAT Care 01/10/25 18:53 Active CHEST 1 VIEW (PORTABLE) Stat Exams 01/10/25 19:19 Taken BLOOD CULTURE Stat Lab 01/10/25 19:12 Received CBC W DIFF Stat Lab 01/10/25 18:55 Completed CMP Stat Lab 01/10/25 18:55 Completed NT PRO BNPII Stat Lab 01/10/25 18:55 Completed TROPONIN Q4H Lab 01/10/25 18:55 Completed TROPONIN Q4H Lab 01/10/25 23:00 Ordered TROPONIN Q4H Lab 01/11/25 03:00 Ordered UA W/RFX UR CULTURE Stat Lab 01/10/25 18:54 Completed Respiratory Therapy Assessment DAILY RT 01/10/25 19:00 Active Transfer Order Routine Transfer 01/10/25 Ordered Medication Summary Generic Name Dose Route Start Last Admin Trade Name Freq PRN Reason Stop Dose Admin Albuterol/Ipratropium 3 ml 01/10/25 07:00 Ipratropium/Albuterol Sulfate 3 Ml Ampul.Neb IH 01/16/25 07:00 BID THI Discontinued Medications Generic Name Dose Route Start Last Admin Trade Name Freq PRN Reason Stop Dose Admin Albuterol/Ipratropium Confirm 01/10/25 18:51 Ipratropium/Albuterol Sulfate 3 Ml Ampul.Neb Administered 01/10/25 18:52 Dose 3 ml IH .STK-MED ONE Azithromycin Confirm 01/10/25 19:27 Azithromycin Inj Administered 01/10/25 19:28 Dose 500 mg IV .STK-MED ONE Azithromycin 500 mg/ Sodium 250 mls @ 250 mls/hr 01/10/25 19:24 01/10/25 20:42 Chloride IV 01/10/25 20:23 Infused STAT STA Infusion Ceftriaxone Sodium 2 gm in 100 mls @ 200 mls/hr 01/10/25 19:24 01/10/25 20:42 Rocephin 2 Gm/100 Ml Nacl IV 01/10/25 19:53 200 mls/hr STAT ONE 200 mls/hr Administration Sodium Chloride Confirm 01/10/25 19:27 Sodium Chloride 0.9% 250 Ml Administered 01/10/25 19:28 Dose 250 mls @ ud IV .STK-[facility] ONE Ceftriaxone Sodium Confirm 01/10/25 20:42 Rocephin 2 Gm/100 Ml Nacl Administered 01/10/25 20:43 Dose 2 gm in 100 mls @ ud IV .[facility] ONE Lab/Rad Data: Laboratory Result Diagrams 01/10/25 18:55 01/10/25 18:55 Laboratory Results 01/10/25 01/10/25 01/10/25 Range/Units 19:14 18:55 18:55 WBC (3.98-10.04) x10^3/uL RBC (3.93-5.22) x10^6/uL Hgb (11.2-15.7) g/dL Hct (34.1-44.9) % MCV (79.4-94.8) fL MCH (25.6-32.2) pg MCHC (32.2-35.5) g/dL RDW (11.7-14.4) % Plt Count (182-369) x10^3/uL MPV (9.4-12.3) fL Gran % (34.0-71.1) % Immature Gran % (Auto) (0.001-0.429) % Nucleat RBC Rel Count (0.00-0.2) % Eos # (Auto) (0.04-0.36) x10^3/uL Immature Gran # (Auto) (0.001-0.031) x10^3u/L Absolute Lymphs (auto) (1.18-3.74) x10^3/uL Absolute Monos (auto) (0.24-0.86) x10^3/uL Absolute Nucleated RBC (0.00-0.012) x10^3u/L Lymphocytes % (19.3-51.7) % Monocytes % (4.7-12.5) % Eosinophils % (0.7-5.8) % Basophils % (0.1-1.2) % Absolute Granulocytes (1.56-6.13) x10^3/uL Basophils # (0.01-0.08) x10^3/uL Sodium 138 (135-145) mmol/L Potassium 4.1 (3.5-5.1) mmol/L Chloride 100 (98-107) mmol/L Carbon Dioxide 26 (22-30) mmol/L Anion Gap 15.9 H (5-15) MEQ/L BUN 19 H (7-17) mg/dL Creatinine 1.46 H (0.52-1.04) mg/dL Estimated GFR 35.7 ML/MIN Glucose 159 H (74-106) mg/dL Calcium 9.8 (8.4-10.2) mg/dL Total Bilirubin 0.20 (0.2-1.3) mg/dL AST 30 (14-36) U/L ALT 17 (0-35) U/L Alkaline Phosphatase 58 (38-126) U/L Troponin I < 0.012 (0.000-0.033) ng/mL NT-Pro-B Natriuret Pep 187 (<300) pg/mL Serum Total Protein 6.8 (6.3-8.2) g/dL Albumin 4.2 (3.5-5.0) g/dL Urine Color (Yellow) Urine Appearance (Clear) Urine pH (4.6-8.0) Ur Specific [place] (1.005-1.030) Urine Protein (Negative) Urine Glucose (UA) (Negative) mg/dL Urine Ketones (Negative) Urine Blood (Negative) Urine Nitrite (Negative) Urine Bilirubin (Negative) Urine Urobilinogen (0.2) mg/dL Ur Leukocyte Esterase (Negative) U Hyaline Cast (Auto) (0-2) /LPF Urine Microscopic RBC (0-5) /HPF Urine Microscopic WBC (0-5) /HPF Ur Epithelial Cells (None Seen) /HPF Urine Bacteria (None Seen) /HPF Urine Culture Reflexed (NO) Influenza Type A Ag NEGATIVE (NEGATIVE) Influenza Type B Ag NEGATIVE (NEGATIVE) RSV (PCR) NEGATIVE (NEGATIVE) SARS-CoV-2 (PCR) NEGATIVE (NEGATIVE) 01/10/25 01/10/25 Range/Units 18:55 18:54 WBC 8.2 (3.98-10.04) x10^3/uL RBC 3.64 L (3.93-5.22) x10^6/uL Hgb 11.6 (11.2-15.7) g/dL Hct 37.0 (34.1-44.9) % MCV 101.6 H (79.4-94.8) fL MCH 31.9 (25.6-32.2) pg MCHC 31.4 L (32.2-35.5) g/dL RDW 14.8 H (11.7-14.4) % Plt Count 265 (182-369) x10^3/uL MPV 9.2 L (9.4-12.3) fL Gran % 54.4 (34.0-71.1) % Immature Gran % (Auto) 0.2 (0.001-0.429) % Nucleat RBC Rel Count 0.0 (0.00-0.2) % Eos # (Auto) 1.39 H (0.04-0.36) x10^3/uL Immature Gran # (Auto) 0.02 (0.001-0.031) x10^3u/L Absolute Lymphs (auto) 1.60 (1.18-3.74) x10^3/uL Absolute Monos (auto) 0.64 (0.24-0.86) x10^3/uL Absolute Nucleated RBC 0.00 (0.00-0.012) x10^3u/L Lymphocytes % 19.4 (19.3-51.7) % Monocytes % 7.8 (4.7-12.5) % Eosinophils % 16.9 H (0.7-5.8) % Basophils % 1.3 H (0.1-1.2) % Absolute Granulocytes 4.47 (1.56-6.13) x10^3/uL Basophils # 0.11 H (0.01-0.08) x10^3/uL Sodium (135-145) mmol/L Potassium (3.5-5.1) mmol/L Chloride (98-107) mmol/L Carbon Dioxide (22-30) mmol/L Anion Gap (5-15) MEQ/L BUN (7-17) mg/dL Creatinine (0.52-1.04) mg/dL Estimated GFR ML/MIN Glucose (74-106) mg/dL Calcium (8.4-10.2) mg/dL Total Bilirubin (0.2-1.3) mg/dL AST (14-36) U/L ALT (0-35) U/L Alkaline Phosphatase (38-126) U/L Troponin I (0.000-0.033) ng/mL NT-Pro-B Natriuret Pep (<300) pg/mL Serum Total Protein (6.3-8.2) g/dL Albumin (3.5-5.0) g/dL Urine Color Yellow (Yellow) Urine Appearance Clear (Clear) Urine pH 6.5 (4.6-8.0) Ur Specific [place] 1.010 (1.005-1.030) Urine Protein Negative (Negative) Urine Glucose (UA) Negative (Negative) mg/dL Urine Ketones Negative (Negative) Urine Blood Negative (Negative) Urine Nitrite Negative (Negative) Urine Bilirubin Negative (Negative) Urine Urobilinogen 0.2 (0.2) mg/dL Ur Leukocyte Esterase Negative (Negative) U Hyaline Cast (Auto) NONE SEEN (0-2) /LPF Urine Microscopic RBC 0-2 (0-5) /HPF Urine Microscopic WBC 0-2 (0-5) /HPF Ur Epithelial Cells None Seen (None Seen) /HPF Urine Bacteria None Seen (None Seen) /HPF Urine Culture Reflexed NO (NO) Influenza Type A Ag (NEGATIVE) Influenza Type B Ag (NEGATIVE) RSV (PCR) (NEGATIVE) SARS-CoV-2 (PCR) (NEGATIVE) - Progress Progress: improved Air Movement: good Progress Note: 01/10/25 20:40 Patient is a 84-year-old female history of coronary artery disease DVT COPD obstructive sleep apnea depression breast cancer presents to our ED for evaluation of shortness of breath History obtained from patient and EMS. Differential diagnosis includes COPD exacerbation, asthma, CHF, pneumonia X-ray of chest independently reviewed and interpreted by Dr. Marlow. This is a preliminary read. Formal read pending. Physical exam reveals audible wheezing. Laboratory workup essentially nonremarkable. Chronic renal sufficiency observed. Patient received DuoNeb treatment Solu-Medrol 125, blood cultures obtained and antibiotics administered. Patient will be admitted for further evaluation and treatment. Plan of care discussed with patient. She agrees to admission at [facility] for further evaluation and treatment. Portions of this note were created with voice recognition technology. There may be grammatical, spelling, punctuation or sound alike errors Complexity of problems addressed is moderate acute complicated. No critical care time. Complexity of data reviewed and analyzed as extensive. Test ordered chest reviewed results analyzed and correlated clinically with history and physical exam. Risk of complication and or risk of morbidity/mortality of patient management is high. Patient requires hospitalization for further evaluation and treatment. Vital stable. Time spent to admit patient approximately 20 minutes. Plan of care established for shared decision making. No social determinants of health present to impede follow-up. Portions of this note were created with voice recognition technology. There may be grammatical, spelling, punctuation or sound alike errors . 01/10/25 20:42 Hospitalist accepts admission at 8:49 PM 01/10/25 20:48 Blood Culture(s) Obtained: Yes Antibiotics given: Yes Counseled pt/family regarding: lab results, diagnosis, rad results - Departure Departure Disposition: Observation Clinical Impression: COPD exacerbation, Hypoxia Condition: Stable Critical Care Time: No Referrals: CLAIRE MAY MD [Primary Care Provider, FAMILY PRACTICE] - Follow up/PCP as directed Instructions: Chronic Obstructive Pulmonary Disease
[2025-01-10] MEDS ORDERED: ZITHROMAX IV IV ONE (19:27)
[2025-01-10] MEDS: ZITHROMAX IV*** 500 MG in Sodium Chloride 0.9% 250 ML 250 ML IV STA (19:28)
[2025-01-10 19:29] LABS: BASOPHIL % 1.3 % (0.1-1.2); Basophil (Absolute #) 0.11 x10^3/uL (0.01-0.08); Eosinophil (Absolute #) 1.39 x10^3/uL (0.04-0.36); Hematocrit 37.0 % (34.1-44.9); Hemoglobin 11.6 g/dL (11.2-15.7); IMMATURE GRAN # 0.02 x10^3u/L (0.001-0.031); IMMATURE GRAN % 0.2 % (0.001-0.429); Lymphocyte (Absolute #) 1.60 x10^3/uL (1.18-3.74); Mean Corpuscular Hemoglobin 31.9 pg (25.6-32.2); Mean Corpuscular Hgb Concent. 31.4 g/dL (32.2-35.5); Monocyte (Absolute #) 0.64 x10^3/uL (0.24-0.86); NUCLEATED RBC # 0.00 x10^3u/L (0.00-0.012); NUCLEATED RBC % 0.0 % (0.00-0.2); Platelet Count 265 x10^3/uL (182-369); Red Blood Count 3.64 x10^6/uL (3.93-5.22); White Blood Count 8.2 x10^3/uL (3.98-10.04)
[2025-01-10 19:58] LABS: Calcium 9.8 mg/dL (8.4-10.2); Carbon Dioxide 26.0 mmol/L (22-30); Creatinine 1 1.46 mg/dL (0.52-1.04); EST GLOMERULAR FILTRATION RATE 35.7 ML/MIN; Glucose 159.0 mg/dL (74-106); Potassium 4.1 mmol/L (3.5-5.1); SGOT/AST 30.0 U/L (14-36); SGPT/ALT 17.0 U/L (0-35); Total Protein 6.8 g/dL (6.3-8.2)
[2025-01-10 20:05] LABS: INFLUENZA A NEGATIVE (NEGATIVE); INFLUENZA B NEGATIVE (NEGATIVE); RESPIRATORY SYNCTIAL VIRUS NEGATIVE (NEGATIVE); SARS-CoV-2 Xpert Express NEGATIVE (NEGATIVE)
[2025-01-10 20:10] LABS: NT PRO BNPII 187 pg/mL (<300); TROPONIN < 0.012 ng/mL (0.000-0.033)
[2025-01-10 20:28] LABS: Glucose, Urine Negative (Negative); Protein,Urine Dip Negative (Negative)
[2025-01-10 20:36] LABS: RBC 0-2 /HPF (0-5); WBC 0-2 /HPF (0-5)
[2025-01-10] MEDS: ROCEPHIN 2 GM/100 ML NACL 2 GM/100 ML IVPB IV ONE (20:42)
[2025-01-10] MEDS ORDERED: ROCEPHIN 2 GM/100 ML NACL 2 GM/100 ML IVPB IV ONE (20:42)
--- NOTE | 2025-01-10 21:58 | PCM.HP ---
History of Present Illness - Chief Complaint Chief Complaint: COPD exacerbation History of Present Illness: is a 84 year old female with a history of COPD, GLORIA, DVT on Xarelto, CAD who presents to ED complaining of SOB. She reports SOB started yesterday. She has a cough productive of yellow/brown sputum. She denies any fever or chills. She has heard herself wheezing. She denies chest pain. She does wear home oxygen at 2L with CPAP at night and sometimes during the day. She c urrently is on 3L O2. CXR did not show any acute process. She was given Duoneb, Rocephin and Azithromycin in ED. She does feel weak overall. - Review of Systems Eyes: No Symptoms Ears, Nose, & Throat: No Symptoms Respiratory: Cough, Short Of Breath Cardiac: No Symptoms Abdominal/Gastrointestinal: No Symptoms Genitourinary Symptoms: No Symptoms Musculoskeletal: No Symptoms Skin: No Symptoms Neurological: No Symptoms Psychological: No Symptoms Endocrine: No Symptoms Hematologic/Lymphatic: No Symptoms Medications & Allergies Home Medications: Home Medication List Allopurinol 300 mg [Zyloprim 300 mg] 300 mg PO DAILY 11/01/24 [History Confirmed 01/10/25] Levothyroxine Sodium 112 Mcg [Synthroid 112 Mcg] 112 mcg PO DAILY 11/01/24 [History Confirmed 01/10/25] Multivit-Min/Iron/Folic/Lutein [Centrum Silver Women Tablet] 1 each PO DAILY 11/01/24 [History Confirmed 01/10/25] Pantoprazole Sodium [Protonix] 40 mg PO .NOON 11/01/24 [History Confirmed 01/10/25] Rivaroxaban [Xarelto] 20 mg PO HS 11/01/24 [History Confirmed 01/10/25] Simvastatin 40 mg PO HS 11/01/24 [History Confirmed 01/10/25] Spironolactone 25 mg PO DAILY 11/01/24 [History Confirmed 01/10/25] Torsemide 20 mg [Demadex 20 mg] 20 mg PO DAILY 11/01/24 [History Confirmed 01/10/25] Tramadol HCl 25 mg PO DAILY 11/01/24 [History Confirmed 01/10/25] Tramadol HCl 50 mg [Ultram 50 mg] 50 mg PO HS 11/01/24 [History Confirmed 01/10/25] Vilazodone HCl 20 mg PO DAILY 11/01/24 [History Confirmed 01/10/25] Arformoterol Tartrate [Brovana] 1 vial IH BID 01/10/25 [History Confirmed 01/10/25] Revefenacin [Yupelri] 1 vial IH DAILY 01/10/25 [History Confirmed 01/10/25] Allergies/Adverse Reactions: Allergies Allergy/AdvReac Type Severity Reaction Status Date / Time No Known Drug Allergies Allergy Verified 01/10/25 18:57 - Past Medical History Past Medical History: Yes Neurological History: No Pertinent History ENT History: No Pertinent History Cardiac History: Coronary Artery Disease, Deep Vein Thrombosis Respiratory History: COPD, Sleep Apnea, Other Endocrine Medical History: No Pertinent History Musculoskelatal History: No Pertinent History GI Medical History: GERD History: No Pertinent History Pyscho-Social History: Depression Reproductive Disorders: Breast Cancer - Past Surgical History Past Surgical History: Yes Neuro Surgical History: No Pertinent History Cardiac History: No Pertinent History Respiratory Surgery: No Pertinent History GI Surgical History: No Pertinent History Genitourinary Surgical Hx: No Pertinent History Musculskeletal Surgical Hx: Orthopedic Surgery Female Surgical History: Hysterectomy Other Surgical History: Patient states. 2 knee replacements and veins stripped in legs, left elbow broken in 2018 Significant Family History: no pertinent family hx - Social History Smoking Status: Former smoker Exposure to second hand smoke: No Alcohol: None Drug Use: none - Social Determinants of Health Will the patient participate in the screening: Yes Do you worry about a steady place to live?: No Do you have any problems with any of the following?: No known problems In the past 12 months,have you had to go without utilities?: No Have you or anyone in your house had to go without enough: No Transportation Issues: No Has anyone in your support network made you feel unsafe?: No Does the patient want assistance with any of the above?: No - Physical Exam Vital Signs: Vital Signs - 24 hr Temp Pulse Resp BP BP Pulse Ox 01/10/25 21:00 83 14 96/77 96 01/10/25 20:50 88 14 96 01/10/25 20:49 96 01/10/25 20:40 86 17 96 01/10/25 20:31 82 20 97 01/10/25 20:00 90 18 148/77 98 01/10/25 19:59 97 H 20 145/81 96 01/10/25 19:36 82 22 121/80 96 01/10/25 19:30 95 H 27 H 121/80 96 01/10/25 19:01 80 16 96 01/10/25 19:00 82 23 124/85 95 01/10/25 18:53 98 01/10/25 18:36 98 F 82 16 139/73 98 01/10/25 18:31 74 18 139/73 100 General Appearance: no apparent distress, alert Neurologic Exam: alert, oriented x 3, center medical specialist II-XII nml as tested, No sensory deficit Eye Exam: PERRL/EOMI, pale conjunctivae, No scleral icterus Neck Exam: normal inspection, No JVD Respiratory Exam: diminished breath sounds, wheezing Cardiovascular Exam: regular rate/rhythm, normal heart sounds Gastrointestinal/Abdomen Exam: soft, normal bowel sounds, tenderness Extremity Exam: normal inspection, normal range of motion Skin Exam: normal color, warm, dry Results - Labs Lab/Micro Results: Lab Results-Last 24 Hours 01/10/25 01/10/25 01/10/25 Range/Units 18:54 18:55 18:55 WBC 8.2 (3.98-10.04) x10^3/uL RBC 3.64 L (3.93-5.22) x10^6/uL Hgb 11.6 (11.2-15.7) g/dL Hct 37.0 (34.1-44.9) % MCV 101.6 H (79.4-94.8) fL MCH 31.9 (25.6-32.2) pg MCHC 31.4 L (32.2-35.5) g/dL RDW 14.8 H (11.7-14.4) % Plt Count 265 (182-369) x10^3/uL MPV 9.2 L (9.4-12.3) fL Gran % 54.4 (34.0-71.1) % Immature Gran % (Auto) 0.2 (0.001-0.429) % Nucleat RBC Rel Count 0.0 (0.00-0.2) % Eos # (Auto) 1.39 H (0.04-0.36) x10^3/uL Immature Gran # (Auto) 0.02 (0.001-0.031) x10^3u/L Absolute Lymphs (auto) 1.60 (1.18-3.74) x10^3/uL Absolute Monos (auto) 0.64 (0.24-0.86) x10^3/uL Absolute Nucleated RBC 0.00 (0.00-0.012) x10^3u/L Lymphocytes % 19.4 (19.3-51.7) % Monocytes % 7.8 (4.7-12.5) % Eosinophils % 16.9 H (0.7-5.8) % Basophils % 1.3 H (0.1-1.2) % Absolute Granulocytes 4.47 (1.56-6.13) x10^3/uL Basophils # 0.11 H (0.01-0.08) x10^3/uL Sodium 138 (135-145) mmol/L Potassium 4.1 (3.5-5.1) mmol/L Chloride 100 (98-107) mmol/L Carbon Dioxide 26 (22-30) mmol/L Anion Gap 15.9 H (5-15) MEQ/L BUN 19 H (7-17) mg/dL Creatinine 1.46 H (0.52-1.04) mg/dL Estimated GFR 35.7 ML/MIN Glucose 159 H (74-106) mg/dL Calcium 9.8 (8.4-10.2) mg/dL Total Bilirubin 0.20 (0.2-1.3) mg/dL AST 30 (14-36) U/L ALT 17 (0-35) U/L Alkaline Phosphatase 58 (38-126) U/L Troponin I (0.000-0.033) ng/mL NT-Pro-B Natriuret Pep (<300) pg/mL Serum Total Protein 6.8 (6.3-8.2) g/dL Albumin 4.2 (3.5-5.0) g/dL Urine Color Yellow (Yellow) Urine Appearance Clear (Clear) Urine pH 6.5 (4.6-8.0) Ur Specific [place] 1.010 (1.005-1.030) Urine Protein Negative (Negative) Urine Glucose (UA) Negative (Negative) mg/dL Urine Ketones Negative (Negative) Urine Blood Negative (Negative) Urine Nitrite Negative (Negative) Urine Bilirubin Negative (Negative) Urine Urobilinogen 0.2 (0.2) mg/dL Ur Leukocyte Esterase Negative (Negative) U Hyaline Cast (Auto) NONE SEEN (0-2) /LPF Urine Microscopic RBC 0-2 (0-5) /HPF Urine Microscopic WBC 0-2 (0-5) /HPF Ur Epithelial Cells None Seen (None Seen) /HPF Urine Bacteria None Seen (None Seen) /HPF Urine Culture Reflexed NO (NO) Influenza Type A Ag (NEGATIVE) Influenza Type B Ag (NEGATIVE) RSV (PCR) (NEGATIVE) SARS-CoV-2 (PCR) (NEGATIVE) 01/10/25 01/10/25 Range/Units 18:55 19:14 WBC (3.98-10.04) x10^3/uL RBC (3.93-5.22) x10^6/uL Hgb (11.2-15.7) g/dL Hct (34.1-44.9) % MCV (79.4-94.8) fL MCH (25.6-32.2) pg MCHC (32.2-35.5) g/dL RDW (11.7-14.4) % Plt Count (182-369) x10^3/uL MPV (9.4-12.3) fL Gran % (34.0-71.1) % Immature Gran % (Auto) (0.001-0.429) % Nucleat RBC Rel Count (0.00-0.2) % Eos # (Auto) (0.04-0.36) x10^3/uL Immature Gran # (Auto) (0.001-0.031) x10^3u/L Absolute Lymphs (auto) (1.18-3.74) x10^3/uL Absolute Monos (auto) (0.24-0.86) x10^3/uL Absolute Nucleated RBC (0.00-0.012) x10^3u/L Lymphocytes % (19.3-51.7) % Monocytes % (4.7-12.5) % Eosinophils % (0.7-5.8) % Basophils % (0.1-1.2) % Absolute Granulocytes (1.56-6.13) x10^3/uL Basophils # (0.01-0.08) x10^3/uL Sodium (135-145) mmol/L Potassium (3.5-5.1) mmol/L Chloride (98-107) mmol/L Carbon Dioxide (22-30) mmol/L Anion Gap (5-15) MEQ/L BUN (7-17) mg/dL Creatinine (0.52-1.04) mg/dL Estimated GFR ML/MIN Glucose (74-106) mg/dL Calcium (8.4-10.2) mg/dL Total Bilirubin (0.2-1.3) mg/dL AST (14-36) U/L ALT (0-35) U/L Alkaline Phosphatase (38-126) U/L Troponin I < 0.012 (0.000-0.033) ng/mL NT-Pro-B Natriuret Pep 187 (<300) pg/mL Serum Total Protein (6.3-8.2) g/dL Albumin (3.5-5.0) g/dL Urine Color (Yellow) Urine Appearance (Clear) Urine pH (4.6-8.0) Ur Specific [place] (1.005-1.030) Urine Protein (Negative) Urine Glucose (UA) (Negative) mg/dL Urine Ketones (Negative) Urine Blood (Negative) Urine Nitrite (Negative) Urine Bilirubin (Negative) Urine Urobilinogen (0.2) mg/dL Ur Leukocyte Esterase (Negative) U Hyaline Cast (Auto) (0-2) /LPF Urine Microscopic RBC (0-5) /HPF Urine Microscopic WBC (0-5) /HPF Ur Epithelial Cells (None Seen) /HPF Urine Bacteria (None Seen) /HPF Urine Culture Reflexed (NO) Influenza Type A Ag NEGATIVE (NEGATIVE) Influenza Type B Ag NEGATIVE (NEGATIVE) RSV (PCR) NEGATIVE (NEGATIVE) SARS-CoV-2 (PCR) NEGATIVE (NEGATIVE) - Radiology Impressions Radiology Exams & Impressions: Radiology Procedures Category Date Time Status CHEST 1 VIEW (PORTABLE) Stat Exams 01/10/25 19:19 Taken Assessment/Plan (1) COPD exacerbation Current Visit: Yes Status: Acute Assessment & Plan: Continue Rocephin and Azithromycin Start Solumedrol 60mg IV Q8hr Duonebs QID and Q2hr prn Continue oxygen Will Ask PT and OT to eval and treat Code(s): J44.1 - CHRONIC OBSTRUCTIVE PULMONARY DISEASE W (ACUTE) EXACERBATION (2) Acute respiratory failure with hypoxia Current Visit: No Status: Acute Assessment & Plan: Currently on 3L O2. Baseline is 2L at night and sometimes during day. Code(s): J96.01 - ACUTE RESPIRATORY FAILURE WITH HYPOXIA (3) History of DVT (deep vein thrombosis) Current Visit: No Status: Acute Assessment & Plan: Continue Xarelto Code(s): Z86.718 - PERSONAL HISTORY OF OTHER VENOUS THROMBOSIS AND EMBOLISM Telemedicine Encounter - Telemedicine Encounter Telemedicine Encounter: "The entirety of this encounter was performed via Telemedicine" This visit was performed using real-time audio and video connection between my location and thepatients locationwith the assistance of a surrogateat the patients location. Written or verbal consent was obtained from the patient/guardian to perform this visit usings[employer] Limitedtelemedicine technology. Any patient questions regarding the telemedicine interaction were answered.
[2025-01-10] MEDS ORDERED: Zofran 4 MG/2 ML VIAL IV PRN (22:20)
[2025-01-10] MEDS: DUONEB 0.5-3 MG/3 ml Neb IH PRN (22:30)
[2025-01-10] MEDS ORDERED: ULTRAM 50 MG ONE (23:38)
[2025-01-10] MEDS: ULTRAM 50 MG PO SCH (23:39)
[2025-01-10] MEDS: TYLENOL EXTRA STRENGTH 500 MG PO ONE (23:40)
[2025-01-10] MEDS: XARELTO 10 MG TABLET PO SCH (23:53)
[2025-01-10] MEDS: ZOCOR 20MG PO SCH (23:53)
[2025-01-10] MEDS: BENADRYL 25 MG CAPSULE PO ONE (23:53)
[2025-01-11 04:30] LABS: Hematocrit 33.2 % (34.1-44.9); Hemoglobin 10.4 g/dL (11.2-15.7); Mean Corpuscular Hemoglobin 31.6 pg (25.6-32.2); Mean Corpuscular Hgb Concent. 31.3 g/dL (32.2-35.5); Platelet Count 229 x10^3/uL (182-369); Red Blood Count 3.29 x10^6/uL (3.93-5.22); White Blood Count 9.0 x10^3/uL (3.98-10.04)
[2025-01-11 04:54] LABS: Calcium 9.6 mg/dL (8.4-10.2); Carbon Dioxide 31.0 mmol/L (22-30); Creatinine 1 1.43 mg/dL (0.52-1.04); EST GLOMERULAR FILTRATION RATE 36.6 ML/MIN; Glucose 100.0 mg/dL (74-106); Potassium 4.0 mmol/L (3.5-5.1)
--- NOTE | 2025-01-11 05:53 | PCM.NOTE ---
Date and Time: 01/11/25 0547 Subjective Assessment: Mrs. Fajardo is an 84-year-old female with a significant medical history of chronic obstructive pulmonary disease (COPD), obstructive sleep apnea (GLORIA) on CPAP, prior deep vein thrombosis (DVT) on Xarelto, coronary artery disease (CAD), depression, and remote breast cancer, who [facility], [facility], with acute shortness of breath and a productive cough of yellow-brown sputum that began the day prior. She denied fever or chills but reported increased wheezing and generalized weakness. She uses 2 L of supplemental oxygen at baseline, primarily at night with CPAP and occasionally during the day, but was requiring 3 L upon presentation. In the emergency department, her vital signs were stable, and oxygen saturation was 96% on 2 L nasal cannula. A chest X-ray showed no acute infiltrate or consolidation. Laboratory studies demonstrated macrocytic anemia with hemoglobin 10.4; white blood cell count and platelets were within normal limits. Basic metabolic panel revealed an elevated anion gap of 15.9 that normalized to 9.6 by January 11. Creatinine was 1.46 on admission and improved slightly to 1.43 by the next day, consistent with her baseline of approximately 1.6. Troponins (3) were negative, and BNP was within normal limits. Urinalysis and respiratory pathogen panel were negative. The patient received azithromycin, ceftriaxone, Duonebs, and IV fluids in the emergency department; no corticosteroids were administered initially. She was admitted for management of COPD exacerbation and associated acute respiratory failure with hypoxia. 01/11/25: Met with patient bedside. Endorses improvement in dyspnea. Productive cough with yellow sputum and exp wheezing continues. Patient currently requiring 3L of continuous oxygen. Plan for continued solumedrol, IV abx. Denies fever, cp, abdominal pain, V[place]ADARES, dizziness, N/V/D. - Review of Systems Constitutional: Weakness Eyes: No Symptoms Ears, Nose, & Throat: No Symptoms Respiratory: Cough, Short Of Breath, Wheezing Cardiac: No Symptoms Abdominal/Gastrointestinal: No Symptoms Genitourinary Symptoms: No Symptoms Musculoskeletal: No Symptoms Skin: No Symptoms Neurological: No Symptoms Psychological: No Symptoms Endocrine: No Symptoms Hematologic/Lymphatic: No Symptoms Immunological/Allergic: No Symptoms Objective Exam General Appearance: no apparent distress Neurologic Exam: alert, oriented x 3, cooperative Skin Exam: normal color Eye Exam: PERRL Ears, Nose, Throat Exam: normal ENT inspection Neck Exam: normal inspection Respiratory Exam: diminished breath sounds, crackles/rales, wheezing Cardiovascular Exam: regular rate/rhythm, normal heart sounds Gastrointestinal/Abdomen Exam: soft, normal bowel sounds Extremity Exam: normal inspection Back Exam: normal inspection Pelvic Exam: deferred Rectal Exam: deferred Objective Data Vital Signs: Vital Signs - 24 hr Temp Pulse Resp BP BP Pulse Ox 01/11/25 04:00 98.9 F 82 16 125/60 90 L 01/11/25 00:00 97.0 F 84 22 110/53 95 01/10/25 23:14 48 L 22 96 01/10/25 22:04 97.6 F 82 16 129/60 95 01/10/25 21:00 83 14 96/77 96 01/10/25 20:50 88 14 96 01/10/25 20:49 96 01/10/25 20:40 86 17 96 01/10/25 20:31 82 20 97 01/10/25 20:00 90 18 148/77 98 01/10/25 19:59 97 H 20 145/81 96 01/10/25 19:36 82 22 121/80 96 01/10/25 19:30 95 H 27 H 121/80 96 01/10/25 19:01 80 16 96 01/10/25 19:00 82 23 124/85 95 01/10/25 18:53 98 01/10/25 18:36 98 F 82 16 139/73 98 01/10/25 18:31 74 18 139/73 100 Pain Assessment - Last Documented Pain Intensity 8 Intake and Output: Intake & Output 01/08/25 01/09/25 01/10/25 01/11/25 11:59 11:59 11:59 11:59 Intake Total 240 Balance 240 Weight 124 kg Lab Results: Lab Results-Last 24 Hours 01/10/25 01/10/25 01/10/25 Range/Units 18:54 18:55 18:55 WBC 8.2 (3.98-10.04) x10^3/uL RBC 3.64 L (3.93-5.22) x10^6/uL Hgb 11.6 (11.2-15.7) g/dL Hct 37.0 (34.1-44.9) % MCV 101.6 H (79.4-94.8) fL MCH 31.9 (25.6-32.2) pg MCHC 31.4 L (32.2-35.5) g/dL RDW 14.8 H (11.7-14.4) % Plt Count 265 (182-369) x10^3/uL MPV 9.2 L (9.4-12.3) fL Gran % 54.4 (34.0-71.1) % Immature Gran % (Auto) 0.2 (0.001-0.429) % Nucleat RBC Rel Count 0.0 (0.00-0.2) % Eos # (Auto) 1.39 H (0.04-0.36) x10^3/uL Immature Gran # (Auto) 0.02 (0.001-0.031) x10^3u/L Absolute Lymphs (auto) 1.60 (1.18-3.74) x10^3/uL Absolute Monos (auto) 0.64 (0.24-0.86) x10^3/uL Absolute Nucleated RBC 0.00 (0.00-0.012) x10^3u/L Lymphocytes % 19.4 (19.3-51.7) % Monocytes % 7.8 (4.7-12.5) % Eosinophils % 16.9 H (0.7-5.8) % Basophils % 1.3 H (0.1-1.2) % Absolute Granulocytes 4.47 (1.56-6.13) x10^3/uL Basophils # 0.11 H (0.01-0.08) x10^3/uL Sodium 138 (135-145) mmol/L Potassium 4.1 (3.5-5.1) mmol/L Chloride 100 (98-107) mmol/L Carbon Dioxide 26 (22-30) mmol/L Anion Gap 15.9 H (5-15) MEQ/L BUN 19 H (7-17) mg/dL Creatinine 1.46 H (0.52-1.04) mg/dL Estimated GFR 35.7 ML/MIN Glucose 159 H (74-106) mg/dL Calcium 9.8 (8.4-10.2) mg/dL Total Bilirubin 0.20 (0.2-1.3) mg/dL AST 30 (14-36) U/L ALT 17 (0-35) U/L Alkaline Phosphatase 58 (38-126) U/L Troponin I (0.000-0.033) ng/mL NT-Pro-B Natriuret Pep (<300) pg/mL Serum Total Protein 6.8 (6.3-8.2) g/dL Albumin 4.2 (3.5-5.0) g/dL Urine Color Yellow (Yellow) Urine Appearance Clear (Clear) Urine pH 6.5 (4.6-8.0) Ur Specific [place] 1.010 (1.005-1.030) Urine Protein Negative (Negative) Urine Glucose (UA) Negative (Negative) mg/dL Urine Ketones Negative (Negative) Urine Blood Negative (Negative) Urine Nitrite Negative (Negative) Urine Bilirubin Negative (Negative) Urine Urobilinogen 0.2 (0.2) mg/dL Ur Leukocyte Esterase Negative (Negative) U Hyaline Cast (Auto) NONE SEEN (0-2) /LPF Urine Microscopic RBC 0-2 (0-5) /HPF Urine Microscopic WBC 0-2 (0-5) /HPF Ur Epithelial Cells None Seen (None Seen) /HPF Urine Bacteria None Seen (None Seen) /HPF Urine Culture Reflexed NO (NO) Influenza Type A Ag (NEGATIVE) Influenza Type B Ag (NEGATIVE) RSV (PCR) (NEGATIVE) SARS-CoV-2 (PCR) (NEGATIVE) 01/10/25 01/10/25 01/10/25 Range/Units 18:55 19:14 23:43 WBC (3.98-10.04) x10^3/uL RBC (3.93-5.22) x10^6/uL Hgb (11.2-15.7) g/dL Hct (34.1-44.9) % MCV (79.4-94.8) fL MCH (25.6-32.2) pg MCHC (32.2-35.5) g/dL RDW (11.7-14.4) % Plt Count (182-369) x10^3/uL MPV (9.4-12.3) fL Gran % (34.0-71.1) % Immature Gran % (Auto) (0.001-0.429) % Nucleat RBC Rel Count (0.00-0.2) % Eos # (Auto) (0.04-0.36) x10^3/uL Immature Gran # (Auto) (0.001-0.031) x10^3u/L Absolute Lymphs (auto) (1.18-3.74) x10^3/uL Absolute Monos (auto) (0.24-0.86) x10^3/uL Absolute Nucleated RBC (0.00-0.012) x10^3u/L Lymphocytes % (19.3-51.7) % Monocytes % (4.7-12.5) % Eosinophils % (0.7-5.8) % Basophils % (0.1-1.2) % Absolute Granulocytes (1.56-6.13) x10^3/uL Basophils # (0.01-0.08) x10^3/uL Sodium (135-145) mmol/L Potassium (3.5-5.1) mmol/L Chloride (98-107) mmol/L Carbon Dioxide (22-30) mmol/L Anion Gap (5-15) MEQ/L BUN (7-17) mg/dL Creatinine (0.52-1.04) mg/dL Estimated GFR ML/MIN Glucose (74-106) mg/dL Calcium (8.4-10.2) mg/dL Total Bilirubin (0.2-1.3) mg/dL AST (14-36) U/L ALT (0-35) U/L Alkaline Phosphatase (38-126) U/L Troponin I < 0.012 < 0.012 (0.000-0.033) ng/mL NT-Pro-B Natriuret Pep 187 (<300) pg/mL Serum Total Protein (6.3-8.2) g/dL Albumin (3.5-5.0) g/dL Urine Color (Yellow) Urine Appearance (Clear) Urine pH (4.6-8.0) Ur Specific [place] (1.005-1.030) Urine Protein (Negative) Urine Glucose (UA) (Negative) mg/dL Urine Ketones (Negative) Urine Blood (Negative) Urine Nitrite (Negative) Urine Bilirubin (Negative) Urine Urobilinogen (0.2) mg/dL Ur Leukocyte Esterase (Negative) U Hyaline Cast (Auto) (0-2) /LPF Urine Microscopic RBC (0-5) /HPF Urine Microscopic WBC (0-5) /HPF Ur Epithelial Cells (None Seen) /HPF Urine Bacteria (None Seen) /HPF Urine Culture Reflexed (NO) Influenza Type A Ag NEGATIVE (NEGATIVE) Influenza Type B Ag NEGATIVE (NEGATIVE) RSV (PCR) NEGATIVE (NEGATIVE) SARS-CoV-2 (PCR) NEGATIVE (NEGATIVE) 01/11/25 01/11/25 01/11/25 Range/Units 04:15 04:15 04:15 WBC 9.0 (3.98-10.04) x10^3/uL RBC 3.29 L (3.93-5.22) x10^6/uL Hgb 10.4 L (11.2-15.7) g/dL Hct 33.2 L (34.1-44.9) % MCV 100.9 H (79.4-94.8) fL MCH 31.6 (25.6-32.2) pg MCHC 31.3 L (32.2-35.5) g/dL RDW 15.0 H (11.7-14.4) % Plt Count 229 (182-369) x10^3/uL MPV 9.1 L (9.4-12.3) fL Gran % (34.0-71.1) % Immature Gran % (Auto) (0.001-0.429) % Nucleat RBC Rel Count (0.00-0.2) % Eos # (Auto) (0.04-0.36) x10^3/uL Immature Gran # (Auto) (0.001-0.031) x10^3u/L Absolute Lymphs (auto) (1.18-3.74) x10^3/uL Absolute Monos (auto) (0.24-0.86) x10^3/uL Absolute Nucleated RBC (0.00-0.012) x10^3u/L Lymphocytes % (19.3-51.7) % Monocytes % (4.7-12.5) % Eosinophils % (0.7-5.8) % Basophils % (0.1-1.2) % Absolute Granulocytes (1.56-6.13) x10^3/uL Basophils # (0.01-0.08) x10^3/uL Sodium 137 (135-145) mmol/L Potassium 4.0 (3.5-5.1) mmol/L Chloride 101 (98-107) mmol/L Carbon Dioxide 31 H (22-30) mmol/L Anion Gap 9.6 (5-15) MEQ/L BUN 19 H (7-17) mg/dL Creatinine 1.43 H (0.52-1.04) mg/dL Estimated GFR 36.6 ML/MIN Glucose 100 (74-106) mg/dL Calcium 9.6 (8.4-10.2) mg/dL Total Bilirubin (0.2-1.3) mg/dL AST (14-36) U/L ALT (0-35) U/L Alkaline Phosphatase (38-126) U/L Troponin I < 0.012 (0.000-0.033) ng/mL NT-Pro-B Natriuret Pep (<300) pg/mL Serum Total Protein (6.3-8.2) g/dL Albumin (3.5-5.0) g/dL Urine Color (Yellow) Urine Appearance (Clear) Urine pH (4.6-8.0) Ur Specific [place] (1.005-1.030) Urine Protein (Negative) Urine Glucose (UA) (Negative) mg/dL Urine Ketones (Negative) Urine Blood (Negative) Urine Nitrite (Negative) Urine Bilirubin (Negative) Urine Urobilinogen (0.2) mg/dL Ur Leukocyte Esterase (Negative) U Hyaline Cast (Auto) (0-2) /LPF Urine Microscopic RBC (0-5) /HPF Urine Microscopic WBC (0-5) /HPF Ur Epithelial Cells (None Seen) /HPF Urine Bacteria (None Seen) /HPF Urine Culture Reflexed (NO) Influenza Type A Ag (NEGATIVE) Influenza Type B Ag (NEGATIVE) RSV (PCR) (NEGATIVE) SARS-CoV-2 (PCR) (NEGATIVE) Radiology Exams: Radiology Procedures Category Date Time Status CHEST 1 VIEW (PORTABLE) Stat Exams 01/10/25 19:19 Taken Medications: Medications Generic Name Dose Route Start Last Admin Trade Name Freq PRN Reason Stop Dose Admin Acetaminophen 650 mg 01/10/25 22:20 Acetaminophen 325 Mg Tablet PO 02/09/25 22:19 Q4H PRN PRN PAIN, FEVER, HEADACHE Acetaminophen 1,000 mg 01/10/25 23:27 01/10/25 23:40 Acetaminophen 500 Mg Tablet PO 01/10/25 23:28 1,000 mg ONCE ONE Administration Albuterol/Ipratropium 3 ml 01/10/25 22:20 01/10/25 22:30 Ipratropium/Albuterol Sulfate 3 Ml Ampul.Neb 02/10/25 00:59 3 ml Q6HRT PRN Administration SHORTNESS OF BREATH/WHEEZING Allopurinol 300 mg 01/11/25 10:00 Allopurinol 300 Mg Tablet PO 02/10/25 09:59 DAILY [facility] Methylprednisolone Sodium 0 mg 01/11/25 06:00 Succinate 60 mg/ Sterile Water IV 02/10/25 05:59 2 ml Q8HT THI Diphenhydramine HCl 50 mg 01/10/25 23:27 01/10/25 23:53 Diphenhydramine Hcl 25 Mg Capsule PO 01/10/25 23:28 50 mg ONCE ONE Administration Ceftriaxone Sodium 1 gm in 100 mls @ 200 mls/hr 01/11/25 10:00 Rocephin 1 Gm / 100 Ml Nacl IV 02/10/25 09:59 Q24H10 [facility] Azithromycin 500 mg/ Sodium 250 mls @ 250 mls/hr 01/11/25 10:00 Chloride IV 02/10/25 09:59 Q24H10 [facility] Levothyroxine Sodium 112 mcg 01/11/25 10:00 Levothyroxine Sodium 112 Mcg Tablet PO 02/10/25 09:59 DAILY THI Non-Formulary Medication 1 vial 01/11/25 10:00 Arformoterol Tartrate [Brovana] 02/10/25 09:59 BID THI Non-Formulary Medication 1 each 01/11/25 10:00 Multivit-Min/Iron/Folic/Lutein [Centrum Silver Women Tablet] PO 02/10/25 09:59 DAILY THI Non-Formulary Medication 25 mg 01/11/25 10:00 Tramadol Hcl [Tramadol Hcl] PO 02/10/25 09:59 DAILY THI Non-Formulary Medication 20 mg 01/11/25 10:00 Vilazodone Hcl [Vilazodone Hcl] PO 02/10/25 09:59 DAILY THI Non-Formulary Medication 1 vial 01/11/25 10:00 Revefenacin [Yupelri] 02/10/25 09:59 DAILY THI Ondansetron HCl 4 mg 01/10/25 22:20 Ondansetron Hcl 4 Mg/2 Ml Vial IV 02/09/25 22:19 Q6H PRN PRN NAUSEA/VOMITING Pantoprazole Sodium 40 mg 01/10/25 22:30 Protonix (Pantoprazole) 40 Mg Tablet PO 02/09/25 22:29 .NOON THI Rivaroxaban 20 mg 01/10/25 23:48 01/10/25 23:53 Rivaroxaban 10 Mg Tablet PO 02/09/25 23:47 20 mg HS THI Administration Simvastatin 40 mg 01/10/25 23:47 01/10/25 23:53 Simvastatin 20 Mg Tablet PO 02/09/25 23:46 40 mg HS THI Administration Spironolactone 25 mg 01/11/25 10:00 Spironolactone 25 Mg Tablet PO 02/10/25 09:59 DAILY THI Torsemide 20 mg 01/11/25 10:00 Torsemide 20 Mg Tablet PO 02/10/25 09:59 DAILY THI Tramadol HCl 50 mg 01/11/25 22:00 01/10/25 23:39 Tramadol Hcl 50 Mg Tablet PO 02/10/25 21:59 50 mg HS THI Administration Discontinued Medications Generic Name Dose Route Start Last Admin Trade Name Freq PRN Reason Stop Dose Admin Albuterol/Ipratropium Confirm 01/10/25 18:51 Ipratropium/Albuterol Sulfate 3 Ml Ampul.Neb Administered 01/10/25 18:52 Dose 3 ml IH .STK-MED ONE Albuterol/Ipratropium 3 ml 01/10/25 07:00 Ipratropium/Albuterol Sulfate 3 Ml Ampul.Neb 01/16/25 07:00 BID THI Azithromycin Confirm 01/10/25 19:27 Azithromycin Inj Administered 01/10/25 19:28 Dose 500 mg IV .STK-MED ONE Azithromycin 500 mg/ Sodium 250 mls @ 250 mls/hr 01/10/25 19:24 01/10/25 20:42 Chloride IV 01/10/25 20:23 Infused STAT STA Infusion Ceftriaxone Sodium 2 gm in 100 mls @ 200 mls/hr 01/10/25 19:24 01/10/25 21:18 Rocephin 2 Gm/100 Ml Nacl IV 01/10/25 19:53 Infused STAT ONE Infusion Sodium Chloride Confirm 01/10/25 19:27 Sodium Chloride 0.9% 250 Ml Administered 01/10/25 19:28 Dose 250 mls @ ud IV .STK-MED ONE Ceftriaxone Sodium Confirm 01/10/25 20:42 Rocephin 2 Gm/100 Ml Nacl Administered 01/10/25 20:43 Dose 2 gm in 100 mls @ ud IV .STK-MED ONE Non-Formulary Medication 40 mg 01/11/25 22:00 Simvastatin [Simvastatin] PO 02/10/25 21:59 HS THI Non-Formulary Medication 2 tablet 01/11/25 22:00 Acetaminophen/Diphenhydramine [Tylenol Pm Exstr 500-25mg Cplt] PO 02/10/25 21:59 HS THI Non-Formulary Medication 20 mg 01/11/25 22:00 Rivaroxaban [Xarelto] PO 02/10/25 21:59 HS [facility] Tramadol HCl Confirm 01/10/25 23:38 Tramadol Hcl 50 Mg Tablet Administered 01/10/25 23:39 Dose 50 mg .ROUTE .STK-MED ONE Assessment/Plan (1) Acute respiratory failure with hypoxia Current Visit: No Status: Acute Assessment & Plan: -Increased dyspnea, sputum production, and wheezing -Continue ceftriaxone and azithromycin -Solu-Medrol 60 mg every 8 hours; taper as tolerated. -Duonebs scheduled QID and PRN -Maintain supplemental oxygen to target SpO2 8992%; wean as tolerated- currently requiring 3L continuous oxygen -Encourage pulmonary hygiene and early ambulation. -PT and OT to evaluate and assist with conditioning. -CMP/CBC reviewed Code(s): J96.01 - ACUTE RESPIRATORY FAILURE WITH HYPOXIA (2) COPD exacerbation Current Visit: Yes Status: Acute Assessment & Plan: -see ARF above Code(s): J44.1 - CHRONIC OBSTRUCTIVE PULMONARY DISEASE W (ACUTE) EXACERBATION (3) CAD (coronary artery disease) Current Visit: No Status: Acute Assessment & Plan: -continue home regimen Code(s): I25.10 - ATHSCL HEART DISEASE OF [place] CORONARY ARTERY W/O ANG PCTRS (4) GLORIA (obstructive sleep apnea) Current Visit: Yes Status: Acute Assessment & Plan: -Continue CPAP Code(s): G47.33 - OBSTRUCTIVE SLEEP APNEA (ADULT) (PEDIATRIC) (5) CKD (chronic kidney disease) Current Visit: Yes Status: Acute Assessment & Plan: -Baseline creat around 1.6; patient creat at 1.43 consistent with stable CKD stage 3b -Avoid nephrotoxins, particularly NSAIDs and IV contrast. -Maintain adequate hydration; monitor fluid balance closely. -Adjust renally cleared medications accordingly -Monitor renal function and electrolytes daily during admission. -Continue outpatient nephrology follow-up as indicated. Code(s): N18.9 - CHRONIC KIDNEY DISEASE, UNSPECIFIED (6) History of DVT (deep vein thrombosis) Current Visit: No Status: Acute Assessment & Plan: -Continue xarelto -Monitor for bleeding complications, especially while on steroids. -Encourage ambulation Code(s): Z86.718 - PERSONAL HISTORY OF OTHER VENOUS THROMBOSIS AND EMBOLISM (7) History of breast cancer Current Visit: No Status: Acute Assessment & Plan: -Noted, adds complexity continue routine surveillance per oncology recommendations. Code(s): Z85.3 - PERSONAL HISTORY OF MALIGNANT NEOPLASM OF BREAST (8) HLD (hyperlipidemia) Current Visit: No Status: Chronic Assessment & Plan: -continue statin Code(s): E78.5 - HYPERLIPIDEMIA, UNSPECIFIED (9) Morbid obesity with BMI of 40.0-44.9, adult Current Visit: No Status: Chronic Assessment & Plan: -advised diet/exercise Code(s): E66.01 - MORBID (SEVERE) OBESITY DUE TO EXCESS CALORIES; Z68.41 - BODY MASS INDEX [BMI] 40.0-44.9, ADULT (10) Hypothyroid Current Visit: No Status: Chronic Assessment & Plan: -continue levothyroxine Code(s): E03.9 - HYPOTHYROIDISM, UNSPECIFIED
[2025-01-11] MEDS ORDERED: Sterile H2O 10 ml IJ ONE ×3 (06:12→21:33)
[2025-01-11] MEDS: solu-MEDROL 60 MG, Sterile H2O 10 ml 2 ML IV SCH (06:20)
[2025-01-11] MEDS ORDERED: MEDICATION INTERVENTION MC SCH ×3 (07:30)
[2025-01-11] MEDS: DEMADEX 20 MG PO SCH (08:51)
[2025-01-11] MEDS: THERAGRAN MULTIVITAMIN PO SCH (08:51)
[2025-01-11] MEDS: ULTRAM 50 MG PO SCH (08:51)
[2025-01-11] MEDS: ZYLOPRIM 300 MG PO SCH (08:52)
[2025-01-11] MEDS: Aldactone 25 MG PO SCH (08:52)
[2025-01-11] MEDS: SYNTHROID 112 MCG PO SCH (08:52)
--- NOTE | 2025-01-11 08:54 | XRAY ---
Indication: Short of breath. Comparison: November 22, 2024 Portable apical lordotic chest again hyperinflated with chronic lung markings. No focal infiltrate, consolidation, or large effusion. Heart not enlarged again with large hiatal hernia and intrathoracic stomach. Bony thorax intact again with osteopenia and mild degenerative changes. Impression: Nonacute chest with chronic features.
[2025-01-11] MEDS: PATIENT OWN MEDICATION NEB SCH ×2 (09:23)
[2025-01-11] MEDS ORDERED: PROVENTIL 2.5 MG/3 ML NEB IH ONE (09:26)
[2025-01-11] MEDS: PROVENTIL 2.5 MG/3 ML NEB IH SCH (09:27)
[2025-01-11] MEDS ORDERED: PULMICORT 0.5 MG/2 ML RESPULES IH PRN (09:36)
[2025-01-11] MEDS ORDERED: REVEFENACIN 175 MCG/3 ML IH SCH (10:00)
[2025-01-11] MEDS ORDERED: NON-FORMULARY ITEM (Multivit-Min/Iron/Folic/Lutein [Centrum Silver Women Tablet] 1 EACH Ta PO SCH (10:00)
[2025-01-11] MEDS ORDERED: NON-FORMULARY ITEM (Vilazodone Hcl [Vilazodone Hcl] 20 MG Tablet) PO SCH (10:00)
[2025-01-11] MEDS ORDERED: TRAMADOL HCL 25 MG PO SCH (10:00)
[2025-01-11] MEDS ORDERED: ARFORMOTEROL TARTRATE 15 MCG/2 ML IH SCH (10:00)
[2025-01-11] MEDS: Protonix 40MG Tablet PO SCH (13:03)
[2025-01-11] MEDS: TYLENOL 325 MG PO PRN (21:38)
[2025-01-11] MEDS: ROCEPHIN 1 GM / 100 ML NaCl 1 GM/100 ML IVPB IV SCH (21:39)
[2025-01-11] MEDS ORDERED: NON-FORMULARY ITEM (Rivaroxaban [Xarelto] 20 MG Tablet) PO SCH (22:00)
[2025-01-11] MEDS ORDERED: PULMICORT 0.5 MG/2 ML RESPULES IH SCH (22:00)
[2025-01-11] MEDS ORDERED: NON-FORMULARY ITEM (Simvastatin [Simvastatin] 40 MG Tablet) PO SCH (22:00)
[2025-01-11] MEDS ORDERED: ZITHROMAX IV IV ONE (22:02)
[2025-01-11] MEDS: ZITHROMAX IV*** 500 MG in Sodium Chloride 0.9% 250 ML 250 ML IV SCH (22:22)
[2025-01-12] MEDS ORDERED: Sterile H2O 10 ml IJ ONE (05:25)
[2025-01-12 05:35] LABS: BASOPHIL % 0.2 % (0.1-1.2); Basophil (Absolute #) 0.03 x10^3/uL (0.01-0.08); Eosinophil (Absolute #) 0 x10^3/uL (0.04-0.36); Hematocrit 34.5 % (34.1-44.9); Hemoglobin 10.8 g/dL (11.2-15.7); IMMATURE GRAN # 0.05 x10^3u/L (0.001-0.031); IMMATURE GRAN % 0.4 % (0.001-0.429); Lymphocyte (Absolute #) 1.06 x10^3/uL (1.18-3.74); Mean Corpuscular Hemoglobin 30.9 pg (25.6-32.2); Mean Corpuscular Hgb Concent. 31.3 g/dL (32.2-35.5); Monocyte (Absolute #) 0.11 x10^3/uL (0.24-0.86); NUCLEATED RBC # 0.00 x10^3u/L (0.00-0.012); NUCLEATED RBC % 0.0 % (0.00-0.2); Platelet Count 233 x10^3/uL (182-369); Red Blood Count 3.49 x10^6/uL (3.93-5.22); White Blood Count 12.1 x10^3/uL (3.98-10.04)
[2025-01-12 05:51] LABS: Calcium 9.4 mg/dL (8.4-10.2); Carbon Dioxide 25.0 mmol/L (22-30); Creatinine 1 1.2 mg/dL (0.52-1.04); EST GLOMERULAR FILTRATION RATE 45.2 ML/MIN; Glucose 188.0 mg/dL (74-106); Potassium 4.5 mmol/L (3.5-5.1); SGOT/AST 32.0 U/L (14-36); SGPT/ALT 23.0 U/L (0-35); Total Protein 6.9 g/dL (6.3-8.2)
[2025-01-12] MEDS ORDERED: PROVENTIL 2.5 MG/3 ML NEB IH ONE (06:53)
[2025-01-12] MEDS: PULMICORT 0.5 MG/2 ML RESPULES IH SCH (07:15)
[2025-01-12] MEDS: PROVENTIL 2.5 MG/3 ML NEB IH SCH (07:15)
[2025-01-12 07:27] VITALS: O2SAT 92
[2025-01-12 07:41] VITALS: BP 119/78; PULSE 75; RESP 16; TEMP 97.7
--- NOTE | 2025-01-12 10:28 | PCM.DS ---
Discharge Summary Date of Admission: 01/10/25 21:21 Date of Discharge: 01/12/25 Admitting Physician: TRUMAN ALVARADO MD Primary Care Provider: CLAIRE MAY MD Allergies Allergies No Known Drug Allergies Allergy (Verified 01/10/25 18:57) Hospital Summary - Hospital Course Hospital Course: Mrs. Fajardo is an 84-year-old female with a complex history of COPD, obstructive sleep apnea on CPAP, CAD, CKD stage 3b, prior DVT on Xarelto, depression, morbid obesity, hypothyroidism, hyperlipidemia, and remote breast cancer who presented on January 10, 2025 with acute shortness of breath and a productive yellow- brown cough that began the day prior. She denied fever or chills but reported increased wheezing and generalized weakness. She typically uses 2 L oxygen at night with CPAP and intermittently during the day, but required 3 L upon arrival. In the emergency department, she was hemodynamically stable with oxygen saturation of 96% on 2 L nasal cannula. Chest X-ray revealed no acute infiltrate or consolidation. Initial labs showed macrocytic anemia with hemoglobin 10.4; white blood cell count and platelets were normal. BMP demonstrated an anion gap of 15.9 that improved to 9.6 by the next day. Creatinine was 1.46 (near her baseline of 1.41.6) and troponins 3 were negative. BNP was within normal limits, and both respiratory pathogen testing and UA were negative. She was treated with Duonebs, azithromycin, ceftriaxone, and IV fluids; no steroids were given initially. She was admitted for acute COPD exacerbation with associated acute respiratory failure with hypoxia. During hospitalization, she was continued on IV ceftriaxone, azithromycin, and scheduled bronchodilators, with Solu-Medrol initiated on January 11. She reported progressive improvement in dyspnea, though productive cough and wheezing persisted. She required 3 L oxygen throughout her stay and engaged in early ambulation. By January 12, 2025, she remained stable on 3 L oxygen, endorsing significantly improved breathing, improved cough, stable appetite, and good oral intake. Laboratory studies that morning showed leukocytosis to 12.1felt to be steroid-relatedand creatinine improved to 1.20, below her usual baseline. She denied fever, chest pain, dizziness, abdominal pain, nausea, vomiting, or diarrhea. She ambulated independently and expressed clear desire for discharge, reporting that she felt safe and stable to continue recovery at home. After shared decision-making, and given clinical improvement, she was discharged home on cefuroxime, a prednisone burst, continuation of her home nebulizer treatments, and her chronic inhaler regimen. She was counseled to follow up with her seo coordinator, laserist (whom she has not seen in some time), and primary care provider. Home oxygen confirmed, with portable tanks arranged. Discharge Note New Diagnosis:COPD exacerbation New Medications: Cefuroxime Follow Up: PCP/pulm/nephrology I spent 35 minutes [id number] with the patient on the day of discharge performing discharge exam, discussing hospital stay and discharge instructions with patient and caregivers, preparation of discharge records, prescriptions & referral forms and addressing any questions/concerns the patient had as documented above. - Vitals & Intake/Output Vital Signs: Vital Signs Temperature 97.7 F 01/12/25 07:38 Pulse Rate 75 01/12/25 07:38 Respiratory Rate 16 01/12/25 07:38 Blood Pressure 119/78 01/12/25 07:38 O2 Sat by Pulse Oximetry 92 L 01/12/25 07:38 Intake & Output: Intake & Output 01/09/25 01/10/25 01/11/25 01/12/25 11:59 11:59 11:59 11:59 Intake Total 540 1470 Output Total 400 1200 Balance 140 270 Weight 124 kg - Lab Result Diagrams: 01/12/25 05:32 01/12/25 05:32 Lab Results-Last 24 Hrs: Lab Results-Last 24 Hours 01/12/25 01/12/25 Range/Units 05:32 05:32 WBC 12.1 H (3.98-10.04) x10^3/uL RBC 3.49 L (3.93-5.22) x10^6/uL Hgb 10.8 L (11.2-15.7) g/dL Hct 34.5 (34.1-44.9) % MCV 98.9 H (79.4-94.8) fL MCH 30.9 (25.6-32.2) pg MCHC 31.3 L (32.2-35.5) g/dL RDW 14.6 H (11.7-14.4) % Plt Count 233 (182-369) x10^3/uL MPV 9.1 L (9.4-12.3) fL Gran % 89.7 H (34.0-71.1) % Immature Gran % (Auto) 0.4 (0.001-0.429) % Nucleat RBC Rel Count 0.0 (0.00-0.2) % Eos # (Auto) 0 L (0.04-0.36) x10^3/uL Immature Gran # (Auto) 0.05 H (0.001-0.031) x10^3u/L Absolute Lymphs (auto) 1.06 L (1.18-3.74) x10^3/uL Absolute Monos (auto) 0.11 L (0.24-0.86) x10^3/uL Absolute Nucleated RBC 0.00 (0.00-0.012) x10^3u/L Lymphocytes % 8.8 L (19.3-51.7) % Monocytes % 0.9 L (4.7-12.5) % Eosinophils % 0.0 L (0.7-5.8) % Basophils % 0.2 (0.1-1.2) % Absolute Granulocytes 10.86 H (1.56-6.13) x10^3/uL Basophils # 0.03 (0.01-0.08) x10^3/uL Sodium 133 L (135-145) mmol/L Potassium 4.5 (3.5-5.1) mmol/L Chloride 101 (98-107) mmol/L Carbon Dioxide 25 (22-30) mmol/L Anion Gap 12.3 (5-15) MEQ/L BUN 30 H (7-17) mg/dL Creatinine 1.20 H (0.52-1.04) mg/dL Estimated GFR 45.2 ML/MIN Glucose 188 H (74-106) mg/dL Calcium 9.4 (8.4-10.2) mg/dL Total Bilirubin 0.20 (0.2-1.3) mg/dL AST 32 (14-36) U/L ALT 23 (0-35) U/L Alkaline Phosphatase 62 (38-126) U/L Serum Total Protein 6.9 (6.3-8.2) g/dL Albumin 4.1 (3.5-5.0) g/dL Micro Results-Entire Visit: Microbiology 01/10/25 19:08 Blood Culture - Preliminary Blood 01/10/25 19:12 Blood Culture - Preliminary Blood - Radiology Exams Ordered Rad Exams-Entire Visit: Radiology Procedures Category Date Time Status CHEST 1 VIEW (PORTABLE) Stat Exams 01/10/25 19:19 Completed - Procedures and Test Procedures and Tests throughout Hospitalization: Therapy Orders & Screens 01/10/25 19:00 Respiratory Therapy Assessment DAILY Comment: 01/10/25 22:20 PT Eval & Treat ( Order) ONCE Reason for Eval:: weakness Diagnosis: COPD exacerbation EKG PRN Comment: Diagnosis: COPD exacerbation Oxygen Nasal Cannula 2 lpm Comment: Diagnosis: COPD exacerbation Respiratory Therapy Consult ONCE Comment: Reason For Exam: Diagnosis: COPD exacerbation OT Eval and Treat (MD Order) ONCE Comment: Physician Instructions: Reason For Exam: Reason for Evaluation: weakness Diagnosis: COPD exacerbation 01/10/25 23:13 BiPap/CPAP ROUTINE Comment: as per home Diagnosis: COPD exacerbation 01/11/25 09:27 Respiratory Nebulizer UD Comment: Diagnosis: COPD exacerbation 01/11/25 18:15 Flutter Therapy UD Comment: Diagnosis: COPD exacerbation Discharge Exam General Appearance: no apparent distress Neurologic Exam: alert, oriented x 3, cooperative Eye Exam: PERRL Ears, Nose, Throat Exam: normal ENT inspection Neck Exam: normal inspection Respiratory Exam: diminished breath sounds, wheezing Cardiovascular Exam: regular rate/rhythm, normal heart sounds Gastrointestinal/Abdomen Exam: soft, normal bowel sounds Pelvic Exam: deferred Rectal Exam: deferred Back Exam: normal inspection Extremity Exam: normal inspection Skin Exam: normal color Final Diagnosis/Problem List - Final Discharge Diagnosis/Problem (1) Acute respiratory failure with hypoxia Current Visit: No Status: Acute Assessment & Plan: Continue supplemental oxygen at 3 L and wean to maintain SpO2 8992% Cefuroxime 500 mg PO BID x 5 days for COPD exacerbation coverage Prednisone 20mg PO bid x 5 days Continue Duonebs every 6 hours PRN for wheezing and dyspnea. Continue all home inhalers, including long-acting bronchodilators. Encourage pulmonary hygiene (incentive spirometry, hydration) and walking multiple times per day. Close outpatient pulmonology follow-up recommended. Return precautions reviewed: worsening dyspnea, fever, inability to maintain oxygen saturation, new chest pain, or confusion. Code(s): J96.01 - ACUTE RESPIRATORY FAILURE WITH HYPOXIA (2) COPD exacerbation Current Visit: Yes Status: Acute Assessment & Plan: see ARF Code(s): J44.1 - CHRONIC OBSTRUCTIVE PULMONARY DISEASE W (ACUTE) EXACERBATION (3) CAD (coronary artery disease) Current Visit: No Status: Acute Assessment & Plan: Continue home statin and antiplatelet/anticoagulation regimen as previously prescribed. Code(s): I25.10 - ATHSCL HEART DISEASE OF [place] CORONARY ARTERY W/O ANG PCTRS (4) GLORIA (obstructive sleep apnea) Current Visit: Yes Status: Acute Assessment & Plan: Continue consistent nightly CPAP use. Code(s): G47.33 - OBSTRUCTIVE SLEEP APNEA (ADULT) (PEDIATRIC) (5) CKD (chronic kidney disease) Current Visit: Yes Status: Acute Assessment & Plan: Creatinine improved to 1.20, below baselinecontinue avoiding NSAIDs and nephrotoxins. Maintain adequate hydration. All renally cleared medications adjusted as appropriate. Strongly advised to resume follow-up with outpatient nephrology. Monitor BMP at PCP follow-up. Code(s): N18.9 - CHRONIC KIDNEY DISEASE, UNSPECIFIED (6) History of DVT (deep vein thrombosis) Current Visit: No Status: Acute Assessment & Plan: Continue Xarelto at her established dose. Monitor for bruising or bleeding while also on systemic steroids. Encourage ambulation and hydration. Code(s): Z86.718 - PERSONAL HISTORY OF OTHER VENOUS THROMBOSIS AND EMBOLISM (7) History of breast cancer Current Visit: No Status: Acute Assessment & Plan: Continue routine oncology surveillance Code(s): Z85.3 - PERSONAL HISTORY OF MALIGNANT NEOPLASM OF BREAST (8) HLD (hyperlipidemia) Current Visit: No Status: Chronic Assessment & Plan: Continue home statin therapy Code(s): E78.5 - HYPERLIPIDEMIA, UNSPECIFIED (9) Morbid obesity with BMI of 40.0-44.9, adult Current Visit: No Status: Chronic Assessment & Plan: Encourage gradual weight loss through diet and activity as tolerated. Follow up with PCP for ongoing weight-management support Code(s): E66.01 - MORBID (SEVERE) OBESITY DUE TO EXCESS CALORIES; Z68.41 - BODY MASS INDEX [BMI] 40.0-44.9, ADULT (10) Hypothyroid Current Visit: No Status: Chronic Assessment & Plan: Continue levothyroxine at her established dose. Code(s): E03.9 - HYPOTHYROIDISM, UNSPECIFIED - Discharge Discharge Date: 01/12/25 Disposition: Home, Self-Care Condition: Stable Prescriptions: New cefuroxime axetiL [Cefuroxime] 500 mg PO BID 5 Days #10 tablet Prednisone 20 mg [Deltasone 20 mg] 20 mg PO BID 5 Days #10 tablet Continue Levothyroxine Sodium 112 Mcg [Synthroid 112 Mcg] 112 mcg PO DAILY Torsemide 20 mg [Demadex 20 mg] 20 mg PO DAILY Allopurinol 300 mg [Zyloprim 300 mg] 300 mg PO DAILY Vilazodone HCl 20 mg PO DAILY Tramadol HCl 50 mg [Ultram 50 mg] 50 mg PO HS Tramadol HCl 25 mg PO DAILY Spironolactone 25 mg PO DAILY Simvastatin 40 mg PO HS Rivaroxaban [Xarelto] 20 mg PO HS Pantoprazole Sodium [Protonix] 40 mg PO .NOON Multivit-Min/Iron/Folic/Lutein [Centrum Silver Women Tablet] 1 each PO DAILY Revefenacin [Yupelri] 1 vial IH DAILY Arformoterol Tartrate [Brovana] 1 vial IH BID Discontinued Acetaminophen/Diphenhydramine [Tylenol Pm Exstr 500-25Mg Cplt] 2 tablet PO HS Instructions: COPD exacerbation - Discharge instructions Additional Instructions: [facility] WILL DELIVER YOU MORE PORTABLES NEXT TIME THEY ARE IN [place], IF NEEDED SOONER YOU CAN CALL AND REQUEST PORTABLE DELIVERY FROM [facility] AT [phone]. Follow up with: WILFREDO LYNN MD [CONSULTING PHYSICIAN, NEPHROLOGY] - 01/23/25 3:40 pm Referral Note: at [facility] CLAIRE MAY MD [Primary Care Provider, FAMILY PRACTICE] - 01/18/25 2:20 pm MINNIE DOYLE MD [NON-STAFF PHY W/O PRIVILEGES, PULMONARY MEDICINE] - Office will call patient
== END 2025-01-12 11:37 | disposition home health service (06) ==
LOC: ED 18:36 → MED SURG 21:21
PROVIDERS: ADMIT Internal Medicine; ATTEND Internal Medicine
DX: J96.01 Acute respiratory failure with hypoxia (principal); J44.1 Chronic obstructive pulmonary disease with (acute) exacerbation; I25.10 Atherosclerotic heart disease of native coronary artery without angina pectoris; G47.30 Sleep apnea, unspecified; N18.30 Chronic kidney disease, stage 3 unspecified; E03.9 Hypothyroidism, unspecified; E78.5 Hyperlipidemia, unspecified; Z85.3 Personal history of malignant neoplasm of breast; R53.1 Weakness; D72.829 Elevated white blood cell count, unspecified; Z79.01 Long term (current) use of anticoagulants; Z86.718 Personal history of other venous thrombosis and embolism; Z79.899 Other long term (current) drug therapy; E66.01 Morbid (severe) obesity due to excess calories; Z68.41 Body mass index [BMI] 40.0-44.9, adult
CPT/HCPCS: 36415; 71045; 80048; 80053; 81001; 83880; 84484; 85025; 85027; 87040; 87637; 93005; 93041; 93268; 94640; 94660; 94667; 94668; 94760; 96365; 97161; 99285; G0378; Q3014